=== PATIENT | female | born 1935 | race Caucasian/White ===

== ENCOUNTER 2022-10-17 07:57 | Outpatient (CLI) | payer MEDICARE, BC, SELFPAY ==
--- NOTE | 2022-10-17 08:15 | CRLHL7_ITS ---
For Patients: As a result of the Century Cures Act, medical imaging exams and procedure reports are released immediately into your electronic medical record. You may view this report before your referring provider. If you have questions, please contact your health care provider. INDICATION: Right upper quadrant pain COMPARISON: Ultrasound 12/15/2017, [facility]IDA 01/27/2018 TECHNIQUE: Real time ece scale imaging and color Doppler analysis was performed of the right upper quadrant. FINDINGS: The patient`s liver is of normal size and has uniform echogenicity. There is a normal appearance of the hepatic IVC and proximal abdominal aorta. There is no evidence of ascites. 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 No stones or sludge. The gallbladder wall measures 2.6 mm in thickness. The common bile duct is of normal size and measures 2.6 mm in diameter at the level of the sterling hepatis. The pancreas appears normal. There is no evidence of a stone or hydronephrosis within the right kidney. The right kidney measures 8.8 cm in length. IMPRESSION: The gallbladder is contracted, unchanged from 2018. Remainder normal. Dictated by Misael Olson MD @ 10/17/2022 9:27:45 AM (Electronically Signed)
== END 2022-10-17 07:58 | disposition home or self-care (01) ==
LOC: US 07:58
PROVIDERS: PCP Internal Medicine; Visit Provider Internal Medicine
DX: R10.11 Right upper quadrant pain (principal)
CPT/HCPCS: 76705

== ENCOUNTER 2022-10-18 13:44 | Outpatient (CLI) | payer MEDICARE, BC, SELFPAY | END 2022-10-18 13:45 | disposition home or self-care (01) | LOC: NFLDREF 14:29 | PROVIDERS: PCP Internal Medicine; Visit Provider Internal Medicine | DX: R19.5 Other fecal abnormalities (principal) | CPT/HCPCS: 87045; 87046; 87077; 87252; 87427 ==

== ENCOUNTER 2022-12-09 19:02 | Outpatient (CLI) | payer MEDICARE, BC, SELFPAY | END 2022-12-09 19:03 | disposition home or self-care (01) | LOC: NFLDUCREF 12-11 13:47 | PROVIDERS: PCP Internal Medicine; Visit Provider Nurse Practitioner Family | DX: R30.0 Dysuria (principal); N39.0 Urinary tract infection, site not specified | CPT/HCPCS: 87086 ==

== ENCOUNTER 2022-12-16 14:57 | Outpatient (CLI) | payer MEDICARE, BC, SELFPAY | END 2022-12-16 14:58 | disposition home or self-care (01) | PROVIDERS: PCP Internal Medicine; Visit Provider Internal Medicine | DX: N39.0 Urinary tract infection, site not specified (principal) | CPT/HCPCS: 87086 ==

== ENCOUNTER 2022-12-23 08:13 | Outpatient (CLI) | payer MEDICARE, BC, SELFPAY | END 2022-12-23 08:14 | disposition home or self-care (01) | LOC: NFLDREF 12-27 09:55 | PROVIDERS: PCP Internal Medicine; Referring Provider Internal Medicine; Visit Provider Internal Medicine | DX: R30.9 Painful micturition, unspecified (principal); N76.0 Acute vaginitis | CPT/HCPCS: 87086 ==

== ENCOUNTER 2023-06-12 13:44 | Outpatient (CLI) | payer MEDICARE, BC, SELFPAY ==
--- NOTE | 2023-06-12 14:00 | CRLHL7_ITS ---
For Patients: As a result of the Century Cures Act, medical imaging exams and procedure reports are released immediately into your electronic medical record. You may view this report before your referring provider. If you have questions, please contact your health care provider. BILATERAL SCREENING MAMMOGRAM WITH COMPUTER-AIDED DETECTION AND TOMOSYNTHESIS TECHNIQUE: CC and MLO views were obtained. These mammographic images have been obtained using full-field digital technique. These mammographic images were interpreted with the benefit of computer-aided detection. Breast Tomosynthesis was used in this interpretation. COMPARISON FILM: 03/19/22, 03/16/21, 03/15/20. FINDINGS: There are scattered areas of fibroglandular density IMPRESSION: There is no radiographic evidence for malignancy. ASSESSMENT: BI-RADS Category 2: Benign RECOMMENDATION: Routine screening mammogram in 1 year. A lay language report of this examination will be provided to the patient. Misael Olson M.D. Diagnostic Radiologist [email or web address] CELI/Dictated by: Misael Olson MD @ 06/19/2023 12:05:00 PM (Electronically Signed)
== END 2023-06-12 13:45 | disposition home or self-care (01) ==
LOC: MAMMO 13:46
PROVIDERS: PCP Physician Assistant; Visit Provider Physician Assistant
DX: Z12.31 Encounter for screening mammogram for malignant neoplasm of breast (principal)
CPT/HCPCS: 77063; 77067

== ENCOUNTER 2023-07-07 07:30 | Outpatient (RCR) | payer MEDICARE, BC, SELFPAY | END 2023-08-11 08:25 | disposition home or self-care (01) | PROVIDERS: PCP Internal Medicine; Visit Provider Urology | DX: M79.605 Pain in left leg (principal); M62.81 Muscle weakness (generalized); Z51.89 Encounter for other specified aftercare | CPT/HCPCS: 97110; 97161 ==

== ENCOUNTER 2023-07-21 10:19 | Emergency (ER) | payer MEDICARE, BC, SELFPAY ==
[2023-07-21 10:26] VITALS: BP 155/81; PULSE 77; RESP 16; TEMP 36.7; O2SAT 100; BMI 20.4
--- NOTE | 2023-07-21 10:45 | ED_ITS ---
HPI - General Adult General Time Seen by Provider: 10:45 Date Seen: 07/21/23 Chief complaint: Lower Extremity Swelling Stated complaint: Swelling in L leg Time Seen by Provider: 07/21/23 10:40 Source: patient and RN notes reviewed Mode of arrival: ambulatory Limitations: no limitations History of Present Illness HPI narrative: This 88-year-old female is ambulatory into the ED with concern of increasing left lower extremity swelling. She has a history of left leg swelling which reportedly is worse than her right. She does endorse that she has a compression stocking that was prescribed by her primary provider but admits that she is not diligent in wearing it. She has no history of a DVT or thromboembolic disease. She is not on any blood thinners. She is concerned as she has noted some red dots. She has no chest pain, no shortness of breath, no respiratory symptoms. Related Data Home Medications Medication Instructions Recorded Confirmed calcium carbonate 500 mg calcium 1,000 mg PO QDAY 05/15/22 07/21/23 (1,250 mg) tablet cholecalciferol (vitamin D3) 50 50 mcg PO QDAY 05/15/22 07/21/23 mcg (2,000 unit) capsule zinc gluconate 30 mg tablet 30 mg PO 2XW 05/15/22 07/21/23 Previous Rx's Medication Instructions Recorded lovastatin 10 mg tablet 5 mg (1/2 x 10 mg) PO QDAY 05/17/22 Hyperlipidemia #90 tabs estradiol 0.01% (0.1 mg/gram) 2 g vaginal QDAY Vaginitis #42.5 01/29/23 vaginal cream (Estrace) grams gabapentin 100 mg capsule 100 - 200 mg (1 - 2 x 100 mg) PO 03/07/23 QID Neuropathy #90 caps Allergies Allergy/AdvReac Type Severity Reaction Status Date / Time No Known Allergies Allergy Verified 07/21/23 10:31 Review of Systems Status of ROS: Reports: 6 or more systems reviewed and unremarkable except as noted in History and below [facility] Medical History Vaginitis ?N76.0 - Acute vaginitis (ICD-10) UTI (urinary tract infection) ?N39.0 - Urinary tract infection, site not specified (ICD-10) Health care directive on file ?Z78.9 - Other specified health status (ICD-10) Loose stools ?R19.5 - Other fecal abnormalities (ICD-10) Trochanteric bursitis, right hip ?M70.61 - Trochanteric bursitis, right hip (ICD-10) Surgical History History of appendectomy (04/19/11) ?Z90.49 - Acquired absence of other specified parts of digestive tract (ICD- 10) Social History Narrative: health care directive on file- health care directive completed on 06/28/20 and sent for scanning on 07/07/20. Smoking Status: Never smoker Exam Const: Vital Signs, click to edit/add: Vital Signs - 24 hr 07/21/23 10:26 Temperature 98.0 F Pulse Rate [Pulse Oximeter] 77 Respiratory Rate 16 Blood Pressure [Ri ght Upper Arm] 155/81 H Pulse Oximetry 100 Oxygen Delivery Me thod Room Air This 88-year-old female is alert, interactive, no apparent distress seen in exam room 7, lying comfortably on the bed. Face atraumatic, sclera clear, conjugate gaze. Lungs are clear with good air entry, no wheezing crackles. CV regular rate and rhythm, no murmur, normal S1 and S2. Abdomen is soft, no rebound or guarding. Her lower extremities show that she has about 2+ pretibial pitting edema in the left lower extremity, none on the right. She has capillary breakage with small little micro 0 non blanchable hemorrhages in the lower left extremity just above the ankle. There is some underlying hemosiderin staining that can be seen as well distally in this leg. There is no evidence of any erythematous changes such as cellulitis. Reviewed with her the capillary breakage that happens with edema. Calf is nontender at this point. Documenting provider has reviewed patient's vital signs: yes Course Course ED Course: Will ensure no underlying thromboembolic disease with venous ultrasound of this left lower extremity. If this is negative, have discussed with her the importance of treating edema and trying to prevent it from sitting in the extremity chronically. Did review that there can be chronic skin changes in breakdown if left untreated. She does endorse that the stocking is difficult for her to get on. At this time, will ensure no underlying thromboembolic disease and if we do diagnose it, obviously treat accordingly. Reevaluation(s) Time of Reevaluation #1: 11:35 Reevaluation #1: Reviewed with patient that there was no evidence of a DVT on this imaging study. We reviewed the edema in her leg, which is swelling. She wanted to know what to do about the swelling, reviewed with her that she really needed to manage this with elevating and using her compression stocking. They wanted to know if this would go away with time, reviewed with him that this is going to be a chronic problem from what I am seen in her leg currently. She is really going to need to manage with using the stocking to prevent the edema. Can follow up with her primary care provider and discuss diuretic use if felt appropriate for her. The compression stocking and elevation is where I would recommend starting, this is the least invasive for her and less likely to give side effects of medications. Her edema is not significant enough that I think she needs anything further than these management strategies at this time, follow up with her primary care provider in clinic as well. Vital Signs Vital signs: Initial Vital Signs Temperature 98.0 F 07/21/23 10:26 Temperature Source Temporal Artery Scan 07/21/23 10:26 Pulse Rate 77 07/21/23 10:26 Respiratory Rate 16 07/21/23 10:26 Blood Pressure 155/81 H 07/21/23 10:26 Blood Pressure Mean 105 07/21/23 10:26 Blood Pressure Position Sitting 07/21/23 10:26 Pulse Oximetry 100 07/21/23 10:26 Oxygen Delivery Method Room Air 07/21/23 10:26 Vital Signs Temperature 98.0 F 07/21/23 10:26 Pulse Rate 77 07/21/23 10:26 Respiratory Rate 16 07/21/23 10:26 Blood Pressure 155/81 H 07/21/23 10:26 Pulse Oximetry 100 07/21/23 10:26 Oxygen Delivery Method Room Air 07/21/23 10:26 Temperature 98.0 F 07/21/23 10:26 Pulse Rate 77 07/21/23 10:26 Respiratory Rate 16 07/21/23 10:26 Blood Pressure 155/81 H 07/21/23 10:26 Pulse Oximetry 100 07/21/23 10:26 Oxygen Delivery Method Room Air 07/21/23 10:26 Medical Decision Making Imaging Data Venous US: Attestation: I have reviewed the pertinent imaging results. Radiologist's impression: Patient: JULIANA IRAHETA Facility:?[facility] Patient ID:?[id number] Site Patient ID:?[id number]. Site :?[id number] Study:?US Extremity Left DVT-07/21/2023 11:35:22 AM Ordering Physician:Liam Hagen Final Report: INDICATION: left lag/foot swelling/pain/redness COMPARISON: None. TECHNIQUE: A compression venous ultrasound exam was performed of the left lower extremity using cee-scale imaging, color Doppler and spectral Doppler analysis. FINDINGS: Sonographic imaging of the left lower extremity demonstrates normal compressibility and color Doppler venous blood flow within the common femoral vein, deep femoral vein, and the proximal greater saphenous vein. Within the thigh, the femoral vein is patent and compressible. At a lower level, the popliteal and posterior tibial veins also show normal compressibility and color Doppler venous blood flow. Limited imaging of the contralateral groin demonstrates a normal spectral waveform and color Doppler venous blood flow within the right common femoral vein. IMPRESSION: Normal venous ultrasound exam. No evidence of deep vein thrombosis within the left lower extremity. Dictated by Misael Olson MD @ 07/21/2023 11:45:42 AM (Electronic Signature) Critical Care Time Critical Care Time Critical Care Time: No Discharge Plan Discharge Clinical Impression: Edema of left lower extremity Patient Disposition: Home, Self-Care Condition: Stable Instructions: Leg Edema (ED) Additional Instructions: Need to wear your compression stocking every day during the day to help keep this edema down. Elevating your leg when you are sitting can help diminish edema as well. Recommend you follow-up with your primary care provider within the next few weeks to review your peripheral edema and management strategies. There is no evidence of blood clot at this time, no clinical evidence of any infection. The little red spots you are seen are little blood vessel breaks from the edema in the skin. Activity Level: Activity as Tolerated Prescriptions: No Action calcium carbonate 500 mg calcium (1,250 mg) tablet 1,000 mg PO QDAY cholecalciferol (vitamin D3) 50 mcg (2,000 unit) capsule 50 mcg PO QDAY zinc gluconate 30 mg tablet 30 mg PO 2XW lovastatin 10 mg tablet 5 mg PO QDAY Qty: 90 3RF estradiol [Estrace] 0.01 % (0.1 mg/gram) cream 2 g vaginal QDAY Qty: 42.5 2RF gabapentin 100 mg capsule 100 - 200 mg PO QID Qty: 90 3RF Rx Instructions: 100mg TID and 200mg at HS Follow Up/Referrals: Gisel Mullen PA-C [Primary Care Provider] - Stand Alone [facility] Info Inst[facility]
--- NOTE | 2023-07-21 10:50 | CRLHL7_ITS ---
For Patients: As a result of the Century Cures Act, medical imaging exams and procedure reports are released immediately into your electronic medical record. You may view this report before your referring provider. If you have questions, please contact your health care provider. INDICATION: left lag/foot swelling/pain/redness COMPARISON: None. TECHNIQUE: A compression venous ultrasound exam was performed of the left lower extremity using cee-scale imaging, color Doppler and spectral Doppler analysis. FINDINGS: Sonographic imaging of the left lower extremity demonstrates normal compressibility and color Doppler venous blood flow within the common femoral vein, deep femoral vein, and the proximal greater saphenous vein. Within the thigh, the femoral vein is patent and compressible. At a lower level, the popliteal and posterior tibial veins also show normal compressibility and color Doppler venous blood flow. Limited imaging of the contralateral groin demonstrates a normal spectral waveform and color Doppler venous blood flow within the right common femoral vein. IMPRESSION: Normal venous ultrasound exam. No evidence of deep vein thrombosis within the left lower extremity. Dictated by Misael Olson MD @ 07/21/2023 11:45:42 AM (Electronically Signed)
== END 2023-07-21 11:47 | disposition home or self-care (01) ==
PROVIDERS: Emergency Provider Family Medicine; PCP Physician Assistant
DX: R60.9 Edema, unspecified (principal)
CPT/HCPCS: 93971; 99283; 99284

== ENCOUNTER 2023-07-23 10:30 | Outpatient (RCR) | payer MEDICARE, BC, SELFPAY | END 2023-09-22 09:00 | disposition home or self-care (01) | PROVIDERS: PCP Physician Assistant; Visit Provider Physician Assistant | DX: R42 Dizziness and giddiness (principal); R26.81 Unsteadiness on feet; Z51.89 Encounter for other specified aftercare | CPT/HCPCS: 97112; 97162; 97535 ==

== ENCOUNTER 2024-07-02 20:14 | Emergency (ER) | payer MEDICARE, BC, SELFPAY ==
[2024-07-02 20:22] VITALS: BP 168/100; PULSE 79; RESP 18; TEMP 37.2; O2SAT 98; BMI 19.8
--- NOTE | 2024-07-02 21:05 | ED_ITS ---
HPI - General Adult General Chief complaint: Abdominal Pain Stated complaint: Upper abdominal pain Time Seen by Provider: 07/02/24 20:46 History of Present Illness HPI narrative: Pt c/o epigastric pain that started following dinner tonight. Pt states she has a hx of these episodes that started two years ago following bladder and gallbladder removal d/t bladder cancer. Pt states she also had other organs removed but is unsure of which ones. Pt states she had COVID 10 days ago. 89-year-old woman presenting to the emergency department accompanied by family friend with complaint of cramping and sharp epigastric/upper abdominal pain that occurred a little bit after eating supper this evening. Lasted perhaps for 2 hours. This has occurred episodically since bladder resection and removal of other organs as she states that for bladder cancer. It sounds as though did h ave some imaging done that was inconclusive related to this pain. At this time it pain is fading. Maybe lasted about 2 hours. Denies a history of heartburn. Denies that is constipated. Information complicated initially by difficulty with recall. Discussed also with . Unsure when last episode was. Further information obtained from daughter and acknowledged by Mary that following the weekend has, what sounds like extensive re-evaluation pending at [facility]. Located IV contrasted CT imaging of abdomen and pelvis which was done September 2023. No significant findings other than constipation. Related Data Home Medications ?Medication ?Instructions ?Recorded ?Confirmed calcium carbonate 1,000 mg PO QDAY 05/15/22 07/02/24 cholecalciferol (vitamin D3) 50 50 mcg PO QDAY 05/15/22 07/02/24 mcg (2,000 unit) capsule zinc gluconate 30 mg tablet 30 mg PO 2XW 05/15/22 07/02/24 cyanocobalamin (vitamin B-12) PO 07/02/24 Previous Rx's ?Medication ?Instructions ?Recorded lovastatin 10 mg tablet 5 mg (1/2 x 10 mg) PO QDAY 05/17/22 Hyperlipidemia #90 tabs gabapentin 100 mg capsule 100 - 200 mg (1 - 2 x 100 mg) PO 03/07/23 QID Neuropathy #90 caps Allergies Allergy/AdvReac Type Severity Reaction Status Date / Time No Known Allergies Allergy Verified 07/02/24 20:28 Review of Systems Status of ROS: Reports: 6 or more systems reviewed and unremarkable except as noted in History and below [facility] Medical History Vaginitis ?N76.0 - Acute vaginitis (ICD-10) UTI (urinary tract infection) ?N39.0 - Urinary tract infection, site not specified (ICD-10) Health care directive on file ?Z78.9 - Other specified health status (ICD-10) Loose stools ?R19.5 - Other fecal abnormalities (ICD-10) Trochanteric bursitis, right hip ?M70.61 - Trochanteric bursitis, right hip (ICD-10) Surgical History History of appendectomy (04/19/11) ?Z90.49 - Acquired absence of other specified parts of digestive tract (ICD- 10) Social History Narrative: health care directive on file- health care directive completed on 06/28/20 and sent for scanning on 07/07/20. Smoking Status: Never smoker Do you use any of these nicotine containing products: None Second hand tobacco smoke exposure: No How often do you have a drink containing alcohol: 2-3 times a week AUDIT-C Alcohol total score: 3 Non-prescribed substance use: denies use Exam Narrative: Exam Narrative: Pleasant. Calm. NAD. Fully alert and does not appear to be in particular distress. Skin is warm and dry. No significant edema peripherally. She is well-perfused. Heart in regular rate and rhythm. Lungs are clear. Abdomen with present bowel sounds is soft. Urostomy noted with only yellow urine. No inflammatory changes. Mildly uncomfortable to palpation in the epigastrium. No peritoneal signs. Const: Vital Signs, click to edit/add: Vital Signs - 24 hr 07/02/24 20:22 Temperature 98.9 F Pulse Rate [Pulse Oximeter] 79 Respiratory Rate 18 Blood Pressure [Ri ght Upper Arm] 168/100 H Pulse Oximetry 98 Oxygen Delivery Me thod Room Air Documenting provider has reviewed patient's vital signs: yes Course Vital Signs Vital signs: Initial Vital Signs Temperature 98.9 F 07/02/24 20:22 Temperature Source Temporal Artery Scan 07/02/24 20:22 Pulse Rate 79 07/02/24 20:22 Respiratory Rate 18 09/13/24 20:22 Blood Pressure 168/100 H 07/02/24 20:22 Blood Pressure Mean 122 H 07/02/24 20:22 Blood Pressure Position Sitting 07/02/24 20:22 Pulse Oximetry 98 07/02/24 20:22 Oxygen Delivery Method Room Air 07/02/24 20:22 Vital Signs Temperature 98.9 F 07/02/24 20:22 Pulse Rate 79 07/02/24 20:22 Respiratory Rate 18 07/02/24 20:22 Blood Pressure 168/100 H 07/02/24 20:22 Pulse Oximetry 98 07/02/24 20:22 Oxygen Delivery Method Room Air 07/02/24 20:22 Temperature 98.9 F 07/02/24 20:22 Pulse Rate 79 07/02/24 20:22 Respiratory Rate 18 07/02/24 20:22 Blood Pressure 168/100 H 07/02/24 20:22 Pulse Oximetry 98 07/02/24 20:22 Oxygen Delivery Method Room Air 07/02/24 20:22 Medications Administered Medications: Discontinued Medications Generic Name Dose Route Start Last Admin Trade Name Freq PRN Reason Stop Dose Admin Lidocaine/Aluminum/Magnesium/Simeth 30 ml 07/02/24 21:25 07/02/24 21:53 Gi Cocktail (Visc Lido/Antacid) 30 Ml PO 07/02/24 21:26 30 ml ONCE ONE Administration Medical Decision Making MDM Narrative Medical decision making narrative: Following initial conversation/interview and exam I discussed that are unlikely to find any new changes/anomalies. Might be beneficial to check labs looking for possible evidence of cardiac event. Sounds to be potential spasming of musculature etiology unclear. I suppose could be biliary colic. Similar symptoms with all findings in the past is reassuring. Does not appear to need any intervention for pain or nausea. Labs are unremarkable. No spike in transaminases. Normal white count. Good kidney function. I think can be safely discharged without further evaluation pending evaluation as already scheduled with [facility] where has had other cares. See patient discharge plan for further discussion. Medical Records Medical records reviewed: Yes I reviewed the patient's medical records Lab Data Lab results reviewed: Yes I reviewed the patient's lab results Labs: Lab Results 07/02/24 Range/Units 21:47 WBC 6.58 (4.50-11.00) K/uL RBC 4.21 (4.00-5.20) m/uL Hgb 12.3 (12.0-16.0) gm/dL Hct 36.8 (33.0-51.0) % MCV 87 (80-100) fL MCH 29 (26-34) pg MCHC 33 (32-36) gm/dL RDW Coeff of Marie 13.5 (11.5-15.5) % Plt Count 299 (140-440) K/uL Neut % (Auto) 71.4 (42.0-72.0) % Lymph % (Auto) 19.3 L (20-44) % [place] % (Auto) 8.5 (0.0-11.0) % Eos % (Auto) 0.3 (0.0-7.0) % Baso % (Auto) 0.3 (0.0-3.0) % Neut # (Auto) 4.70 (1.7-7.0) K/uL Lymph # (Auto) 1.30 (0.90-2.90) K/uL [place] # (Auto) 0.60 (0.00-0.90) K/UL Eos # (Auto) 0.02 (0.00-0.50) K/uL Baso # (Auto) 0.02 (0.00-0.30) K/uL Abs Immat Gran (auto) 0.01 (0.00-0.30) K/uL Imm/Tot Granulo (auto) 0.2 % Sodium 137 (135-149) mmol/L Potassium 3.6 (3.6-5.1) mmol/L Chloride 99 (96-114) mmol/L Carbon Dioxide 28 (20-32) mmol/L Anion Gap 10 (7-15) mEq/L BUN 23 (7-30) mg/dL Creatinine 0.6 (0.5-1.5) mg/dL Estimated Creat Clear 31.19 Estimated GFR 86 ml/min Glucose 153 H (60-115) mg/dL Calcium 9.1 (8.4-10.6) mg/dL Total Bilirubin 0.5 (0.1-1.5) mg/dL Direct Bilirubin 0.3 (0.0-0.5) mg/dL AST 24 (12-35) U/L ALT 18 (4-35) U/L Alkaline Phosphatase 80 (40-150) U/L Total Protein 7.2 (6.0-8.3) g/dL Albumin 4.2 (3.3-5.0) g/dL Discharge Plan Discharge Clinical Impression: Recurrent upper abdominal pain Patient Disposition: Home w/ Parent or Adult Condition: Improved Additional Instructions: Please feel free to return for persistent uncontrolled pain, associated fever, repeated vomiting. Please follow-up on Friday as scheduled. Pleasure to meet you. Prescriptions: No Action cyanocobalamin (vitamin B-12) PO calcium carbonate 500 mg calcium (1,250 mg) tablet 1,000 mg PO QDAY cholecalciferol (vitamin D3) 50 mcg (2,000 unit) capsule 50 mcg PO QDAY zinc gluconate 30 mg tablet 30 mg PO 2XW lovastatin 10 mg tablet 5 mg PO QDAY Qty: 90 3RF gabapentin 100 mg capsule 100 - 200 mg PO QID Qty: 90 3RF Rx Instructions: 100mg TID and 200mg at HS Follow Up/Referrals: Gisel Mullen PA-C [Primary Care Provider] - Stand Alone Forms: [facility] Info Instructions
[2024-07-02] MEDS: GI COCKTAIL (VISC LIDO/ANTACID) 30 ML PO (21:53)
[2024-07-02 21:54] LABS: Basophils Absolute Auto 0.02 K/uL (0.00-0.30); Basophils Percent Auto 0.3 % (0.0-3.0); Eosinophils Absolute Auto 0.02 K/uL (0.00-0.50); Eosinophils Percent Auto 0.3 % (0.0-7.0); Hematocrit 36.8 % (33.0-51.0); Hemoglobin* 12.3 gm/dL (12.0-16.0); Immature Granulocytes Abs Auto 0.01 K/uL (0.00-0.30); Immature Granulocytes Pct Auto 0.2 %; Lymphocytes Percent Auto 19.3 % (20-44); Mean Corpuscular HGB Conc 33 gm/dL (32-36); Mean Corpuscular Hemoglobin 29 pg (26-34); Mean Corpuscular Volume 87 fL (80-100); Monocytes Percent Auto 8.5 % (0.0-11.0); Neutrophils Percent Auto 71.4 % (42.0-72.0); Platelet Count* 299 K/uL (140-440); RDW Coefficient of Variation % 13.5 % (11.5-15.5); Red Blood Count 4.21 m/uL (4.00-5.20); White Blood Count* 6.58 K/uL (4.50-11.00)
--- OUTSIDE RECORDS SUMMARY | 2024-07-02 21:54 | XMS_ITS | Clinical Summary ---
Author Organization [employer] [facility] Address [place], [place] [address] Care Team Providers Care Pump Service Supervisor Name Role Phone Gisel Mullen Primary Care Provider [phone] Allergies No known active allergies Medications Medication Sig Dispensed Refills Start Date End Date Status cholecalciferol (Vitamin D) 1,000 unit tablet Take 2,000 units by mouth once daily. Active Zinc Gluconate 30 mg tablet Take 30 mg by mouth. One tab twice weekly Active calcium carbonate (OS-KARIME 500) 500 mg calcium (1,250 mg) tablet Take 1,000 mg by mouth once daily with a meal. Active gabapentin (NEURONTIN) 100 mg capsuleIndications:N europathic pain Take 2 Capsules (200 mg) by mouth three times daily. 540 Capsule 3 04/24/2023 Active Graduated Compression StockingsIndications :Venous insufficiency For personal use. Length: calf Strength: 20-30 mmHg size medium 2 Packet 06/27/2023 Active lovastatin (MEVACOR) 10 mg tabletIndications:Mi xed hyperlipidemia TAKE ONE-HALF TABLET (5 MG) BY MOUTH AT BEDTIME 45 Tablet 2 05/05/2024 Active celecoxib (CELEBREX) 100 mg capsuleIndications:C hronic pain of left knee Take 1 Capsule (100 mg) by mouth 2 times daily if needed for Pain. 60 Capsule 1 07/01/2024 Active meclizine (ANTIVERT) 12.5 mg tabletIndications:Ve rtigo Take 1 Tablet (12.5 mg) by mouth 2 times daily if needed for Vertigo. 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, left leg 11/22/2023 Lymphedema 08/08/2023 Cerebral microvascular disease 06/10/2023 Neuropathic pain 04/25/2023 Mixed hyperlipidemia 04/25/2023 Primary cancer of bladder 04/25/2023 Overview (04/25/2023): Status post vaginal sparing radical cystectomy, bilateral pelvic lymph node dissection, hysterectomy BSA and ileal conduit creation History of breast cancer 04/25/2023 Overview (04/25/2023): History of breast cancer-previous chemo/radiation treatment Osteopenia 04/25/2023 Endometrial cancer 04/25/2023 Resolved Problems Problem Noted Date Diagnosed Date Resolved Date Screening, malignant neoplasm, bladder 04/25/2023 04/25/2023 Encounters Date Type Department Care Team Description 07/01/2024 3:15 PM CDT Ancillary Procedure [facility] [address] [place] [address] Arrived 07/01/2024 2:10 PM CDT Office Visit [facility] [address] [place] [address] Gisel Mullen PA Leg Pain/problem (Left leg pain behind her knee-seems better today but for the last two weeks could hardly walk on it-had to pull on her railing to get up or down the stairs-had to think about how to walk when she got out of bed) 07/01/2024 Travel 06/23/2024 Telephone [facility] [address] [place] [address] Gisel Mullen PA Home Care 06/22/2024 Telephone [facility] [address] [place] [address] Gisel Mullen PA Questions 06/14/2024 Nurse Triage [facility] [address] [place] [address] Gisel Mullen PA Leg Pain/problem (Left upper leg) 05/06/2024 Telephone [facility] [address] [place] [address] Gisel Mullen PA Medication Management (Questions for provider) 05/03/2024 Refill [facility] [address] [place] [address] Gisel Mullen PA Refill Request (Lovastatin) from Last 3 Months Immunizations Name Administration Dates Next Due COVID-19 VACCINE SPIKEVAX (M ODERNA 50MCG/0.5ML) 12YO+ PFS 08/08/2023 COVID-19 vaccine (Moderna 50mcg/0.5mL) 12YO+ BIVALENT PF, MDV 07/12/2022 COVID-19 vaccine (mSnap-Bio NTech 30mcg/0.3mL) 12YO+ BIVALENT PF, MDV 04/24/2023 Influenza Virus, Unspecified 07/18/2009 Influenza, High-dose Inactivated 019,07/20/2018,07/14/2017,2015,08/11/2014 Influenza, High-dose Quadriv alent Inactivated 08/07/2022,07/20/2021 Influenza, IIV3 (Age 6-35 mos) 07/30/2012,2009 Influenza, IIV3 (Age >=3 years) 08/29/2013,08/31,08/19/2006 Influenza, IIV4 08/17/2015 Influenza, Inactivated AIIV4 (Age 65+ Years) Preserv Free 08/08/2023 Pneumococcal Poly,23-Valent (Pneumovax) 09/24/2013 Pneumococcal conj 13-Valent (Prevnar 13) 01/24/2015 Td, Preservative Free (age > = 7 Years) 12/27/2017 Tdap 04/19/2011 Zoster (Shingrix-RZV, recombinant) 10/08/2018, Zoster (Zostavax-ZVL, live) 10/19/2012 Family History Medical History Relation Name Comments Depression Mother Relation Name Status Comments Mother Social History Tobacco Use Types Packs/Day Years Used Date Smoking Tobacco: Never Smokeless Tobacco: Never Tobacco Cessation:Counseling Given: Yes Alcohol Use Standard Drinks/Week Comments Not Currently 0 (1 standard drink = 0.6 oz pur e alcohol) PHQ-2 Answer Date Recorded PHQ-2 TOTAL SCORE 2 04/24/2023 Social Connections Answer Date Recorded Frequency of Communication with Friends and Fami ly Not on file 05/20/2024 Financial Resource Strain Answer Date R ecorded Difficulty of Paying Living Expenses 3 05/14/2023 Difficulty of Paying Living Expenses Not on file 05/14/2023 Food Insecurity Answer Date Recorded Worried About Running Out of Food in the Last Ye ar 1 05/14/2023 Transportation Needs Answer Date Record ed Lack of Transportation (Medical) 1 05/14/2023 Housing Stability Answer Date Recorded Unable to Pay for Housing in the Last Year 1 05/14/2023 Sex and Gender Information Value Date Recorded Sex Assigned at Not on file Gender Identity Not on file Sexual Orientation Not on file Obstetrics History Last Filed Vital Signs Vital Sign Reading Time Taken Comments Blood Pressure 125/76 07/01/2024 2:23 PM CDT Pulse 77 07/01/2024 2:23 PM CDT Temperature 36.6 ??C (97.9 ??F) 03/15/2024 1:14 PM CD T Respiratory Rate 14 03/15/2024 1:14 PM CDT Oxygen Saturation 97% 07/01/2024 2:23 PM CDT Inhaled Oxygen Concentration - - Weight 49.4 kg (109 lb) 07/01/2024 2:23 PM CDT Height 155.3 cm (5' 1.14) 04/24/2023 2:47 PM CD T Body Mass Index 20.5 04/24/2023 2:47 PM CDT Plan of Treatment Health Maintenance Due Date Last Done Comments RSV vaccine for adults or (1 - 1-dose 60+ series) 1996 BMI (ht and wt on same day) for age 18+ 04/24/2024 04/24/2023 Depression screening for age 12+ 04/24/2024 04/24/20 Medicare Wellness for age 65+ 04/24/2024 04/24/2023 COVID-19 vaccine series ( season) 2024 08/08/2023, 04/24/2023, 07/12/2022, Additional history exists Influenza for age 65+ 06/20/2024 08/08/2023 , 08/07/2022, 07/20/2021, Additional history exists Tetanus booster 12/28/2027 12/27/2017, 04/19/2011 Tdap Completed 04/19/2011 Pneumococcal series for age 65+ Completed 5, 09/24/2013 Zoster (shingles) series for age 50+ Completed 10/08/2018, 08/05/2018, 10/19/2012 DEXA/DXA scan for age 65+ Completed 2019 (Completed outside of [facility]) Procedures Procedure Name Priority Date/Time Associated Diagnosis Comments XR KNEE WB 1 VIEW AP BILATERAL AND 1 VIEW LEFT Routine 07/01/2024 3:35 PM CDT Chronic pain of left knee from Last 3 Months Results * XR KNEE WB 1 VIEW AP BILATERAL AND 1 VIEW LEFT (07/01/2024 3:35 PM CDT) Anatomical Region Laterality Modality KNEES, KNEE L Computed Radiogr aphy 07/02/2024 2:33 PM CDT Narrative 07/02/2024 2:33 PM CDT For Patients: ??As a result of the Cures Act, medical imaging exams and procedure reports are released immediately into your electronic medical record. ??You may view this report before your referring provider. ??If you have questions, please contact your health care provider. Indication: Knee pain Technique: AP standing both knees and standing lateral view left knee Comparison: None Findings: Spurring at the quadriceps tendon insertion. Trace joint effusion. Mild medial compartment narrowing and spurring bilaterally. Spurring associated with the posterolateral tibial plateau on the left. 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 Dictated by Misael Olson MD @ 07/02/2024 2:33:19 PM (Electronically Signed) Procedure Note Misael Olson MD - 07/02/2024 For Patients: As a result of the 21st Century Cures Act, medical imagingexams and procedure reports are released immediately into your electronicmedical record. You may view this report before your referring provider.If you have questions, please contact your health care provider. Indication: Knee pain Technique: AP standing both knees and standing lateral view left knee Comparison: None Findings: Spurring at the quadriceps tendon insertion. Trace joint effusion. Mildmedial compartment narrowing and spurring bilaterally. Spurring associatedwith the posterolateral tibial plateau on the left. Impression: Medial and patellofemoral compartment degenerative joint disease leftknee. Dictated by Misael Olson MD @ 07/02/2024 2:33:19 PM (Electronically Signed) [facility] from Last 3 Months Advance Directives * Full Code (Latest Code Status on File) Date Activated Date Inactivated Comments 02/27/2023 10:24 AM 02/27/2023 6:06 PM Question Answer Comments Code Status Discussion: Unable to Assess Preferences, Provider to review later Care Teams Pump Service Supervisor Relationship Specialty Start Date End Date Gisel Mullen PA [address] [place] [address] PCP - General Physician Paid Internship 04/26/23
--- OUTSIDE RECORDS SUMMARY | 2024-07-02 21:54 | XMS_ITS | Data Portability ---
Author Organization [place] - [facility], [facility] Address [address] [place] [address] Assessment No assessment recorded. Plan of Treatment Reminders Order Date Submit Date Provider Last Modified By Organization Details Last Modified Time Details Appointments None recorded. Lab urinalysis , dipstick [address], [facility], [facility] [address], [place], [address], 3 15:25:13 Referral None recorded. Procedures bladder scan (PROC) [address], [facility], [facility] [address], [place], [address], 3 15:25:13 Surgeries None recorded. Imaging None recorded. Medication Orders Pyridium 100 mg tablet 2022 023 [facility] [address] [place], [address], 3 14:47:58 Patient TargetsNo targets recorded. Patient Instructions Encounter Date Encounter Id Patient Instructions Last Modified By Organization Details Last Modified Time 01/06/2023 [id number] UTI treatments a nd managements were discussed. Most of the time there is a predisposition for re-colonization and invasion of the urothelium by pathogens and no other pathology identified. I stressed the importance of obtaining urine culture at the time of UTI symptoms to guide the correct antibiotic choice and prevent antibiotic resistance. If UTIs only happen 2 - 4 times a year, self treatment with an antibiotic on hand could be cost effective. I went over the role of preventative UTI therapies such as: Timed and double voiding, D-mannose, Probiotics, Cranberry Pills & local vaginal estrogenation. [email or web address] Not available 01/06/2023 14:50:06 02/11/2023 [id number] will set up for TUR bladder tumor. [email or web address] discussed [email or web address] Not available 02/11/2023 15:57:51 03/07/2023 [id number] catheter removed today. she is seeing DR Fer[facility] at [place] on Friday for consultation about further management of her cancer. [email or web address] Not available 03/07/2023 12:36:40 Reason for Referral None Reported. Results Created Date Observation Date Name Description Value Unit Range Abnormal Flag Note LastModifiedBy Organization Detail LastModifiedTime 02/12/2002/11/2023 urina lysis , dipst ick Color-Status Yellow Not Available [address] [place], [place], [address], 02/11/2023 15:24:34 02/12/20 23 02/11/2023 urina lysis , dipst ick Clarity-Stat us Slight ly Cloudy Not Available [address] [place], [place], [address], 02/11/2023 15:24:34 02/12/20 23 02/11/2023 urina lysis , dipst ick Glucose-Stat us Negati ve Not Available [address], [place], [address], 02/11/2023 15:24:34 02/12/20 23 02/11/2023 urina lysis , dipst ick Bilirubin-St atus Negati ve Not Available [address], [place], [address], 02/11/2023 15:24:34 02/12/20 23 02/11/2023 urina lysis , dipst ick Ketones-Stat us Negati ve Not Available [address], [place], [address], 02/11/2023 15:24:34 02/12/20 23 02/11/2023 urina lysis , dipst ick Sp [place]-Stat us 1.015 Not Available [address], [place], [address], 02/11/2023 15:24:34 02/12/20 23 02/11/2023 urina lysis , dipst ick pH-Status 7.0 Not Available [address], [place], [address], 02/11/2023 15:24:34 02/12/20 23 02/11/2023 urina lysis , dipst ick Urobilinogen -Status 0.2 Not Available [address], [place], [address], 02/11/2023 15:24:34 02/12/20 23 02/11/2023 urina lysis , dipst ick Nitrates-Sta tus negati ve Not Available [address], [place], [address], 02/11/2023 15:24:34 02/12/20 23 02/11/2023 urina lysis , dipst ick Blood-Status Small Not Available [address], [place], [address], 02/11/2023 15:24:34 02/12/20 23 02/11/2023 urina lysis , dipst ick Leuko-Status Trace Not Available [place] [id number] [facility] [address], [place], [address], 02/11/2023 15:24:34 02/12/20 23 02/11/2023 urina lysis , dipst ick Specimen Type Voided Not Available [facility] [place] [address] [facility] [address], [place], [address], 02/11/2023 15:24:34 02/12/20 23 02/11/2023 bladd er scan (PROC ) Volume (in mL) 0ml Not Available [facility] [place] [address] [facility] [address], [place], [address], 02/11/2023 15:20:28 03/05/20 23 02/11/2023 bladd er scan (PROC ) No observ ation record ed. BARCODE Not Available 2022 13:16:47 Result Notes None recorded. Procedures Surgical History Date Name Laterality Status Provider Name and Address Organization Details Recorded Time 3 Castaneda Catheter Removal completed Michelle February bronwyn [facility] 03/05/2023 16:30:19 3 Cystoscopy- female completed Sanjay Knapp MD [address] [facility],[address], [place], [address], [facility] 02/11/2023 15:57:10 3 Bladder Scan completed Michelle barnhart [facility] 02/11/2023 15:20:09 3 Bladder Scan completed Radha barnhart [facility] 01/06/2023 14:13:41 Imaging Results Imaging Date Name Status LastModified by Organiz ation Details LastModified Time 02/11/2023 bladder scan (PROC) completed BARCODE Information not available 03/05/2023 13:16:47 Procedure Notes None recorded. Medical Equipment None Reported. Allergies No known drug allergies Medications Name Sig Start Date Stop Date Status Note LastModified by Organization Details LastModified Time Pyridium 100 mg tablet Take 1 tablet 3 times a day by oral route as directe d. 2022 active Not Available Not Available Not Avai lable ciprofloxacin 250 mg tablet 02/11 completed Not Available Not Available Not Available sulfamethoxaz ole 800 mg-trimethopr im 160 mg tablet 03/07 completed Not Available Not Available Not Available lovastatin 10 mg tablet active Not Available Not Available No t Available oxycodone-ghada taminophen 5 mg-325 mg tablet 03/07 completed Not Available Not Available Not Available cephalexin 500 mg capsule 03/07 completed Not Available Not Available Not Available gabapentin 300 mg capsule active Not Available Not Available Not Available gabapentin 100 mg capsule 03/07 completed Not Available Not Available Not Available estradiol 0.01% (0.1 mg/gram) vaginal cream active Not Available Not Availabl e Not Available amoxicillin 875 mg-potassium clavulanate 125 mg tablet 02/11 completed Not Available Not Available Not Available Vitals Date Recorded Body height Body mass index (BMI) Body weight Provider Name and Address Organization Details Last Updated DateTime 01/06/2023 157.48 cm 21.9 kg/m2 92298.08 g Radha Brunson [facility] 01/06/2023 14:13:03 Date Recorded Body height Body mass index (BMI) Body weight Provider Name and Address Organization Details Last Updated DateTime 02/11/2023 157.48 cm 21.9 kg/m2 58535.08 g Michelle [facility] 02/11/2023 15:11:51 Date Recorded Body height Body mass index (BMI) Body weight Provider Name and Address Organization Details Last Updated DateTime 03/07/2023 157.48 cm 21.9 kg/m2 87930.08 g Carine Leija [facility] 03/07/2023 12:06:43 Social History Question Answer Notes LastModified by Organizat ion Details LastModified Time Tobacco Smoking Status Never Smoker Radha barnhart [facility] 01/06/2023 14:13:23 What Is Your Level Of Alcohol Consumption? None [email or web address] Information not available 02/11/2023 What Is Your Level Of Caffeine Consumption? None [email or web address] Information not available 02/11/2023 What Was The Date Of Your Most Recent Tobacco Screening? 02/11/2023 [email or web address] Information not available 02/11/2023 Do You Use Any Illicit Or Recreational Drugs? No [email or web address] Information not available 02/11/2023 Has Tobacco Cessation Counseling Been Provided? No [email or web address] Information not available 02/11/2023 Do You Or Have You Ever Used Any Other Forms Of Tobacco Or Nicotine? No [email or web address] Information not available 02/11/2023 Sex: Unknown Functional Status None recorded. Mental Status None recorded. Family History Relationship Description Onset Age of this Age Resolved Age Notes Father No current problems or disability Mother No current problems or disability Medical History Condition Response Sexually Transmitted Infection N Diabetes N Bleeding Disorder N High Blood Pressure N Kidney Stones N Cancer N Depression N Lung Disease N High Cholesterol Y GERD/Acid Reflux N Heart Disease N Gynecological History Statement/Question Response Sexually Active? N Obstetrics History GPAL:G 0 P 0 0 0 0 Immunizations Vaccine Type Date Status Provider Name and Address Organization Details Recorded Time COVID-19, mRNA, LNP-S, PF, 30 mcg/0.3 mL dose 11/25/2020 completed Michelle February bronwyn, [facility] 02/11/2023 15:12:45 COVID-19, mRNA, LNP-S, PF, 30 mcg/0.3 mL dose 12/16/2020 [facility]11[facility] 15:12:45 COVID-19, mRNA, LNP-S, PF, 30 mcg/0.3 mL dose 02/05/2022 [facility], [facility] 02/11/2023 15:12:45 COVID-19, mRNA, LNP-S, PF, 30 mcg/0.3 mL dose 07/15/2021 completed Michelle February bronwyn, [facility] 02/11/2023 15:12:45 pneumococcal polysaccharide PPV23 09/24/2013 [facility] 02/11/2023 15:12:45 Pneumococcal conjugate PCV 13 01/24/2015 completed Michelle February bronwyn, [facility] 02/11/2023 15:12:45 zoster recombinant 08/05/2018 completed Klaudia barnhart, [facility] 09/19/2023 14:52:57 zoster recombinant 10/08/2018 completed Klaudia Keenan null, [facility] 09/19/2023 14:52:57 Influenza, high-dose, quadrivalent, PF 07/20/2021 completed Klaudia Keenan null, [facility] 09/19/2023 14:52:57 Influenza, high-dose, quadrivalent, PF 08/07/2022 completed Klaudia Keenan null, [facility] 09/19/2023 14:52:57 COVID-19, mRNA, LNP-S, bivalent, PF, 50 mcg/0.5 mL or 25mcg/0.25 mL dose 07/12/2022 [facility] 14:52:57 influenza, unspecified formulation 07/18/2009 [facility]2023 14:52:57 Tdap 04/19/2011 [facility]2023 14:52:57 zoster live 10/19/2012 [facility]23 14:52:57 Influenza, high-dose, trivalent, PF 07/14/2017 [facility] 14:52:57 Influenza, high-dose, trivalent, PF 07/20/2018 completed Klaudia Nailsre null, [facility] 09/19/2023 14:52:57 Influenza, high-dose, trivalent, PF 08/11/2014 completed Klaudia Nailsre null, [facility] 09/19/2023 14:52:57 Influenza, high-dose, trivalent, PF 08/15/2016 completed Klaudia Nailsre null, [facility] 09/19/2023 14:52:57 Influenza, high-dose, trivalent, PF 08/17/2019 completed Klaudia Keenan null, [facility] 09/19/2023 14:52:57 Influenza, split virus, trivalent, preservative 08/19/2006 completed Klaudia barnhart [facility] 09/19/2023 14:52:57 Influenza, split virus, trivalent, preservative 08/29/2013 [facility] 14:52:57 Influenza, split virus, trivalent, preservative 08/31/2008 [facility] 14:52:57 Influenza, split virus, trivalent, PF 07/30/2012 [facility] 14:52:57 Influenza, split virus, trivalent, PF 08/15/2010 [facility] 14:52:57 Td (adult), 5 Lf tetanus toxoid, preservative free, adsorbed 12/27/2017 completed Klaudia barnhart [facility] 09/19/2023 14:52:57 Influenza, split virus, quadrivalent, PF 08/17/2015 [facility] 14:52:57 Past Encounters Encounter ID Performer Location Encounter Start Date Encounter Closed Date Diagnosis/Indication Diagnosis SNOMED-CT Code Diagnosis ICD10 Code [id number] EUSEBIO ALEXANDER[facility] [address] [place] [address] 01/06/2023 13:44:50 01/09/2023 10:23:18 History of urinary tract infection 0256848666 107 Z87.440 [id number] Sanjay Knapp MD [facility] [address] [facility],[address] [place] [address] 02/11/2023 15:06:18 02/14/2023 09:08:35 Dysuria 84680425 R30.0 Increased frequency of urination 338991711 R35.0 Neoplasm o f uncertain behavior of urinary bladder 00521649 D41.4 [id number] MD YARELI [facility] [address] [place] [address] 03/07/2023 11:50:40 03/14/2023 03:53:19 Malignant neoplasm of urinary bladder 889983954 C67.9 Health Concerns Section Related Observation LastModified by Organization Detai ls LastModified Time None Recorded Concern Status LastModified by Organization Details LastModified Time None Recorded Advance Directives Directive None Recorded Payers Encounter Date Sequence Insurance Name Policy Number Policy Gomez Covered Member ID Gomez Member ID Guarantor Name 01/06/2023 2 [place] [employer] Mary Pa [id number] Mary Pa 01/06/2023 1 [place] [id number] Mary Pa [id number] Mary Pa 02/11/2023 1 [place] [id number] Mary Pa [id number] Mary Pa 03/07/2023 1 [place] [id number] Mary Pa [id number] Mary Pa Notes Date Note Type Note Provider Name and Address Organization Details Recorded Time 01/06/2023 text/html HPI Notes: Marko Pa is a 87 yo F referred to urology for UTIs. She had gastroenteritis with diarrhea prior to urinary symptoms starting. She reports frequent episodic dysuria which has improved with courses antibiotics (cipro). Cultures have been persistently negative. She was recently started on vaginal estrogen and given pyridium by her PCP. She finished her antibiotics a week ago. She has held her pyridium the last two days, and dysuria has returned. Not bothered by frequency - every 2-3 hours during the day. Denies gross hematuria, flank pain, fever. No h/o kidney stones. Has not had a UTI in decades. UCX Hx: 12/23/22: negative 12/16/22: <50k mixed beau 12/09/22: <50k mixed beau UA today: unable to leave sample PVR: 0ml Surg hx: appendix KALEY BERGER PA-C [address] [place] [address],[address], [place], [address], [facility] 01/06/2023 14:52:39 02/11/2023 text/html HPI Notes: seein g for recurring UTis' with dysuria, john later in the day. no gross heme. UA sm RBC, tr leuks and PVR 0ml today. Sanjay Knapp MD [address] [place] [address],[address], [place], [address], [facility] 02/11/2023 15:58:46 03/07/2023 text/html HPI Notes: here for catheter removal after TURBT last week. 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 urine clear today. Sanjay Knapp MD [address] [place] [address],[address], [place], [address], [facility] 03/07/2023 12:36:58 OBGyn Episode No OBEpisode recorded.
[2024-07-02 21:59] LABS: Slide Review Reflex No
[2024-07-02 22:08] LABS: Albumin* 4.2 g/dL (3.3-5.0); Chloride* 99 mmol/L (96-114); Potassium* 3.6 mmol/L (3.6-5.1); Sodium* 137 mmol/L (135-149)
[2024-07-02 22:11] LABS: Alanine Aminotransferase* 18 U/L (4-35); Alkaline Phosphatase* 80 U/L (40-150); Anion Gap 10 mEq/L (7-15); Aspartate Amino Transferase* 24 U/L (12-35); Bilirubin Direct* 0.3 mg/dL (0.0-0.5); Bilirubin Total* 0.5 mg/dL (0.1-1.5); Blood Urea Nitrogen* 23 mg/dL (7-30); Calcium* 9.1 mg/dL (8.4-10.6); Carbon Dioxide* 28 mmol/L (20-32); Creatinine* 0.6 mg/dL (0.5-1.5); Est. Creatinine Clearance* 31.19; Estimated Glomerular Filt Rate 86 ml/min; Glucose* 153 mg/dL (60-115); Total Protein* 7.2 g/dL (6.0-8.3)
== END 2024-07-02 23:00 | disposition home or self-care (01) ==
PROVIDERS: Emergency Provider Family Medicine; PCP Physician Assistant
DX: R10.10 Upper abdominal pain, unspecified (principal)
CPT/HCPCS: 36415; 80048; 80076; 85025; 99283; 99284; A9270

== ENCOUNTER 2024-07-24 09:05 | Emergency (ER) | payer MEDICARE, BC, SELFPAY ==
[2024-07-24 09:14] VITALS: BP 150/80; PULSE 82; RESP 16; TEMP 36.9; O2SAT 98; BMI 20.3
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
--- OUTSIDE RECORDS SUMMARY | 2024-07-24 10:21 | XMS_ITS | Encounter Summary ---
[facility] Organization [facility] Address [address] [place] [id number] Care Team Providers Care Fishing Reel Assembler Name Role Phone Elsewhere, Pcp Primary Care Provider Unavailabl e Reason for Visit * Reason Onset Date Comments Med Refill 07/23/2024 Urostomy Supplie s Encounter Details Date Type Department Care Team (Latest Contact Info) Description 07/23/2024 Clinical Communication Department of Urology in [place], [place] [address] [place] [phone] Chavez Ferrer M.D. [address] [place] [phone] Med Refill (Urostomy Supplies) Social History Tobacco Use Types Packs/Day Years Used Date Smoking Tobacco: Never Passive Smoke Exposure: Never Smokeless Tobacco: Never Alcohol Use Standard Drinks/Week Comments Not Currently 0 (1 standard drink = 0.6 oz pur e alcohol) Humiliation, Afraid, Rape, and Kick questionnair e Answer Date Recorded Within the last year, have y ou been afraid of your partner or ex-partner? No 03/13/2023 Within the last year, have y ou been humiliated or emotionally abused in other ways by your partner or ex-partner? No Within the last year, have y ou been kicked, hit, slapped, or otherwise physically hurt by your partner or ex-partner? No 03/13/2023 Within the last year, have y ou been raped or forced to have any kind of sexual activity by your partner or ex-partner? No 03/13/2023 Social Connection and Isolat ion Panel [NHANES] Answer Date Recorded In a typical week, how many times do you talk on the phone with family, friends, or neighbors? More than three times a week 03/13/2023 How often do you get togethe r with friends or relatives? Three times a week 03/13/2023 How often do you attend chur or holiness services? More than 4 times per year 03/13/2023 Do you belong to any clubs o r organizations such as yarsani groups, unions, fraternal or athletic groups, or school groups? Yes 03/13/2023 How often do you attend meet ings of the clubs or organizations you belong to? More than 4 times per year 03/13/2023 Are you , , di vorced, , never , or living with a partner? 03/13/2023 AUDIT-C Answer Date Recorded Q1: How often do you have a drink containing alc ohol? Never 03/13/2023 Average Number of Drinks Not on file 023 Frequency of Binge Drinking Not on file 02/18 Overall Financial Resource Strain (CARDIA) Answe r Date Recorded How hard is it for you to pa y for the very basics like food, housing, medical care, and heating? Not hard at all 03/13/2023 [facility] - Occupational Stress Questionnaire Answer Date Recorded Do you feel stress - tense, restless, nervous, or anxious, or unable to sleep at night because your mind is troubled all the time - these days? Only a little 03/13/2023 Exercise Vital Sign Answer Date Recorde d On average, how many days pe r week do you engage in moderate to strenuous exercise (like a brisk walk)? 2 days 03/13/2023 On average, how many minutes do you engage in exercise at this level? 40 min 03/13/2023 Hunger Vital Sign Answer Date Recorded Within the past 12 months, y ou worried that your food would run out before you got the money to buy more. Never true 03/13/20 23 Within the past 12 months, t he food you bought just didn't last and you didn't have money to get more. Never true 03/13/2023 PRAPARE - Transportation Answer Date Re corded In the past 12 months, has l ack of transportation kept you from medical appointments or from getting medications? No 02/18 In the past 12 months, has l ack of transportation kept you from meetings, work, or from getting things needed for daily living? No 03/13/2023 Housing Stability Vital Sign Answer Shay e Recorded In the last 12 months, was t here a time when you were not able to pay the mortgage or rent on time? No 03/13/2023 In the last 12 months, how many places have you lived? 1 03/13/2023 In the last 12 months, was t here a time when you did not have a steady place to sleep or slept in a prison (including now)? No 03/13/2023 Nutrition Answer Date Recorded On average, how many serving s of fruits and vegetables do you eat per day (serving size is equal to 1 cup or approximately the size of a tennis ball)? 2-3 03/13/2023 Dental Answer Date Recorded Dental: Regular Dentist Yes 03/13/20 Employment Answer Date Recorded Employment status Retired 03/13/2023 Education Answer Date Recorded What is the highest level of school you have completed or the highest degree you have received? Bachelor's degree (e.g., BA, AB, BS) 03/13/2023 Sex and Gender Information Value Date Recorded Sex Assigned at Female 03/13/2023 3:04 PM CDT Gender Identity Female 03/13/2023 3:04 PM CDT Sexual Orientation Straight 03/13/2023 3: 04 PM CDT documented as of this encounter Miscellaneous Notes * Telephone Encounter - Noemi Ayala RJhonathanN. - 07/23/2024 2:05 PM CDT New ostomy prescription and DME justification were faxed to the [facility]. * Telephone Encounter - Noemi Ayala R.N. - 07/23/2024 11:45 AM CDT SUBJECTIVE CHIEF COMPLAINT / REASON FOR CALL Med Refill (Urostomy Supplies) Information Discussed Discussed need for updated Ostomy DME prescription. Prescription will be faxed to the [facility] once signed by a provider. Discussed tips for applying wafers as patient also expressed having difficulties with applying her wafers. Also informed her that her prescription allows her to order 20/month. PLAN Disposition/Recommendation: self-care is appropriate at this time, patient encouraged to call back with questions Information/Education: patient/caller able to teach back Caller agreeable to plan of care: yes The following references were used: nursing clinical judgement documented in this encounter Plan of Treatment Upcoming Encounters Date Type Department Care Team (Latest Contact Info) Description 08/02/2024 1:00 PM CDT Clinical Communication Virtual Review in [address] [phone] 08/04/2024 9:30 AM CDT Appointment Department of Laboratory Medicine and Pathology, [facility] in [address] [phone] Gaurang Seth, P.A.-C. [address] [place] [phone] 08/04/2024 10:15 AM CDT Lab Department of Urology in [address] [phone] Gaurang Seth, P.A.-C. [address] [place] [phone] 08/04/2024 11:30 AM CDT Appointment Department of Radiology, [facility], in [address] [phone] Gaurang Seth, P.A.-C. [address] [place] [phone] 08/04/2024 3:30 PM CDT Office Visit Department of Urology in [place], [place] [address] [place] [phone] Chavez Ferrer M.D. 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
--- OUTSIDE RECORDS SUMMARY | 2024-07-24 10:21 | XMS_ITS | Referral Summary ---
Author Organization [facility] Address [address] [place] [address] Care Team Providers Care Sales Operations Assistant Name Role Phone Elsewhere, Pcp Primary Care Provider Unavailabl e Source Comments Patient records contain information from all sites at [facility]. For routine questions regarding patient records, call [phone] during business hours, M-F 8:00 AM - 5:00 PM Central Time. Record requests for emergency care only can be directed to [phone] at any time.[facility] Encounters Date Type Department Care Team Description 07/23/2024 Clinical Communication Department of Urology in [place], [place] [address] [place] [phone] Chavez Ferrer M.D. Med Refill (Urostomy Supplies) 07/06/2024 Clinical Communication Department of Urology in [address] [phone] Chavez Ferrer M.D. Scehdule 08/04 bladder cancer 07/05/2024 4:00 PM CDT Office Visit Department of Oncology in [place], [place] [address] [place] [phone] Caitlin Rajput M.D. Estrellita Turner, AIR PRESS OPERATOR, C.N.P. Malignant Neoplasm Of Endometrium (HCC) (Primary Dx); Malignant Neoplasm Of Bladder (HCC) 07/02/2024 1:15 PM CDT Clinical Communication Virtual Review in [place], [place] 200 [place] [phone] from Last 3 Months Allergies No known active allergies Medications Medication Sig Dispensed Refills Start Date End Date Status lovastatin (MEVACOR) 10 mg tablet Take 5 mg by mouth daily with dinner. (Takes 1/2 tab) 01/29/2023 Active acetaminophen (TYLENOL) 500 mg tablet Take 1 tablet (500 mg total) by mouth every 6 (six) hours as needed for pain. 03/25/2023 Active gabapentin (NEURONTIN) 100 mg capsule Take 200 mg by mouth 3 (three) times a day. 04/24/2023 Active zinc gluconate 30 mg tablet Take 30 mg by mouth 2 (two) times a week. Active CALCIUM CITRATE-VITAMIN D3 ORAL Take 1 tablet by mouth daily. 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 More than 4 times per year 03/13/2023 Do you belong to any clubs o r organizations such as alevism groups, unions, fraternal or athletic groups, or [...] and heating? Not hard at all 03/13/2023 [facility] ion[facility] - Occupational Stress Questionnaire Answer Date [...] the money to buy more. Never true 05/25/20 23 Within the past 12 months, t [...] place to sleep or slept in a nursing home (including now)? No 03/13/2023 Nutrition Answer Date [...] Orientation Straight 03/13/2023 3: 04 PM CDT Last Filed Vital Signs Vital Sign Reading Time Taken Comments Blood Pressure 158/79 07/05/2024 3:38 PM CDT Pulse 75 07/05/2024 3:38 PM CDT Temperature 36 ??C (96.8 ??F) 07/05/2024 3:38 PM CDT Respiratory Rate 16 07/05/2024 3:38 PM CDT Oxygen Saturation 100% 07/05/2024 3:38 PM CDT Inhaled Oxygen Concentration - - Weight 49.8 kg (109 lb 12.6 oz) 07/05/2024 3:38 PM CDT Height 155.4 cm (5' 1.18) 07/05/2024 3:38 PM CD T Body Mass Index 20.62 07/05/2024 3:38 PM CDT Plan of Treatment Upcoming Encounters Date Type Department Care Team (Latest Contact Info) Description 08/02/2024 1:00 PM CDT Clinical Communication Virtual Review in [place], [place] 200 [place] [address] 08/04/2024 9:30 AM CDT Appointment Department of Laboratory Medicine and Pathology, [facility] in [place], [place] [address] [place] [phone] Gaurang Seth P.A.-CJhonathan [address] [place] [phone] 08/04/2024 10:15 AM CDT Lab Department of Urology in [address] [phone] Gaurang Seth P.A.-C. [address] [place] [phone] 08/04/2024 11:30 AM CDT Appointment Department of Radiology, [facility] in [address] [phone] Gaurang Seth P.A.-CJhonathan [address] [place] [phone] 08/04/2024 3:30 PM CDT Office Visit Department of Urology in [address] [phone] Chavez Ferrer M.D. [address] [place] [phone] Medical Devices Implanted Type Area Application Processor Device Identifier Shelf Expiration Date Model / Serial / Lot Clp Hrzn Ti 24 Clp Casey - [id number] Implanted:Qt y: 2 on 03/20/2023 by Chavez Ferrer M.D. at [facility] Hardware e.g. pins/screws /rods N/A: [employer] [id number] / / Clp Hrzn Ti 6 Clp Lg Orng - [id number] Implanted:Qt y: 9 on 03/20/2023 by Chavez Ferrer M.D. at [facility] Hardware e.g. pins/screws /rods N/A: [employer] [id number] / / Stnt Uret Cls Tp Srg 7fx90 - [id number] Implanted:Qt y: 1 on 03/20/2023 by Chavez Ferrer M.D. at [facility] Ureteral Stent Ureter [facility] [id number] 01/28/2027 [id number] / / [id number] Description:2 ureter stents in package; implanted Care Teams Sales Operations Assistant Relationship Specialty Start Date End Date Elsewhere, Pcp PCP - General Internal Medicine 03/13/23
--- OUTSIDE RECORDS SUMMARY | 2024-07-24 10:21 | XMS_ITS ---
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 Past Plans No past plan information found. Radiation Treatments * Plan Last Treated On Elapsed Days Fractions Treated Prescribed Fraction Dose Prescribed Total Dose [id number] 05/16/2023 10 3 of 3 700 cGy 2,100 cGy [id number] 05/06/2023 0 1 of 3 700 cGy 2,100 cGy Reference Point Last Treated On Elapsed Days Session Dose Total Dose DPV HDR 05/16/2023 10 700 cGy 2,100 cGy DPV HDR 05/06/2023 0 700 cGy 700 cGy
--- OUTSIDE RECORDS SUMMARY | 2024-07-24 10:21 | XMS_ITS | Encounter Summary ---
Author Organization [facility] Address [address] [place] [address] Care Team Providers Care Continuous Absorption Process Operator Name Role Phone Elsewhere, Pcp Primary Care Provider Unavailabl e Reason for Referral * Outpatient (Routine) - Authorized Specialty Diagnoses / Procedures Referred By Contac t Referred To Contact Diagnoses Malignant Neoplasm Of Bladder (HCC) Procedures URO Stoma care Gaurang Seth P.A.-C. [address] [place] [phone] [facility] Referral ID Status Reason Start Date Expiration Date V isits Requested Visits Authorized [id number] Authorized 07/06/2024 07/06/2025 12 12 * Outpatient (Routine) - Authorized Specialty Diagnoses / Procedures Referred By Contpaul t Referred To Contact Urology Diagnoses Malignant Neoplasm Of Bladder (HCC) Gaurang Seth P.A.-C. [address] [place] [phone] Chavez Ferrer M.D. [address] [place] [phone] Referral ID Status Reason Start Date Expiration Date V isits Requested Visits Authorized [id number] Authorized 07/06/2024 01/05/2026 1 1 Scheduling Instructions 3:30 direct overbook * MRI/CAT/PET Scan (Routine) - Authorized Specialty Diagnoses / Procedures Referred By Fidel bell Referred To Contact Radiology Diagnoses Malignant Neoplasm Of Bladder (HCC) Procedures CT Urogram without and with IV Contrast Gaurang Seth P.A.-C. [address] [place] [phone] [facility] Referral ID Status Reason Start Date Expiration Date V isits Requested Visits Authorized [id number] Authorized 07/06/2024 07/06/2025 1 1 Reason for Visit * Reason Onset Date Comments [facility] 08/04 bladder cancer 07/06/2024 Encounter Details Date Type Department Care Team (Latest Contact Info) Description 07/06/2024 Clinical Communication Department of Urology in [place], [place] [address] [place] [phone] Chavez Ferrer M.D. [address] [place] [phone] [facility] 08/04 bladder cancer Social History Tobacco Use Types Packs/Day Years [...] often do you attend chur ch or muslim services? More than 4 times per year 03/13/2023 Do you belong to any clubs o r organizations such as anabaptist groups, unions, fraternal or athletic groups, or [...] and heating? Not hard at all 03/13/2023 [facility] - Occupational Stress [...] place to sleep or slept in a fpc (including now)? No 03/13/2023 Nutrition Answer Date [...] PM CDT documented as of this encounter Plan of Treatment Upcoming Encounters Date Type Department Care Team (Latest Contact Info) Description 08/02/2024 1:00 PM CDT Clinical Communication Virtual Review in [place], [place] 200 [place] [address] 08/04/2024 9:30 AM CDT Appointment Department of Laboratory Medicine and Pathology, [facility], in [place], [place] [address] [place] [phone] Gaurang Seth P.A.-C. [address] [place] [phone] 08/04/2024 10:15 AM CDT Lab Department of Urology in [place], [place] [address] [place] [address] Gaurang Seth PMaria E.-Siva [address] [place] [phone] 08/04/2024 11:30 AM CDT Appointment Department of Radiology, [facility], in [place], [place] [address] [place] [phone] Gaurang Seth P.A.-Siva [address] [place] [phone] 08/04/2024 3:30 PM CDT Office Visit Department of Urology in [place], [place] [address] [place] [address] Chavez Ferrer M.D. [address] [place] [phone] Scheduled Orders Name Type Priority Associated Diagnoses Order Schedule CT Urogram without and with IV Contrast Imaging RAD - Routine (most inpatients and all outpatients) Malignant Neoplasm Of Bladder (HCC) Expected: 08/05/2024, Expires: 10/05/2025 URO Stoma care Procedure Routine Malignant Neoplasm Of Bladder (HCC) Expected: 08/04/2024, Expires: 10/05/2025 Basic Metabolic Panel Lab Routine Malignant Neoplasm Of Bladder (HCC) Expected: 08/04/2024, Expires: 10/05/2025 CBC without Differential Lab Routine Malignant Neoplasm Of Bladder (HCC) Expected: 08/04/2024, Expires: 10/05/2025 Cytology Non-SENIOR INSIGHT MANAGER INTERNATIONAL (Scheduled) Pathology and Cytology Routine Malignant Neoplasm Of Bladder (HCC) Expected: 08/04/2024, Expires: 10/05/2025 Scheduled Referrals Name Type Priority Associated Diagnoses Orde r Schedule Urology office visit (clinic) General Outpatient Referral Routine Malignant Neoplasm Of Bladder (HCC) Expected: 08/04/2024, Expires: 10/05/2025 documented as of this encounter Visit Diagnoses Diagnosis Malignant Neoplasm Of Bladder (HCC)- Primary Malignant Neoplasm Of Endometrium (HCC) documented in this encounter Care Teams Continuous Absorption Process Operator Relationship Specialty Start Date End Date Elsewhere, Pcp PCP - General Internal Medicine 03/13/23 documented as of this encounter
--- OUTSIDE RECORDS SUMMARY | 2024-07-24 10:21 | XMS_ITS | Clinical Summary ---
Author Organization [facility] Address [address] [place] [address] Care Team Providers Care Service Desk Manager Name Role Phone Elsewhere, Pcp Primary Care Provider Unavailabl e Source Comments Patient records contain information from all sites at [facility]. For routine questions regarding patient records, call [phone] during business hours, M-F 8:00 AM - 5:00 PM Central Time. Record requests for emergency care only can be directed to [phone] at any time.[facility] Allergies No known active allergies Medications Medication [...] 03/14/2023 Osteopenia 08/11/2009 03/14/2023 Polyneuropathy 07/03/2009 03/14/2023 Encounters Date Type Department Care Team Description 07/23/2024 Clinical Communication Department of Urology in [address] [phone] Chavez Ferrer M.D. Med Refill (Urostomy Supplies) 07/06/2024 Clinical Communication Department of Urology in [address] [phone] Chavez Ferrer M.D. Scehdule 08/04 bladder cancer 07/05/2024 4:00 PM CDT Office Visit Department of Oncology in [address] [phone] Caitlin Rajput M.D. Estrellita Turner, RESIDENT ATHLETIC TRAINER, C.N.P. Malignant Neoplasm Of Endometrium (HCC) (Primary Dx); Malignant Neoplasm Of Bladder (HCC) 07/02/2024 1:15 PM CDT Clinical Communication Virtual Review in [address] [phone] from Last 3 Months Family History Medical History Relation Name Comments Depression Mother Mother Relation Name Status Comments Mother Mother Social History Tobacco Use Types Packs/Day [...] often do you attend chur ch or restoration services? More than 4 times per year 03/13/2023 Do you belong to any clubs o r organizations such as voodoo groups, unions, fraternal or athletic groups, or [...] and heating? Not hard at all 03/13/2023 [facility] Occupat ionme Health - Occupational Stress Questionnaire Answer Date [...] money to buy more. Never true 03/13/20 Within the past 12 months, t he [...] place to sleep or slept in a longterm (including now)? No 03/13/2023 Nutrition Answer Date [...] PM CDT Clinical Communication Virtual Review in [place], [place] 200 [place] [address] 08/04/2024 9:30 AM CDT Appointment Department of Laboratory Medicine and Pathology, [facility] in [address] [phone] Gaurang Seth P.A.-C. [address] [place] [phone] 08/04/2024 10:15 AM CDT Lab Department of Urology in [address] [phone] Gaurang Seth P.A.-CJhonathan [address] [place] [phone] 08/04/2024 11:30 AM CDT Appointment Department of Radiology, [facility], in [address] [address] Gaurang Seth P.A.-CJhonathan [address] [place] [phone] 08/04/2024 3:30 PM CDT Office Visit Department of Urology in [address] [phone] Chavez Ferrer M.D. [address] [place] [phone] Health Maintenance Due Date Last Done Comments Depression Screening (Annual PHQ-2) 10/20/2023 COVID-19 Vaccine (2023- season) 2024 04/24/2023, 07/12/2022, 02/05/2022, Additional history exists Influenza Vaccine (#1) 2024 3, 08/07/2022, 07/20/2021, Additional history exists DTaP,Tdap,and Td Vaccines (4 - Td or Tdap) 12/28/2027 12/27/2017, 12/26/2017, 04/19/2011 Pneumococcal vaccine (65+ years) Completed 01/24/2015, 09/24/2013 Zoster Vaccines Completed 10/08/2018, 07/20, 10/19/2012 Fall Risk Screen (Annual) Completed 11/28/2023 RSV vaccine - (32-36 weeks) or 60+ years Completed 12/26/2023 HPV Vaccines Aged Out No longer eligi ble based on patient's age to complete this topic Medical Devices Implanted Type Area Sex Therapist Device Identifier Shelf Expiration Date Model / Serial / Lot Clp Hrzn Ti 24 Clp Casey - [id number] Implanted:Qt y: 2 on 03/20/2023 by Chavez Ferrer M.D. at [facility] Hardware e.g. pins/screws /rods N/A: [employer] [id number] / / Clp Hrzn Ti 6 Clp Lg Orng - [id number] Implanted:Qt y: 9 on 03/20/2023 by Chavez Ferrer M.D. at [facility] Hardware e.g. pins/screws /rods N/A: [employer] [id number] / / Stnt Uret Cls Tp Srg 7fx90 - [id number] Implanted:Qt y: 1 on 03/20/2023 by Chavez Ferrer M.D. at [facility] Ureteral Stent Ureter [facility] [id number] 01/28/2027 [id number] / / [id number] Description:2 ureter stents in package; implanted Care Teams Service Desk Manager Relationship Specialty Start Date End Date Elsewhere, Pcp PCP - General Internal Medicine 03/13/23
--- OUTSIDE RECORDS SUMMARY | 2024-07-24 10:21 | XMS_ITS | Encounter Summary ---
Author Organization [facility] Address [address] [place] [address] Care Team Providers Care Special Education Administrator Name Role Phone Elsewhere, Pcp Primary Care Provider Unavailabl e Encounter Details Date Type Department Care Team (Latest Contact Info) Description 07/02/2024 1:15 PM CDT Clinical Communication Virtual Review in [place], [place] 200 [place] [address] Social History Tobacco Use Types Packs/Day Years [...] often do you attend chur ch or yazidi services? More than 4 times per year [...] and heating? Not hard at all 03/13/2023 [facility] Occupat ional [facility] - Occupational Stress Questionnaire Answer Date Recorded [...] place to sleep or slept in a senior living (including now)? No 03/13/2023 Nutrition Answer Date [...] PM CDT Clinical Communication Virtual Review in [place], [place] 200 [place] [address] 08/04/2024 9:30 AM CDT Appointment Department of Laboratory Medicine and Pathology, [facility], in [place], [place] [address] [place] [phone] Gaurang Seth, P.A.-C. [address] [place] [phone] 08/04/2024 10:15 AM CDT Lab Department of Urology in [place], [place] [address] [place] [phone] Gaurang Seth, P.A.-C. [address] [place] [address] 08/04/2024 11:30 AM CDT Appointment Department of Radiology, [facility], in [place], [place] [address] [place] [address] Gaurang Seth P.A.-C. [address] [place] [phone] 08/04/2024 3:30 PM CDT Office Visit Department of Urology in [place], [place] [address] [place] [phone] Chavez Ferrer M.D. [address] [place] [phone] documented as of this encounter Visit Diagnoses Not on filedocumented in this encounter Care Teams Special Education Administrator Relationship Specialty Start Date End Date Elsewhere, Pcp PCP - General Internal Medicine 03/13/23 documented as of this encounter
--- OUTSIDE RECORDS SUMMARY | 2024-07-24 10:21 | XMS_ITS | Clinical Summary ---
Author Organization [facility] Address [place], [place] [address] Care Team Providers Care Vest Finisher Name Role Phone Gisel Mullen Primary Care Provider [phone] Allergies No known active allergies Medications Medication [...] mouth once daily with a meal. Active Graduated Compression StockingsIndication s:Venous insufficiency For personal use. Length: calf Strength: 20-30 mmHg size medium 2 Packet 3 Active lovastatin (MEVACOR) 10 mg tabletIndications:M ixed hyperlipidemia TAKE ONE-HALF TABLET (5 MG) BY MOUTH AT BEDTIME 45 Tablet 2 4 Active celecoxib (CELEBREX) 100 mg capsuleIndications: Chronic pain of left knee Take 1 Capsule (100 mg) by mouth 2 times daily if needed for Pain. 60 Capsule 1 4 Active gabapentin (NEURONTIN) 100 mg capsuleIndications: Neuropathic pain TAKE TWO CAPSULES (200 MG TOTAL) BY MOUTH THREE TIMES A DAY 540 Capsule 3 4 Active gabapentin (NEURONTIN) 100 mg capsuleIndications: Neuropathic pain Take 2 Capsules (200 mg) by mouth three times daily. 540 Capsule 3 3 07/19/20 24 Discontinued meclizine (ANTIVERT) 12.5 mg tabletIndications:V ertigo Take 1 Tablet (12.5 mg) by mouth 2 times daily if needed for Vertigo. 30 Tablet 2 3 07/01/20 24 Discontinued(*Me d complete/Regimen complete/Level of care change) Active Problems Problem Noted [...] Encounters Date Type Department Care Team Description 07/15/2024 Refill [facility] [address] [place] [address] Gisel Mullen PA Refill Request (Gabapentin) 07/01/2024 3:15 PM CDT Ancillary Procedure [facility] [address] [place] [address] 07/01/2024 2:10 PM CDT Office Visit [address] [address] Gisel Mullen PA Leg Pain/problem (Left leg pain behind her knee-seems better today but for the last two weeks could hardly walk on it-had to pull on her railing to get up or down the stairs-had to think about how to walk when she got out of bed) 07/01/2024 Travel 06/23/[address] [place] [address] Gisel Mullen PA Home Care 06/22/2024 Telephone [facility] [address] [place] [address] Gisel Mullen PA Questions 06/14/2024 Nurse Triage [facility] [address] [place] [address] Gisel Mullen PA Leg Pain/problem (Left upper leg) 05/06/2024 Telephone [facility] [address] [place] [address] Gisel Mullen PA Medication Management (Questions for provider) 05/03/2024 Refill [facility] [address] [place] [address] Gisel Mullen PA Refill Request (Lovastatin) from Last 3 Months Immunizations Name Administration Dates Next Due COVID-19 VACCINE SPIKEVAX (M ODERNA 50MCG/0.5ML) 12YO+ PFS 08/08/2023 COVID-19 vaccine (Moderna 50mcg/0.5mL) 12YO+ BIVALENT PF, MDV 07/12/2022 COVID-19 vaccine (Pfizer-Bio NTech 30mcg/0.3mL) 12YO+ BIVALENT PF, MDV 04/24/2023 [...] vaccine for adults or (1 - 1-dose 75+ series) 02/28/2011 BMI (ht and wt on same day) [...] For Patients: ??As a result of the 21st Century Cures Act, medical imaging exams and procedure [...] For Patients: As a result of the Cures Act, medical imagingexams and procedure reports [...] Preferences, Provider to review later Care Teams Vest Finisher Relationship Specialty Start Date End Date Gisel Mullen PA [address] [place] [address] PCP - General Physician Panelboard Tank Pumper 04/26/23
--- OUTSIDE RECORDS SUMMARY | 2024-07-24 10:21 | XMS_ITS | Encounter Summary ---
Author Organization [facility] Address [address] [place] [address] Care Team Providers Care Fork Assembler Name Role Phone Elsewhere, Pcp Primary Care Provider Unavailabl e Reason for Referral * Outpatient (Routine) - Authorized Specialty Diagnoses / Procedures Referred By Contac t Referred To Contact Oncology Estrellita Turner APRN, C.N.P. [address] [place] [phone] [facility] Referral ID Status Reason Start Date Expiration Date V isits Requested Visits Authorized [id number] Authorized 07/05/2024 01/04/2026 1 1 * MRI/CAT/PET Scan (Routine) - Authorized Specialty Diagnoses / Procedures Referred By Contac t Referred To Contact Radiology Diagnoses Malignant Neoplasm Of Endometrium (HCC) Malignant Neoplasm Of Bladder (HCC) Procedures CT Chest with IV Contrast Estrellita Turner APRN, C.N.P. [address] [place] [phone] [facility] Referral ID Status Reason Start Date Expiration Date V isits Requested Visits Authorized [id number] Authorized 07/05/2024 07/05/2025 1 1 Reason for Visit * Outpatient (Routine) - Closed Specialty Diagnoses / Procedures Referred By Contac t Referred To Contact Oncology Estrellita Turner APRN, C.N.P. [address] [place] [address] [facility] Referral ID Status Reason Start Date Expiration Date Visits Re quested Visits Authorized [id number] Closed 12/03/2023 06/03/2025 1 1 Encounter Details Date Type Department Care Team (Late st Contact Info) Description 07/05/2024 4:00 PM CDT Office Visit Department of Oncology in [place], [place] [address] [place] [phone] Caitlin Rajput M.D. [address] [place] [phone] Estrellita Turner APRN, C.N.P. [address] [place] [phone] Malignant Neoplasm Of Endometrium (HCC) (Primary Dx); Malignant Neoplasm Of Bladder (HCC) Social History Tobacco Use Types Packs/Day Years [...] often do you attend chur ch or taoist services? More than 4 times per year 03/13/2023 Do you belong to any clubs o r organizations such as denominational groups, unions, fraternal or athletic groups, or [...] and heating? Not hard at all 03/13/2023 [facility] - Occupational Stress [...] place to sleep or slept in a custodial (including now)? No 03/13/2023 Nutrition Answer Date [...] PM CDT documented as of this encounter Last Filed Vital Signs Vital Sign Reading [...] Mass Index 20.62 07/05/2024 3:38 PM CDT documented in this encounter Progress Notes * Estrellita Turner APRN, C.N.P. - 07/05/2024 4:00 PM CDT SUBJECTIVE CHIEF COMPLAINT/REASON FOR VISIT Ms. Pa is a 89 y.o. 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 Caitlin Rajput HISTORY OF PRESENT ILLNESS Ms. Pa is a very pleasant 89 y.o. woman with the following oncologic history: Oncology History Malignant Neoplasm Of Endometrium (HCC) 03/10/[address] Urogram: A 4.2 cm cystic lesion with probable enhancing component superiorly in the uterine body (series 7 image 88, series 14 image 84), indeterminant for uterine fibroid with cystic degeneration versus endometrial carcinoma associated with hydrometra. Additional smaller presumed fibroid with peripheral calcification in the posterior uterine fundus (series 3 image 88). A 1.2 cm hypoenhancing lesion in the uterine cervix, probably a nabothian cyst but indeterminant (series 7 image 99) 03/20/2023 Surgery and Procedures Cystectomy, ileal conduit, lymphadenectomy, pelvic exenteration, transverse abdominis plane block. Vaginal hysterectomy with bilateral salpingo-oophorectomy. 03/20/2023 Biopsy/Pathology Stage IA clear cell carcinoma (2022 stage IIC) Measuring 4.2 x 3.3 x 0.8 cm with myometrial invasion present, no cervical stromal involvement, butlymphatic and vascular invasion present. Twenty pelvic lymph nodes were negative. 04/29/2023 Other Recommendation against chemotherapy. 05/06/2023 - 05/16/2023 Radiation Therapy 2100 cGy brachytherapy in 3 fractions INTERVAL HISTORY: Ms. Pa presents today for a seven-month follow-up to her clear cell carcinoma of the endometrium, now 1 year and 3 months status post surgery and 1 year and 2 months status post brachytherapy. Issues and no vaginal bleeding. She is eating well and sleeping well at night. She has had 2 episodes where the pain is so severe that she ends up vomiting, and this happened twice inthe last 6 weeks, 3 weeks apart. REVIEW OF SYSTEMS Pertinent items are noted in HPI; all other review of systems were negative. OBJECTIVE VITAL SIGNS BP Readings from Last 1 Encounters: 12/03/23 (!) 163/94 Pulse Readings from Last 1 Encounters: 12/03/23 67 Temp Readings from Last 1 Encounters: 12/03/23 (!) 35.8 ??C (Tympanic) No data recorded PHYSICAL EXAMINATION General: Alert and oriented. In no acute distress. Able to ambulate on and off the exam table without difficulty. Lymph: No palpable cervical, supraclavicular, axillary, and inguinal lymphadenopathy. Heart: Regular rate and rhythm. No peripheral edema. Lungs: Clear to auscultation bilaterally. Abdomen: Soft, non-tender, non-distended. Extremities: No pitting edema. No tenderness or erythema. Mental: Mood and affect appropriate for situation. 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 External genitalia with red areas on labia minora with some exudate on labia majora that is yellowish in color. Speculum inserted, vault and cuff visualized and without nodularity or abnormality. Bimanual exam reveals no adnexal masses or nodularity. Rectal: No vaginal/rectal septal nodularity or adnexal nodularity. DIAGNOSTICS I reviewed the pertinent laboratory and diagnostic data. ASSESSMENT / PLAN #1 Malignant Neoplasm of Endometrium Ms. Pa presents today for a six-month follow-up to her stage I A clear cell carcinoma, 2022 stage IIC, of the endometrium, now 1 year and 3 months status post surgery, and 1 year and 2 months status post brachytherapy. Exam is negative, but due to the fact that she has abdominal and pelvic pain that is significant every 1-2 weeks, and has since surgery, I will order a CT of the chest, abdomen and pelvis to check for any concerning findings. I will schedule this for 1st available and call her with the results. If the results are negative, plan would be to see her back in 6 months for a repeat exam. I have placed these orders as well. 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 I will have her send Urology a portal message with inquiry about a follow-up appointment, and I have sent a message to Gaurang Seth P.A.-C., who saw her last in November, to inquire about a follow-up appointment. ECOG score of 1 PATIENT EDUCATION Ready to learn, no apparent learning barriers were identified; learning preferences include listening. Explained diagnosis and treatment plan; patient expressed understanding of the content. documented in this encounter Plan of Treatment Upcoming Encounters Date Type Department Care Team (Latest Contact Info) Description 08/02/2024 1:00 PM CDT Clinical Communication Virtual Review in [place], [place] 200 [place] [address] 08/04/2024 9:30 AM CDT Appointment Department of Laboratory Medicine and Pathology, [facility] in [address] [phone] Gaurang Seth, P.A.-C. [address] [place] [phone] 08/04/2024 10:15 AM CDT Lab Department of Urology in [address] [phone] Gaurang Seth, P.A.-C. [address] [place] [phone] 08/04/2024 11:30 AM CDT Appointment Department of Radiology, [facility], in [address] [phone] Gaurang Seth, P.A.-C. [address] [place] [phone] 08/04/2024 3:30 PM CDT Office Visit Department of Urology in [address] [phone] Chavez Ferrer M.D. [address] [place] [phone] Scheduled Orders Name Type Priority Associated Diagnoses Orde r Schedule CT Chest with IV Contrast Imaging RAD - Routine (most inpatients and all outpatients) Malignant Neoplasm Of Endometrium (HCC) Malignant Neoplasm Of Bladder (HCC) Expected: 07/05/2024, Expires: 10/04/2025 Creatinine with Estimated GFR Lab Routine Malignant Neoplasm Of Endometrium (HCC) Malignant Neoplasm Of Bladder (HCC) Expected: 01/02/2025, Expires: 10/04/2025 Scheduled Referrals Name Type Priority Associated Diagnoses Orde r Schedule Oncology office visit (clinic) Outpatient Referral Routine Expected: 01/02/2025, Expires: 10/04/2025 documented as of this encounter Visit Diagnoses Diagnosis Malignant Neoplasm Of Endometrium (HCC)- Primary Malignant Neoplasm Of Bladder (HCC) documented in this encounter Care Teams Fork Assembler Relationship Specialty Start Date End Date Elsewhere, Pcp PCP - General Internal Medicine 03/13/23 documented as of this encounter
--- OUTSIDE RECORDS SUMMARY | 2024-07-24 10:21 | XMS_ITS ---
Author Organization [facility] Address [address] [place] [address] Care Team Providers Care Diesel Mechanic Name Role Phone Unavailable Unavailable Unavailable Surgery Details Not on file Complications Check Surgery Details section. Procedure Estimated Blood Loss Check Surgery Details section. Procedure Findings Check Surgery Details section. Procedure Specimens Taken Check Surgery Details section.
--- OUTSIDE RECORDS SUMMARY | 2024-07-24 10:22 | XMS_ITS | Data Portability ---
Author Organization [place] - [facility], [facility] Address [address] [place] [address] Assessment No assessment recorded. Plan of Treatment Reminders Order Date Submit Date Provider Last Modified By Organization Details Last Modified Time Details Appointments None recorded. Lab urinalysis , dipstick [address], [facility], [facility] [address], [place], [address], 3 15:25:13 Referral None recorded. Procedures bladder scan (PROC) [address], [facility], [facility] [address], [place], [address], 3 15:25:13 Surgeries None recorded. Imaging None recorded. Medication Orders Pyridium 100 mg tablet 2022 023 [facility], [address] [place], [address], 3 14:47:58 Patient TargetsNo targets recorded. Patient Instructions Encounter Date Encounter Id Patient Instructions Last Modified By Organization Details Last Modified Time 01/06/2023 [id number] UTI treatments a nd managements were discussed. [...] estrogenation. [email or web address] Not available 01/06/2023 14:50:06 02/11/2023 [id number] will set up for TUR bladder tumor. [email or web address] discussed [email or web address] Not available 02/11/2023 15:57:51 03/07/2023 [id number] catheter removed today. she is seeing DR Ferrer [facility] at [facility] on Friday for consultation about further management of her cancer. [email or web address] Not available 03/07/2023 12:36:40 Reason for Referral None Reported. Results Created Date Observation Date Name Description Value Unit Range Abnormal Flag Note LastModifiedBy Organization Detail LastModifiedTime 02/12/2002/11/2023 urina lysis , dipst ick Color-Status Yellow Not Available [address] [place], [place], [address], 02/11/2023 15:24:34 02/12/20 23 02/11/2023 urina lysis , dipst ick Clarity-Stat us Slight ly Cloudy Not Available [address] [place], [place], [address], 02/11/2023 15:24:34 02/12/20 23 02/11/2023 urina lysis , dipst ick Glucose-Stat us Negati ve Not Available [address], [place], [address], 02/11/2023 15:24:34 02/12/20 23 02/11/2023 urina lysis , dipst ick Bilirubin-St atus Negati ve Not Available [address], [place], [address], 02/11/2023 15:24:34 02/12/20 23 02/11/2023 urina lysis , dipst ick Ketones-Stat us Negati ve Not Available [address], [place], [address], 02/11/2023 15:24:34 02/12/20 23 02/11/2023 urina lysis , dipst ick Sp [place]-Stat us 1.015 Not Available [address], [place], [address], 02/11/2023 15:24:34 02/12/20 23 02/11/2023 urina lysis , dipst ick pH-Status 7.0 Not Available [address], [place], [address], 02/11/2023 15:24:34 02/12/20 23 02/11/2023 urina lysis , dipst ick Urobilinogen -Status 0.2 Not Available [address], [place], [address], 02/11/2023 15:24:34 02/12/20 23 02/11/2023 urina lysis , dipst ick Nitrates-Sta tus negati ve Not Available [address], [place], [address], 02/11/2023 15:24:34 02/12/20 23 02/11/2023 urina lysis , dipst ick Blood-Status Small Not Available [address], [place], [address], 02/11/2023 15:24:34 02/12/20 23 02/11/2023 urina lysis , dipst ick Leuko-Status Trace Not Available [place] [id number] [facility] [address], [place], [address], 02/11/2023 15:24:34 02/12/20 23 02/11/2023 urina lysis , dipst ick Specimen Type Voided Not Available [facility] [place] [address] [facility] [address], [place], [address], 02/11/2023 15:24:34 02/12/20 23 02/11/2023 bladd er scan (PROC ) Volume (in mL) 0ml Not Available [facility] [place] [address] [facility] [address], [place], [address], 02/11/2023 15:20:28 03/05/20 23 02/11/2023 bladd er scan (PROC ) No observ ation record ed. BARCODE Not Available 2022 13:16:47 Result Notes None recorded. Procedures Surgical History Date Name Laterality Status Provider Name and Address Organization Details Recorded Time 3 Castaneda Catheter Removal completed February [facility] 03/05/2023 16:30:19 3 Cystoscopy- female completed Sanjay Knapp MD [address] [facility],[address], [place], [address], [facility] 02/11/2023 15:57:10 3 Bladder Scan completed Michellefebruary [facility] 02/11/2023 15:20:09 3 Bladder Scan completed Radha Brunson [facility] 01/06/2023 14:13:41 Imaging Results Imaging Date [...] Updated DateTime 01/06/2023 157.48 cm 21.9 kg/m2 19151.08 g Radha Brunson [facility] 01/06/2023 14:13:03 Date Recorded Body height Body mass index (BMI) Body weight Provider Name and Address Organization Details Last Updated DateTime 02/11/2023 157.48 cm 21.9 kg/m2 38180.08 g Michelle Bull [facility] 02/11/2023 15:11:51 Date Recorded Body height Body mass index (BMI) Body weight Provider Name and Address Organization Details Last Updated DateTime 03/07/2023 157.48 cm 21.9 kg/m2 08581.08 g Carine Leija [facility] 03/07/2023 12:06:43 Social History Question Answer Notes LastModified by Organizat ion Details LastModified Time Tobacco Smoking Status Never Smoker Radha barnhart [facility] 01/06/2023 14:13:23 What Is Your Level Of Alcohol Consumption? None [email or web address] Information not available 02/11/2023 What Is Your Level Of Caffeine Consumption? None [email or web address] Information not available 02/11/2023 What Was The Date Of Your Most Recent Tobacco Screening? 02/11/2023 [email or web address] Information not available 02/11/2023 Do You Use Any Illicit Or Recreational Drugs? No [email or web address] Information not available 02/11/2023 Has Tobacco Cessation Counseling Been Provided? No [email or web address] Information not available 02/11/2023 Do You Or Have You Ever Used Any Other Forms Of Tobacco Or Nicotine? No [email or web address] Information not available 02/11/2023 Sex: Unknown Functional Status None recorded. Mental Status None recorded. Family History Relationship Description Onset Age of this Age Resolved Age Notes LastModified by Organization Details LastModified Time Father No current problems or disability [email or web address] Not available 01/06 14:13:18 Mother No current problems or disability [email or web address] Not available 01/06 14:13:18 Medical History Condition Response Diabetes N Sexually Transmitted Infection N Bleeding Disorder N High Blood Pressure N Kidney Stones N Cancer N Lung Disease N Depression N High Cholesterol Y GERD/Acid Reflux N Heart Disease N Gynecological History Statement/Question Response Sexually Active? N Obstetrics History GPAL:G 0 P 0 0 0 0 Immunizations Vaccine Type Date Status Provider Name and Address Organization Details Recorded Time COVID-19, mRNA, LNP-S, PF, 30 mcg/0.3 mL dose 11/25/2020 completed Michelle February [place], [facility] [place] [facility] 02/11/2023 15:12:45 COVID-19, mRNA, LNP-S, PF, 30 mcg/0.3 mL dose 12/16/2020 [facility] 15:12:45 COVID-19, mRNA, LNP-S, PF, 30 mcg/0.3 mL dose 02/05/2022 completed [facility], [facility] 02/11/2023 15:12:45 COVID-19, mRNA, LNP-S, PF, 30 mcg/0.3 mL dose 07/15/2021 completed Michelle February [place], [facility] [place] [facility] 02/11/2023 15:12:45 pneumococcal polysaccharide PPV23 09/24/2013 [facility] 02/11/2023 15:12:45 Pneumococcal conjugate PCV 13 01/24/2015 completed Michelle Bull null, [facility] [place] [facility] 02/11/2023 15:12:45 zoster recombinant 08/05/2018 completed Klaudia Keenan null, [facility] [place] [facility] 09/19/2023 14:52:57 zoster recombinant 10/08/2018 completed Klaudia Keenan null, [facility] [place] [facility] 09/19/2023 14:52:57 Influenza, high-dose, quadrivalent, PF 07/20/2021 completed Klaudia Keenan null, [facility] [place] [facility] 09/19/2023 14:52:57 Influenza, high-dose, quadrivalent, PF 08/07/2022 completed Klaudia Keenan null, [facility] [place] [facility] 09/19/2023 14:52:57 COVID-19, mRNA, LNP-S, bivalent, PF, 50 mcg/0.5 mL or 25mcg/0.25 mL dose 07/12/2022 [facility] 14:52:57 influenza, unspecified formulation 07/18/2009 completed Klaudia Keenan null, [facility] [place] [facility] 09/19/2023 14:52:57 Tdap 04/19/2011 [facility] 14:52:57 zoster live 10/19/2012 completed Klaudia Kenean null, [facility] [place] [facility] 09/19/2023 14:52:57 Influenza, high-dose, trivalent, PF 07/14/2017 completed Klaudia Keenan null, [facility] [place] [facility] 09/19/2023 14:52:57 Influenza, high-dose, trivalent, PF 07/20/2018 completed Klaudia Nailsre null, [facility] 09/19/2023 14:52:57 Influenza, high-dose, trivalent, PF 08/11/2014 completed Klaudia Nailsre null, [facility] 09/19/2023 14:52:57 Influenza, high-dose, trivalent, PF 08/15/2016 completed Klaudia Keenan null, [facility] 09/19/2023 14:52:57 Influenza, high-dose, trivalent, PF 08/17/2019 completed Klaudia barnhart [facility] 09/19/2023 14:52:57 Influenza, split virus, trivalent, preservative 08/19/2006 [facility] 14:52:57 Influenza, split virus, trivalent, preservative 08/29/2013 [facility] 14:52:57 Influenza, split virus, trivalent, preservative 08/31/2008 [facility] 14:52:57 Influenza, split virus, trivalent, PF 07/30/2012 [facility] 14:52:57 Influenza, split virus, trivalent, PF 08/15/2010 [facility] 14:52:57 Td (adult), 5 Lf tetanus toxoid, preservative free, adsorbed 12/27/2017 [facility] 14:52:57 Influenza, split virus, quadrivalent, PF 08/17/2015 [facility] 14:52:57 Past Encounters Encounter ID Performer Location Encounter Start Date Encounter Closed Date Diagnosis/Indication Diagnosis SNOMED-CT Code Diagnosis ICD10 Code [id number] EUSEBIO ALEXANDER_Joslyn [address] [facility] [place] [phone] 01/06/2023 13:44:50 01/09/2023 10:23:18 History of urinary tract infection 0853323421 107 Z87.440 [id number] MD YARELI Coyle_Danna [facility] [address] [facility],[address] [place] [address] 02/11/2023 15:06:18 02/14/2023 09:08:35 Dysuria 02851487 R30.0 Increased frequency of urination 912823300 R35.0 Neoplasm o f uncertain behavior of urinary bladder 70537124 D41.4 [id number] Sanjay Knapp MD [facility] [address] [place] [id number] 03/07/2023 11:50:40 03/14/2023 03:53:19 Malignant neoplasm of urinary bladder 091944668 C67.9 Health Concerns Section Related Observation LastModified by Organization Detai ls LastModified Time None Recorded Concern Status LastModified by Organization Details LastModified Time None Recorded Advance Directives Directive None Recorded Payers Encounter Date Sequence Insurance Name Policy Number Policy Gomez Covered Member ID Gomez Member ID Guarantor Name 01/06/2023 2 [place] [employer] Mary Pa [id number] Mary Pa 01/06/2023 1 [place] [id number] Mary aP [id number] Mary Pa 02/11/2023 1 [place] [id number] Mary Pa [id number] Mary Pa 03/07/2023 1 [place] [id number] Mary Pa [id number] Mary Pa Notes Date Note Type Note [...] sample PVR: 0ml Surg hx: appendix KALEY GASPERLIN, PA-C [address] [place] [address],[address], [place], [address], [facility] 01/06/2023 14:52:39 02/11/2023 text/html HPI Notes: seein g for recurring UTis' with dysuria, john later in the day. no gross heme. UA sm RBC, tr leuks and PVR 0ml today. Sanjay Knapp MD [address] [place] [address],[address], [address], [facility] 02/11/2023 15:58:46 03/07/2023 text/html HPI Notes: here for catheter removal after TURBT last week. 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 urine clear today. Sanjay Knapp MD [address] [place] [address],[address], [place], [address], [facility] 03/07/2023 12:36:58 OBGyn Episode No OBEpisode recorded.
== END 2024-07-24 10:57 | disposition home or self-care (01) ==
PROVIDERS: Emergency Provider Emergency Medicine; PCP Physician Assistant
DX: M54.2 Cervicalgia (principal); R51.9 Headache, unspecified
CPT/HCPCS: 70450; 72125; 99282; 99283

== ENCOUNTER 2025-01-12 10:08 | Outpatient (CLI) | payer MEDICARE, BC, SELFPAY ==
--- NOTE | 2025-01-12 10:15 | CRLHL7_ITS ---
For Patients: As a result of the Cures Act, medical imaging exams and procedure reports are released immediately into your electronic medical record. You may view this report before your referring provider. If you have questions, please contact your health care provider. For Patients: As a result of the Cures Act, medical imaging exams and procedure reports are released immediately into your electronic medical record. You may view this report before your referring provider. If you have questions, please contact your health care provider. CLINICAL HISTORY: Pill esophagitis TECHNIQUE:Fluoroscopy was provided for speech pathologist during video swallow study. Please see additional report for full details and recommendations. 1 minutes and 6 seconds of fluoroscopy time was utilized. FINDINGS: Patient was given barium of varying consistencies to ingest. There was one episode laryngeal penetration without aspiration during ingestion of thin barium liquids. There was no laryngeal penetration or aspiration during ingestion of pudding + cracker. Barium tablets passed freely. AP view normal swallow. Dictated by Simone Rowell MD @ 01/12/2025 11:02:00 AM (Electronically Signed)
== END 2025-01-12 10:09 | disposition home or self-care (01) ==
LOC: RAD 10:10
PROVIDERS: PCP Physician Assistant; Visit Provider Family Medicine
DX: R13.10 Dysphagia, unspecified (principal); K20.80 Other esophagitis without bleeding; T50.905A Adverse effect of unspecified drugs, medicaments and biological substances, initial encounter
CPT/HCPCS: 74230; 92611

== ENCOUNTER 2025-01-17 12:06 | Emergency (ER) | payer MEDICARE, BC, SELFPAY ==
--- OUTSIDE RECORDS SUMMARY | 2025-01-17 12:09 | XMS_ITS | Encounter Summary ---
Author Organization [facility] Address [address] [place] [id number] Care Team Providers Care Logistics Supply Officer Name Role Phone Elsewhere, Pcp Primary Care Provider Unavailabl e Reason for Visit * Reason Onset Date Comments Follow-up Orders 01/10/2025 Lab Question 01/10/2025 Encounter Details Date Type Department Care Team (Latest Contact Info) Description 01/10/2025 Clinical Communication Department of Urology in [place], [place] [address] [place] [address] Bart Greene M.D. [address] [place] [phone] Follow-up Orders; Lab Question Social History Tobacco Use Types Packs/Day Years [...] How often do you attend chur or episcopal services? More than 4 times per year 03/13/2023 Do you belong to any clubs o r organizations such as anglican groups, unions, fraternal or athletic groups, or [...] and heating? Not hard at all 03/13/2023 [facility] Occupational Stress Questionnaire Answer [...] place to sleep or slept in a skilled nursing (including now)? 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
--- OUTSIDE RECORDS SUMMARY | 2025-01-17 12:09 | XMS_ITS | Data Portability ---
Author Organization [place] - [facility], [facility] Address [address] [place] [address] Assessment No assessment recorded. Plan of Treatment Reminders Order Date Submit Date Provider Last Modified By Organization Details Last Modified Time Details Appointments None recorded. Lab urinalysis , dipstick [address], [facility], [facility] [address], [place], [address], 3 15:25:13 Referral None recorded. Procedures bladder scan (PROC) [address], [facility], [facility] [address], [place], [address], 3 15:25:13 Surgeries None recorded. Imaging None recorded. Medication Orders Pyridium 100 mg tablet 2022 023 [facility] [address] [place], [address], 3 14:47:58 Patient TargetsNo targets recorded. Patient Instructions Encounter Date Encounter Id Patient Instructions Last Modified By Organization Details Last Modified Time 01/06/2023 [id number] UTI treatments a nd managements were discussed. [...] estrogenation. [email or web address] Not available 01/06/2023 14:50:06 02/11/2023 [id number] will set up for TUR bladder tumor. IZABELA discussed [email or web address] Not available 02/11/2023 15:57:51 03/07/2023 [id number] catheter removed today. she is seeing DR Fer[facility] at [place] on Friday for consultation about further management of her cancer. [email or web address] Not available 03/07/2023 12:36:40 Reason for Referral None Reported. Results Created Date Observation Date Name Description Value Unit Range Abnormal Flag Note LastModifiedBy Organization Detail LastModifiedTime 02/12/2002/11/2023 urina lysis , dipst ick Color-Status Yellow Not Available [address] [place], [place], [address], 02/11/2023 15:24:34 02/12/20 23 02/11/2023 urina lysis , dipst ick Clarity-Stat us Slight ly Cloudy Not Available [address] [place], [place], [address], 02/11/2023 15:24:34 02/12/20 23 02/11/2023 urina lysis , dipst ick Glucose-Stat us Negati ve Not Available [address], [place], [address], 02/11/2023 15:24:34 02/12/20 23 02/11/2023 urina lysis , dipst ick Bilirubin-St atus Negati ve Not Available [address], [place], [address], 02/11/2023 15:24:34 02/12/20 23 02/11/2023 urina lysis , dipst ick Ketones-Stat us Negati ve Not Available [address], [place], [address], 02/11/2023 15:24:34 02/12/20 23 02/11/2023 urina lysis , dipst ick Sp Inman-Stat us 1.015 Not Available [address], [place], [address], 02/11/2023 15:24:34 02/12/20 23 02/11/2023 urina lysis , dipst ick pH-Status 7.0 Not Available [address], [place], [address], 02/11/2023 15:24:34 02/12/20 23 02/11/2023 urina lysis , dipst ick Urobilinogen -Status 0.2 Not Available [address], [place], [address], 02/11/2023 15:24:34 02/12/20 23 02/11/2023 urina lysis , dipst ick Nitrates-Sta tus negati ve Not Available [address], [place], [address], 02/11/2023 15:24:34 02/12/20 23 02/11/2023 urina lysis , dipst ick Blood-Status Small Not Available [address], [place], [address], 02/11/2023 15:24:34 02/12/20 23 02/11/2023 urina lysis , dipst ick Leuko-Status Trace Not Available [place] [id number] [facility] [address], [place], [address], 02/11/2023 15:24:34 02/12/20 23 02/11/2023 urina lysis , dipst ick Specimen Type Voided Not Available [facility] [place] [id number] [facility] [address], [place], [address], 02/11/2023 15:24:34 02/12/20 23 02/11/2023 bladd er scan (PROC ) Volume (in mL) 0ml Not Available [facility] [place] [id number] [facility] [address], [place], [address], 02/11/2023 15:20:28 03/05/20 23 02/11/2023 bladd er scan (PROC ) No observ ation record ed. BARCODE Not Available 2022 13:16:47 Result Notes None recorded. Procedures Surgical History Date Name Laterality Status Provider Name and Address Organization Details Recorded Time 3 Castaneda Catheter Removal completed February [facility] 03/05/2023 16:30:19 3 Cystoscopy- female completed Sanjay Knapp MD [address], [place], [address], [facility] 02/11/2023 15:57:10 3 Bladder Scan completed Michellefebruary [facility] 02/11/2023 15:20:09 3 Bladder Scan completed Radha Brunson [facility] 01/06/2023 14:13:41 Imaging Results [...] Updated DateTime 01/06/2023 157.48 cm 21.9 kg/m2 84639.08 g Radha Brunson [facility] 01/06/2023 14:13:03 Date Recorded Body height Body mass index (BMI) Body weight Provider Name and Address Organization Details Last Updated DateTime 02/11/2023 157.48 cm 21.9 kg/m2 58057.08 g Michelle Bull [facility] 02/11/2023 15:11:51 Date Recorded Body height Body mass index (BMI) Body weight Provider Name and Address Organization Details Last Updated DateTime 03/07/2023 157.48 cm 21.9 kg/m2 30186.08 g Carine Leija [facility] 03/07/2023 12:06:43 Social History Question Answer Notes LastModified by Organizat ion Details LastModified Time Tobacco Smoking Status Never Smoker Radha barnhart [facility] 01/06/2023 14:13:23 What Is Your Level Of Alcohol Consumption? None [email or web address] Information not available 02/11/2023 What Is Your Level Of Caffeine Consumption? None [email or web address] Information not available 02/11/2023 What Was The Date Of Your Most Recent Tobacco Screening? 02/11/2023 [email or web address] Information not available 02/11/2023 Do You Use Any Illicit Or Recreational Drugs? No [email or web address] Information not available 02/11/2023 Has Tobacco Cessation Counseling Been Provided? No [email or web address] Information not available 02/11/2023 Do You Or Have You Ever Used Any Other Forms Of Tobacco Or Nicotine? No [email or web address] Information not available 02/11/2023 Sex: Unknown Functional [...] 0 0 Immunizations Vaccine Type Date Status Note Provider Nam e and Address Organization Details Recorded Time COVID-19, mRNA, LNP-S, PF, 30 mcg/0.3 mL dose 1 [facility] 15:12:45 COVID-19, mRNA, LNP-S, PF, 30 mcg/0.3 mL dose 1 [facility] 15:12:45 COVID-19, mRNA, LNP-S, PF, 30 mcg/0.3 mL dose 2 completed [facility] 02/11/[facility] 15:12:45 COVID-19, mRNA, LNP-S, PF, 30 mcg/0.3 mL dose 1 [facility]/11/2023 15:12:45 pneumococcal polysaccharide PPV23 3 completed [facility] 02/11/2023 15:12:45 Pneumococcal conjugate PCV 13 5 completed Michelle Bull null, [facility] 02/11/2023 15:12:45 zoster recombinant 8 completed Klaudia Keenan null, [facility] 09/19/2023 14:52:57 zoster recombinant 8 completed Klaudia Nailsre null, [facility] 09/19/2023 14:52:57 Influenza, high-dose, quadrivalent, PF 1 completed Klaudia Nailsre null, [facility] 09/19/2023 14:52:57 Influenza, high-dose, quadrivalent, PF 2 completed Klaudia Keenan null, [facility] 09/19/2023 14:52:57 COVID-19, mRNA, LNP-S, bivalent, PF, 50 mcg/0.5 mL or 25mcg/0.25 mL dose 2 [facility] 14:52:57 influenza, unspecified formulation 9 completed [facility]23 14:52:57 Tdap 1 completed Klaudia Keenan null, [facility] 09/19/2023 14:52:57 zoster live 2 completed Klaudia Nailsre null, [facility] 09/19/2023 14:52:57 Influenza, high-dose, trivalent, PF 7 completed Klaudia Nailsre null, [facility] 09/19/2023 14:52:57 Influenza, high-dose, trivalent, PF 8 completed Klaudia Powellejere null, [facility] 09/19/2023 14:52:57 Influenza, high-dose, trivalent, PF 4 completed Klaudia Powellejere null, [facility] 09/19/2023 14:52:57 Influenza, high-dose, trivalent, PF 6 completed Klaudia Powellejere null, [facility] 09/19/2023 14:52:57 Influenza, high-dose, trivalent, PF 9 [facility] 14:52:57 Influenza, split virus, trivalent, preservative 6 completed [facility] 14:52:57 Influenza, split virus, trivalent, preservative 3 completed Klaudia Keenan null, [facility] 09/19/2023 14:52:57 Influenza, split virus, trivalent, preservative 8 [facility] 14:52:57 Influenza, split virus, trivalent, PF 2 [facility] 14:52:57 Influenza, split virus, trivalent, PF [address] [facility] 09/19/2023 14:52:57 Td (adult), 5 Lf tetanus toxoid, preservative free, adsorbed [address] [facility] 09/19/2023 14:52:57 Influenza, split virus, quadrivalent, PF [address] [facility] 09/19/2023 14:52:57 Past Encounters Encounter ID Performer Location Encounter Start Date Encounter Closed Date Diagnosis/Indication Diagnosis SNOMED-CT Code Diagnosis ICD10 Code Diagnosis Note [id number] KALEY BERGER PA-C [facility] [address] [place] [address] 01/06/2023 13:44:50 01/09/2023 10:23:18 History of urinary tract infection 5761741845 107 Z87.440 Will send urine for pathnostic sDiscussed prevention at length. Will start cranberry pills, d-mannoseC ontinue vaginal estrogen [id number] Sanjay Knapp MD [facility] [address] [facility],[address] [place] [address] 02/11/2023 15:06:18 02/14/2023 09:08:35 Dysuria 17794474 R30.0 Increased frequency of urination 059078532 R35.0 Neoplasm o f uncertain behavior of urinary bladder 52640087 D41.4 [id number] Sanjay Knapp MD [facility] 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 Health Concerns Section Related Observation LastModified by Organization Detai ls LastModified Time None Recorded Concern Status LastModified by Organization Details LastModified Time None Recorded Advance Directives Directive None Recorded Payers Encounter Date Sequence Insurance Name Policy Number Policy Gomez Covered Member ID Gomez Member ID Guarantor Name 01/06/2023 1 [place] [id number] Mary Pa [id number] Mary Pa 01/06/2023 2 [place] [employer] Mary Pa [id number] Mary Pa 02/11/2023 1 [place] [id number] Mary Pa [id number] Mary Pa 03/07/2023 1 [place] [id number] Mary Pa [id number] Mary Pa Notes Date Note Type Note Provider Name and Address Organization Details Recorded Time 01/06/2023 text/html Mary Pa is a 87 yo F referred [...] not had a UTI in decades. UCX Hx:12/23/22: negative12/16/22: <50k mixed flora12/09/22: <50k mixed beau UA today: unable to leave samplePVR: 0ml Surg hx: appendix KALEY BERGER PA-C [address] [place] [address],[address], [place], [address], [facility] 01/06/2023 14:52:39 02/11/2023 text/html seeing for recur ring UTis' with dysuria, john later in the day. no gross heme. UA sm RBC, tr leuks and PVR 0ml today. Sanjay Knapp MD [address] [place] [address],[address], [place], [address], [facility] 02/11/2023 15:58:46 03/07/2023 text/html here for cathete r removal after TURBT last week. 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 urine clear today. Sanjay Knapp MD [address] [place] [address],[address], [place], [address], [facility] 03/07/2023 12:36:58 OBGyn Episode No OBEpisode recorded.
--- OUTSIDE RECORDS SUMMARY | 2025-01-17 12:09 | XMS_ITS | Clinical Summary ---
Author Organization [facility] Address [address] [place] [id number] Care Team Providers Care Rougher For Cement Name Role Phone Gisel Mullen Primary Care Provider [phone] Allergies No known active allergies Medications cholecalciferol (Vitamin D) 1,000 unit tablet Take 2,000 units by mouth once daily. Active calcium carbonate (OS-KARIME 500) 500 mg calcium (1,250 mg) tablet Take 1,000 mg by mouth once daily with a meal. Active Graduated Compression StockingsIndicati ons:Venous insufficiency For personal use. Length: calf Strength: 20-30 mmHg size medium 2 Packet 06/27/20 23 Active lovastatin (MEVACOR) 10 mg tabletIndications :Mixed hyperlipidemia TAKE ONE-HALF TABLET (5 MG) BY MOUTH AT BEDTIME 45 Tablet 2 05/05/20 24 Active celecoxib (CELEBREX) 100 mg capsuleIndication s:Chronic pain of left knee Take 1 Capsule (100 mg) by mouth 2 times daily if needed for Pain. 60 Capsule 1 08/24/20 24 Active aspirin (ECOTRIN) 81 mg enteric coated tablet Take 81 mg by mouth once daily with a meal. Active donepeziL (ARICEPT) 10 mg tabletIndications :Early onset Alzheimer's dementia without behavioral disturbance, psychotic disturbance, mood disturbance, or anxiety, unspecified dementia severity (HC) Take 0.5 Tablets (5 mg) by mouth at bedtime for 30 days, THEN 1 Tablet (10 mg) at bedtime. 105 Tablet 3 11/26/19 25 025 Active DULoxetine (CYMBALTA) 20 mg Delayed-release capsuleIndication s:Chronic pain syndrome Take 1 Capsule (20 mg) by mouth once daily. 90 Capsule 3 12/02/19 25 Active docusate sodium (STOOL SOFTENER ORAL) Take by mouth. Activ e lubiprostone (AMITIZA) 8 mcg capIndications:Ch ronic constipation Take 1 Capsule (8 mcg) by mouth two times daily with meals. 180 Capsule 3 12/22/19 25 Active estradioL (ESTRACE) 0.01% (0.1 mg/g) vaginal creamIndications: Atrophic vaginitis Insert 500 mg intravaginally twice weekly. 42.5 g 3 12/22/19 25 Active gabapentin 250 mg/5 mL solutionIndicatio ns:Neuropathic pain Take 4 mL (200 mg) by mouth three times daily. 1080 mL 3 01/11/20 25 Active amLODIPine 2.5 mg tabletIndications :HTN (hypertension) Take 2 Tablets (5 mg) by mouth once daily. 01/15/20 25 Active gabapentin (NEURONTIN) 100 mg capsuleIndication s:Neuropathic pain TAKE TWO CAPSULES (200 MG TOTAL) BY MOUTH THREE TIMES A DAY 540 Capsule 3 07/19/20 24 025 Disconti nued(*Me dication adjustme nt) estradioL (ESTRACE) 0.01% (0.1 mg/g) vaginal creamIndications: Atrophic vaginitis Insert 1 G intravaginally nightly for 2 weeks, then 2-3 nights per week for 2 weeks, then once weekly for maintenance. 42.5 g 3 11/18/19 25 025 Disconti nued(Reo rder (E-cance l not sent)) amLODIPine (NORVASC) 2.5 mg tabletIndications :HTN (hypertension) Take 1 Tablet (2.5 mg) by mouth once daily. 90 Tablet 3 12/22/19 25 025 Disconti nued(Reo rder (E-cance l not sent)) gabapentin (NEURONTIN) 100 mg tabletIndications :Neuropathic pain Take 2 Tablets (200 mg) by mouth three times daily. 540 Tablet 3 12/22/19 25 025 Disconti nued(*Me d complete /Regimen complete /Level of care change) estradioL (ESTRACE) 0.01% (0.1 mg/g) vaginal creamIndications: Atrophic vaginitis Insert 500 mg intravaginally twice weekly. 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, left leg 11/22/2023 12/03/2024 Screening, malignant neoplasm, bladder 04/25/2023 04/25/2023 Primary cancer of bladder 04/25/2023 Overview (04/25/2023): Status post vaginal sparing radical cystectomy, bilateral pelvic lymph node dissection, hysterectomy BSA and ileal conduit creation Encounters Date Type Department Care Team Description 01/17/2025 Telephone [facility] [address] [place] [facility] [id number] Gisel Mullen PA Questions (returning call) 01/17/2025 Nurse Triage [facility] [address] [place] [address] [address] Gisel Mullen PA Throat Pain/problem 01/12/2025 Orders Only [facility] Scanner 1 scan: (1-Ord) [facility] , 01/12/2025 01/12/2025 Orders Only [facility] [address] [place] [address] [address] Gisel Mullen PA <No scans attached> 01/10/2025 2:30 PM CDT Nurse/Clinic Staff Only [facility] [address] [place] [id number] Lab (Outside lab orders) 01/10/2025 Travel 01/10/2025 Telephone [facility] [address] [place] [id number] Gisel Mullen PA Medication Management 01/07/2025 Telephone [facility] [address] [place] [address] Gisel Mullen PA Lab (urine) 12/25/2024 Nurse Triage [address] [place] [address] Gisel Mullen PA Hand Pain/problem 12/24/[address] [address] Torrie Marina, DO Questions (/) 12/21/2024 10:30 AM DATA WAREHOUSING ARCHITECT Telemedicine [address] [place] [address] Gisel Mullen PA Results (MRI-discuss quality of life with current conditions); Telehealth (Virtual visit, no vitals taken) 12/20/[address] [address] Gisel Mullen PA Questions 12/19/2024 Travel 12/17/[address] [address] Gisel Mullen PA Results 12/16/2024 Nurse Triage [facility] [address] [place] [address] Gisel Mullen PA Dysphagia 12/13/2024 2:00 PM DATA WAREHOUSING ARCHITECT Ancillary Procedure [address] [address] 12/13/2024 10:15 AM DATA WAREHOUSING ARCHITECT Office Visit [facility] [address] [place] [id number] Torrie Marina, DO Throat Problem (happened last night- feels like pill is stuck in throat/) 12/13/2024 Travel 12/13/2024 Nurse Triage [facility] [address] [place] [id number] Gisel Mullen PA Throat Problem 12/09/2024 Travel 12/07/2024 2:13 PM DATA WAREHOUSING ARCHITECT - 12/07/2024 11:59 PM DATA WAREHOUSING ARCHITECT Hospital Encounter [address] [address] Jayden Singh MD Burns, Kayla A, OT Memory loss 12/07/2024 Travel 12/02/2024 1:30 PM DATA WAREHOUSING ARCHITECT Office Visit [facility] [address] [place] [id number] Gisel Mullen PA Abdominal Pain (Low abdominal pain below naval, both sides, not concerning according to [place] but pt states it comes and goes and is very painful-affecting life) 12/02/2024 Travel 11/26/2024 Orders Only [facility] [address] [place] [address] Jayden Singh MD <No scans attached> 11/26/2024 Telephone [facility] [address] [place] [address] Jayden Singh MD Questions 11/26/2024 Telephone [facility] [address] [place] [id number] Gisel Mullen PA Error-please disregard 11/24/2024 Nurse Triage [facility] [address] [place] [id number] Gisel Mullen PA Abdominal Pain 11/22/2024 Telephone [facility] [address] [place] [address] Gisel Mullen PA Questions; Cognitive Impairment 11/18/2024 1:10 PM DATA WAREHOUSING ARCHITECT Office Visit [facility] [address] [place] [address] Gisel Mullen PA Vaginal Problem (Urology provider wanted her to come in for a vaginal swab) 11/17/2024 Travel 11/16/2024 3:20 PM DATA WAREHOUSING ARCHITECT Office Visit [facility] [place] [address] [place] [address] Jayden Singh MD Consult (Memory loss/Referred by KORIN Salinas ) 11/16/2024 Travel 11/08/2024 3:10 PM DATA WAREHOUSING ARCHITECT Telemedicine [facility] [address] [place] [address] Gisel Mullen PA Telehealth (Virtual visit, no vitals taken); Vaginal Problem (Having some pain in abdomen but has has been since bladder was removed-having a 'wetness' or vaginal discharge-yellow in color-notices this on her pads-wiping is normal) 11/08/2024 Travel 11/03/2024 Nurse Triage [facility] [address] [place] [address] Gisel Mullen PA Questions 11/03/2024 Telephone [facility] [address] [place] [address] Gisel Mullen PA 11/02/2024 Nurse Triage [facility] [address] [place] [address] Gisel Mullen PA Constipation from Last 3 Months Immunizations Immunization Administration Dates Next Due COVID-19 VACCINE SPIKEVAX (M ODERNA 50MCG/0.5ML) 12YO+ PFS 01/15/2024,08/08/2023 COVID-19 vaccine (Moderna 50 mcg/0.5mL) 12YO+ BIVALENT PF, MDV 07/12/2022 COVID-19 vaccine (Pfizer-Bio NTech 30mcg/0.3mL) 12YO+ BIVALENT PF, MDV 04/24/2023 Influenza Virus, Unspecified 07/18/2009 Influenza, High-dose Inactivated 019,07/20/2018,07/14/2017,08/15,08/11/2014 Influenza, High-dose Quadriv alent Inactivated 08/07/2022,07/20/2021 Influenza, IIV3 (Age 6-35 mos) 07/30/2012,2009 Influenza, IIV3 (Age >=3 years) 08/29/2013,08/31,08/19/2006 Influenza, IIV4 08/17/2015 Influenza, Inactivated AIIV4 (Age 65+ Years) Preserv Free 08/08/2023 Influenza, Inactivated IIV3 (Age 65+ Years) Preserv Free 09/07/2024 Pneumococcal Poly,23-Valent (Pneumovax) 09/24/2013 Pneumococcal conj 13-Valent (Prevnar 13) 01/24/2015 RSV, Recombinant ADJ Reconst ituted (Arexvy 120MCG/0.5mL) 12/26/2023 Td, Preservative Free (age >= 7 Years) 8 Tdap 04/19/2011 Zoster (Shingrix-RZV, recombinant) 10/08/2018, Zoster (Zostavax-ZVL, live) 10/19/2012 Family History Medical History Relation Name Comments Depression Mother Relation Name Status Comments Mother Social History Tobacco Use Types Packs/Day Years Used Date Smoking Tobacco: Never Smokeless Tobacco: Never Tobacco Cessation:Counseling Given: Yes Alcohol Use Standard Drinks/Week Comments Not Currently 0 (1 standard drink = 0.6 oz pure alcohol) 1 glass of wine once every 2 weeks PHQ-2 Answer Date Recorded PHQ-2 TOTAL SCORE 2 04/24/2023 Social Connections Answer Date Recorded Do you often feel lonely or isolated from those around you? 0 08/24/2024 Alcohol Use Answer Date Recorded How often do you have a drink containing alcohol ? 2 11/16/2024 How many drinks containing a lcohol do you have on a typical day when you are drinking? 0 11/16/2024 How often do you have five or more drinks on one occasion? 0 11/16/2024 Financial Resource Strain Answer Date R ecorded Difficulty of Paying Living Expenses 3 08/24/2024 Difficulty of Paying Living Expenses Not on file 08/24/2024 Food Insecurity Answer Date Recorded Do you worry your food will run out before you are able to buy more? 1 08/24/2024 Transportation Needs Answer Date Record ed Does lack of transportation keep you from medica l appointments? 1 08/24/2024 Does lack of transportation keep you from work, meetings or getting things that you need? 1 08/24/2024 Housing Stability Answer Date Recorded What is your housing situation today? 1 08/24/2024 Utilities Answer Date Recorded Do you have trouble paying f or utilities (for example, heat, electricity, water, phone)? 1 08/24/2024 Comments No Sex and Gender Information Value Date Recorded Sex Assigned at Not on file Legal Sex Female 6:25 AM DATA WAREHOUSING ARCHITECT Gender Identity Not on file Sexual Orientation Not on file Obstetrics History Last Filed Vital Signs Vital Sign Reading Time Taken Comments Blood Pressure 170/78 12/13/2024 10:25 AM DATA WAREHOUSING ARCHITECT Pulse 71 12/13/2024 10:25 AM DATA WAREHOUSING ARCHITECT Temperature 36.6 C (97.9 F) 03/15/2024 1:14 PM CDT Respiratory Rate 14 03/15/2024 1:14 PM CDT Oxygen Saturation 98% 12/13/2024 10: 25 AM DATA WAREHOUSING ARCHITECT Inhaled Oxygen Concentration - - Weight 51.2 kg (112 lb 12.8 oz) 025 10:25 AM DATA WAREHOUSING ARCHITECT Height 155.3 cm (5' 1.14) 04/24/2023 2:47 PM CD T Body Mass Index 21.21 04/24/2023 2:47 PM CDT Plan of Treatment Upcoming Encounters Date Type Department Care Team (Late st Contact Info) Description 01/24/2025 10:30 AM CDT Office Visit [facility] [address] [place] [address] Gisel Mullen PA [address] [place] [address] Health Maintenance Due Date Last Done Comments BMI (ht and wt on same day) for age 18+ 04/24/2024 04/24/2023 Depression screening for age 12+ 04/24/2024 04/24/20 Medicare Wellness for age 65+ 04/24/2024 04/24/2023 COVID-19 vaccine series ( season) 2025 09/30/2024, 01/15/2024, 08/08/2023, Additional history exists Tetanus booster 12/28/2027 12/27/2017, 04/19/2011 Tdap Completed 04/19/2011 Pneumococcal series for age 50+ Completed 5, 09/24/2013 Zoster (shingles) series for age 50+ Completed 10/08/2018, 08/05/2018, 10/19/2012 DEXA/DXA scan for age 65+ Completed 2019 [facility] RSV vaccine for adults or Completed 12/26/2023 Influenza Vaccine Completed 09/07/2024, , 08/17/2019, Additional history exists Procedures Procedure Name Priority Date/Time Associated Diagnosis Comments SCAN-RADIOLOGY REPORT 01/12/2025 12:00 AM CDT MR PELVIS WWO Routine 12/13/2024 5:10 PM DATA WAREHOUSING ARCHITECT Chronic abdominal pain Chronic pelvic pain in female Vaginal discharge TRICHOMONAS, YOCASTA, AND BACTERIAL VAGINOSIS BY GUSTAVO Routine 11/18/2024 2:13 PM DATA WAREHOUSING ARCHITECT Vaginal discharge from Last 3 Months Results * SCAN-RADIOLOGY REPORT (01/12/2025 12:00 AM CDT) Anatomical Region Laterality Modality Other us Scanner OTHER Final Result * MR PELVIS WWO (12/13/2024 5:10 PM DATA WAREHOUSING ARCHITECT) Anatomical Region Laterality Modality Pelvis Magnetic Resonan ce 12/15/2024 10:4 5 AM DATA WAREHOUSING ARCHITECT Addenda Addendum by Yaw Mendez MD on 12/15/2024 1:42 PM DATA WAREHOUSING ARCHITECT For Patients: As a result of the Century Cures Act, medical imaging exams and procedure reports are released immediately into your electronic medical record. You may view this report before your referring provider. If you have questions, please contact your health care provider. EXAM: MRI OF THE PELVIS, WITHOUT AND WITH IV CONTRAST CLINICAL INDICATION: Chronic pelvic pain. COMPARISON PLAIN FILMS: 08/24/2024. COMPARISON CROSS-SECTIONAL IMAGING STUDIES: 09/23/2023 CT abdomen pelvis. TECHNICAL: Axial, sagittal and coronal T1, PD FS and STIR images of the pelvis precontrast. Postcontrast T1 weighted imaging with fat saturation. Contrast: MultiHance, 15 mL IV. FINDINGS: HIP JOINTS: Right: Mild to moderate chondromalacia. No joint effusion. Left: Mild to moderate chondromalacia. No joint effusion. OSSEOUS STRUCTURES: No fracture, bone marrow contusion or stress change. No or marrow replacement process. No evidence for avascular necrosis. MUSCULOTENDINOUS STRUCTURES AND BURSAE: Gluteus Minimus and Medius: No tendon tear or tendinopathy. No muscle atrophy or edema. Bursae: No trochanteric or iliopsoas bursitis. Common Hamstrings: No tendon tear or tendinopathy. Other: Tendons and myotendinous junctions are intact. No muscle atrophy or edema. SOFT TISSUES: Mild subcutaneous edema in the lower abdominal wall. No subcutaneous hematoma or fluid collection. OTHER JOINTS: Sacroiliac joints are maintained. Pubic symphysis is maintained. INTRAPELVIC CONTENTS: Hysterectomy and cystectomy. Right-sided abdominal wall ostomy. No parastomal hernia. No fluid collection. No adenopathy. No bowel dilatation. NEUROVASCULAR STRUCTURES: No abnormality of the proximal femoral or sciatic nerves. No aneurysmal dilatation of the visualize distal aorta. IMPRESSION: 1. Hysterectomy and cystectomy. 2. Right-sided abdominal wall ostomy. 3. Mild subcutaneous edema in the lower abdominal wall. 4. [id number] chondromalacia at the hips. 5. Remainder unremarkable. Dictated by Yaw Mendez MD @ 12/15/2024 1:42:15 PM (Electronically Signed) Narrative 12/15/2024 10:45 AM DATA WAREHOUSING ARCHITECT For Patients: As a result of the 21st Century Cures Act, medical imaging exams and procedure reports are released immediately into your electronic medical record. You may view this report before your referring provider. If you have questions, please contact your health care provider. INDICATION: Pelvic pain. History of bladder/endometrial cancer. COMPARISON: CT scan of the abdomen and pelvis dated 23 September 2023. TECHNIQUE: Pelvic MRI with T1, T2, and postcontrast images. Intravenous gadolinium administered. FINDINGS: Hysterectomy. The ovaries are not visualized. Cystectomy with an ileal conduit in the right anterior pelvis. No pelvic masses or adenopathy. Minimal bone marrow edema adjacent to the posterior aspects of the SI joints, [id number]-left. No other bony or soft tissue abnormalities identified. Impression : 1. Minimal bone marrow edema adjacent to the posterior aspects of the SI joints, right greater than left, could be due to degenerative changes. 2. No other acute abnormalities of the pelvis identified. Dictated by Chris Flores MD @ 12/15/2024 10:45:17 AM (Electronically Signed) Procedure Note Chris Flores MD / Yaw Mendez MD - 12/15/2024 For Patients: As a result of the Cures Act, medical imagingexams and procedure reports are released immediately into your electronicmedical record. You may view this report before your referring provider.If you have questions, please contact your health care provider. INDICATION: Pelvic pain. History of bladder/endometrial cancer. COMPARISON: CT scan of the abdomen and pelvis dated 23 September 2023. TECHNIQUE: Pelvic MRI with T1, T2, and postcontrast images. Intravenous gadoliniumadministered. FINDINGS: Hysterectomy. The ovaries are not visualized. Cystectomy with an ileal conduit in the right anterior pelvis. No pelvic masses or adenopathy. Minimal bone marrow edema adjacent to the posterior aspects of the SIjoints, [id number]-left. No other bony or soft tissue abnormalities identified. Impression : 1. Minimal bone marrow edema adjacent to the posterior aspects of the SIjoints, right greater than left, could be due to degenerative changes. 2. No other acute abnormalities of the pelvis identified. Dictated by Chris Flores MD @ 12/15/2024 10:45:17 AM (Electronically Signed) us Gisel LANGLEY MR Edited Res ult - Final * TRICHOMONAS, YOCASTA, AND BACTERIAL VAGINOSIS BY GUSTAVO (11/18/2024 2:13 PM DATA WAREHOUSING ARCHITECT) YOCASTA SPECIES Negative Negative 3:18 PM DATA WAREHOUSING ARCHITECT [facility] YOCASTA GLABRATA Negative Negative 11/19/2024 3:18 PM DATA WAREHOUSING ARCHITECT [facility] TRICHOMONAS VVA Negative Negative 3:18 PM DATA WAREHOUSING ARCHITECT [facility] BACTERIAL VAGINOSIS Negative Negative 11/19/2024 3:18 PM DATA WAREHOUSING ARCHITECT [facility] Other VAGINAL SWAB / Unknown Non-Blood / Unknown 11/18/2024 2:13 PM DATA WAREHOUSING ARCHITECT 11/18/2024 2:16 PM DATA WAREHOUSING ARCHITECT us Gisel LANGLEY MICROBIOLOGY Final Resu lt [facility] [address] [place] [address], from Last 3 Months Insurance MEDICARE PART B HB ONLY MEDICARE PART A HB ONLY [employer] BLUE HB ONLY [employer] BLUE MR PB ONLY Advance Directives * Full Code (Latest Code Status on File) Date Activated Date Inactivated Comments 02/27/2023 10:24 AM 02/27/2023 6:06 PM Question Answer Comments Code Status Discussion: Unable to Assess Preferences, Provider to review later Care Teams Rougher For Cement Relationship Specialty Start Date End Date Gisel Mullen PA [address] [place] [address] PCP - General Physician Starcher And Tenter Range Feeder 04/26/23
--- OUTSIDE RECORDS SUMMARY | 2025-01-17 12:10 | XMS_ITS | Encounter Summary ---
Author Organization [facility] Address [address] [place] [id number] Care Team Providers Care Fishing Tool Operator Name Role Phone Elsewhere, Pcp Primary Care Provider Unavailabl e Reason for Visit * Reason Onset Date Comments After Visit Question 12/29/2024 Encounter Details Date Type Department Care Team (Latest Contact Info) Description 12/29/2024 Clinical Communication Department of Urology in [place], [place] [address] [place] [phone] Chavez Ferrer M.D. [address] [place] [phone] After Visit Question Social History Tobacco Use Types Packs/Day [...] often do you attend chur ch or rastafarian services? More than 4 times per year 03/13/2023 Do you belong to any clubs o r organizations such as sikh groups, unions, fraternal or athletic groups, or [...] and heating? Not hard at all 03/13/2023 [facility] - Occupational [...] PM CDT Legal Sex Female 10:39 PM PLUMBING ENGINEER Gender Identity Female 03/13/2023 3:04 PM CDT Sexual Orientation Straight 03/13/2023 3: 04 PM CDT documented as of this encounter Miscellaneous Notes * Telephone Encounter - Bart Greene M.D. - 01/07/2025 9:40 AM CDT Called patient to check in. She feels fine. Discussed evaluation and offered antibiotics, but she declined and prefers to go through PCP. Reviewed warning signs and that she may need to be evaluated in the ED if things worsen. She will let us know if we can assist further. * Telephone Encounter - Santosh Oquendo M.D. 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
--- OUTSIDE RECORDS SUMMARY | 2025-01-17 12:10 | XMS_ITS | Encounter Summary ---
Author Organization [facility] Address [address] [place] [phone] Care Team Providers Care Astronomy Professor Name Role Phone Elsewhere, Pcp Primary Care Provider Unavailabl e Reason for Visit * Reason Onset Date Comments Phone Call 11/09/2024 Encounter Details Date Type Department Care Team (Late st Contact Info) Description 11/09/2024 Clinical Communication Department of Urology in [place], [place] [address] [place] [phone] Chavez Ferrer M.D. [address] [place] [phone] Phone Call Social History Tobacco Use Types Packs/Day Years [...] often do you attend chur ch or yazdanism services? More than 4 times per year 03/13/2023 Do you belong to any clubs o r organizations such as cheondoism groups, unions, fraternal or athletic groups, or [...] and heating? Not hard at all 03/13/2023 [facility] - Occupational [...] place to sleep or slept in a fdc (including now)? No 03/13/2023 Nutrition Answer Date [...] PM CDT Legal Sex Female 10:39 PM HARP ACTION ASSEMBLER Gender Identity Female 03/13/2023 3:04 PM CDT Sexual Orientation Straight 03/13/2023 3: 04 PM CDT documented as of this encounter Miscellaneous Notes * Telephone Encounter - Matheus Albarran IV, M.D. - 11/09/2024 3:19 PM HARP ACTION ASSEMBLER Telephone call with patient She describes small-volume leakage of clear/clear-yellow fluid per vagina since surgery. Requires 1 pad per day and 1 pad per night. No blood seen. No other associated symptoms. I recommended that she obtain pelvic exam with her local PCP with whom she has a good rapport. We are set to see her back in December 2024 and can revisit the symptoms then as well. ACTION ASSEMBLER documented in this encounter Plan of Treatment Not on file documented as of this encounter Visit Diagnoses Not on filedocumented in this encounter Care Teams Astronomy Professor Relationship Specialty Start Date End Date Elsewhere, Pcp PCP - General Internal Medicine 03/13/23 documented as of this encounter
--- OUTSIDE RECORDS SUMMARY | 2025-01-17 12:10 | XMS_ITS | Encounter Summary ---
Author Organization [facility] Address [address] [place] [id number] Care Team Providers Care Turkish Line Attendant Name Role Phone Elsewhere, Pcp Primary Care Provider Unavailabl e Encounter Details Date Type Department Care Team (Latest Contact Info) Description 12/27/2024 8:31 AM CDT - 12/27/2024 8:51 AM CDT Hospital Encounter Department of Laboratory Medicine and Pathology, [facility] in [place], [place] [address] [place] [phone] Bart Greene M.D. [address] [place] [phone] Malignant Neoplasm Of Bladder (HCC) Discharge Disposition: Home or Self Care Social History Tobacco Use Types Packs/Day Years [...] How often do you attend chur or alevism services? More than 4 times per year 03/13/2023 Do you belong to any clubs o r organizations such as religious groups, unions, fraternal or athletic groups, or [...] and heating? Not hard at all 03/13/2023 [facility] - Occupational [...] place to sleep or slept in a correction (including now)? 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 3 amLODIPine (Norvasc) 2.5 mg tablet Take 1 tablet by mouth daily. [address] tablet Take 81 mg by mouth daily. CALCIUM CITRATE-VITAMIN D3 ORAL Take 1 tablet by mouth daily. yifan.stockin g,thigh,reg,med misc cyanocobalamin (vitamin B-12) 100 mcg tablet Take 100 mcg by mouth 3 (three) times a week. 4 DME Ostomy suppliesIndicat ions:Malignant Neoplasm Of Bladder (HCC) DME Order 1 Unspecified 11 4 DOCUSATE SODIUM ORAL Take by mouth daily. donepeziL (Aricept) 10 mg tablet Take 10 mg by mouth at bedtime. 5 03/26/20 25 DULoxetine (Cymbalta) [address] capsule Take 1 capsule by mouth daily. 5 estradioL (Estrace) 0.1 mg/g (0.01%) vaginal cream Insert 500 mg intravaginally twice weekly. 5 gabapentin (NEURONTIN) 100 mg capsule Take 200 mg by mouth 3 (three) times a day. 3 lovastatin (MEVACOR) 10 mg tablet Take 5 mg by mouth daily with dinner. (Takes 1/2 tab) 3 lubiprostone (Amitiza) 8 mcg capsule Take 8 mcg by mouth. Not started yet 5 zinc gluconate 30 mg tablet Take 30 mg by mouth 2 (two) times a week. documented as of this encounter Plan of Treatment Not on file documented as of this encounter Procedures Procedure Name Priority Date/Time Associated Diagnosis Comments VITAMIN B12 ASSAY, S Routine 12/27/2024 8:47 AM CDT Malignant Neoplasm Of Bladder (HCC) COMPREHENSIVE METABOLIC PANEL, S/P Routine 12/27/2024 8:47 AM CDT Malignant Neoplasm Of Bladder (HCC) documented in this encounter Results * Vitamin B12 Assay (12/27/2024 8:47 AM CDT) Vitamin B12 Assay, S 522 180 - 914 ng/L 12/27/2024 11:00 AM CDT DTL Comment: ----ADDITIONAL INFORMATION---- In patients being evaluated for vitamin B12 deficiency who have intrinsic factor blocking antibodies (IFBA), false elevations of B12 may occur due to IFBA interference thus potentially obscuring a physiological deficiency of B12. If observed B12 concentrations are discordant with clinical presentation, measurement of methylmalonic acid (MMA) should be considered. Blood (Blood, Venous) 12/27/2024 8:47 AM CDT 12/27/2024 9:26 AM CDT us Bart Greene M.D. LAB BLOOD ADD-ON Final Resu lt [facility] [address] [place] [address], [facility] DTL [facility] [address] [place] [address] * (ABNORMAL) Comprehensive Metabolic Panel (12/27/2024 8:47 AM CDT) Potassium, S 4.6 3.6 - 5.2 mmol/L 12/27/2024 12:07 PM CDT DTL Sodium, S 141 135 - 145 mmol/L 12/27/2024 12:07 PM CDT DTL Chloride, S 103 98 - 107 mmol/L 12/27/2024 12:07 PM CDT DTL Bicarbonate, S 25 22 - 29 mmol/L 12/27/2024 12:07 PM CDT DTL Anion Gap 13 7 - 15 12/27/2024 12:07 PM CDT DTL BUN (Blood Urea Nitrogen), S 18 6 - 21 mg/dL 12/27/2024 12:07 PM CDT DTL Creatinine 0.82 0.59 - 1.04 mg/dL 12/27/2024 12:07 PM CDT DTL Estimated GFR (eGFR) 69 >=60 mL/min/BS A 12/27/2024 12:07 PM CDT DTL Comment: Estimated GFR calculated using the 2020 CKD_EPI creatinine equation. Calcium, Total, S 9.1 8.8 - 10.2 mg/dL 12/27/2024 12:07 PM CDT DTL Glucose, S 147(H) 70 - 140 mg/dL 12/27/2024 12:07 PM CDT DTL Protein, Total, S 6.9 6.3 - 7.9 g/dL 12/27/2024 12:07 PM CDT DTL Albumin, S 4.3 3.5 - 5.0 g/dL 12/27/2024 12:07 PM CDT DTL Aspartate Aminotransferase (AST), S 24 8 - 43 U/L 12/27/2024 12:07 PM CDT DTL Alkaline Phosphatase, S 103 35 - 104 U/L 12/27/2024 12:07 PM CDT DTL Alanine Aminotransferase (ALT), S 29 7 - 45 U/L 12/27/2024 12:07 PM CDT DTL Bilirubin, Total, S 0.3 0.0 - 1.2 mg/dL 12/27/2024 12:07 PM CDT DTL Blood (Blood, Venous) 12/27/2024 8:47 AM CDT 12/27/2024 9:26 AM CDT Bart Greene M.D. LAB BLOOD ADD-ON Final Resu lt [facility] [address] [place] [address], [facility] DTL [facility] [address] [place] [address] documented in this encounter Visit Diagnoses Diagnosis Malignant Neoplasm Of Bladder (HCC) documented in this encounter Care Teams Turkish Line Attendant Relationship Specialty Start Date End Date Elsewhere, Pcp PCP - General Internal Medicine 03/13/23 documented as of this encounter
--- OUTSIDE RECORDS SUMMARY | 2025-01-17 12:10 | XMS_ITS | Encounter Summary ---
Author Organization [facility] Address [address] [place] [address] Care Team Providers Care Global Account Director Name Role Phone Elsewhere, Pcp Primary Care Provider Unavailabl e Reason for Referral * Outpatient (Routine) - Authorized Specialty Diagnoses / Procedures Referred By Contac t Referred To Contact Oncology Estrellita Turner APRN, C.N.P., M.S.N. [address] [place] [phone] Phone: tel: fax: [facility] Referral ID Status Reason Start Date Expiration Date V isits Requested Visits Authorized [id number] Authorized 12/27/2024 06/28/2026 1 1 * MRI/CAT/PET Scan (Routine) - Authorized Specialty Diagnoses / Procedures Referred By Contac t Referred To Contact Radiology Diagnoses Malignant Neoplasm Of Endometrium (HCC) Procedures CT Abdomen Pelvis with IV Contrast Estrellita Turner APRN C.N.P., M.S.N. [address] [place] [phone] Phone: tel: fax: [facility] Referral ID Status Reason Start Date Expiration Date V isits Requested Visits Authorized [id number] Authorized 12/27/2024 03/29/2026 1 1 * MRI/CAT/PET Scan (Routine) - Authorized Specialty Diagnoses / Procedures Referred By Fidel bell Referred To Contact Radiology Diagnoses Malignant Neoplasm Of Endometrium (HCC) Procedures CT Chest with IV Contrast Estrellita Turner APRN, C.NGracia, M.S.N. [address] [place] [phone] Phone: tel: fax: [facility] Referral ID Status Reason Start Date Expiration Date V isits Requested Visits Authorized [id number] Authorized 12/27/2024 03/29/2026 1 1 Reason for Visit * Outpatient (Routine) - Closed Specialty Diagnoses / Procedures Referred By Fidel bell Referred To Contact Oncology Estrellita Turner APRN, C.NGracia, M.S.N. [address] [place] [phone] Phone: tel: fax: [facility] Referral ID Status Reason Start Date Expiration Date Visits Re quested Visits Authorized [id number] Closed 07/05/2024 01/04/2026 1 1 Encounter Details Date Type Department Care Team (Late st Contact Info) Description 12/27/2024 1:20 PM CDT Office Visit Department of Oncology in [place], [place] [address] [place] [phone] Estrellita Turner APRN, C.NGracia, M.S.N. [address] [place] [phone] Malignant Neoplasm Of Endometrium (HCC) (Primary Dx) Social History Tobacco Use Types Packs/Day Years [...] week 03/13/2023 How often do you attend [facility] or nondenominational services? More than 4 times per year 03/13/2023 Do you belong to any clubs o r organizations such as yazidism groups, unions, fraternal or athletic groups, or [...] and heating? Not hard at all 03/13/2023 [facility] - Occupational Stress [...] to sleep or slept in a senior care (including now)? 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 Gender Identity Female 03/13/2023 3:04 PM CDT Sexual Orientation Straight 03/13/2023 3: 04 PM CDT documented as of this encounter Last Filed Vital Signs Vital Sign Reading Time Taken Comments Blood Pressure 152/85 12/27/2024 1:04 PM CDT Pulse 80 12/27/2024 1:04 PM CDT Temperature 36.3 C (97.3 F) 12/27/2024 1:04 PM CDT Respiratory Rate 14 12/27/2024 1:04 PM CDT Oxygen Saturation 94% 12/27/2024 1:04 PM CDT Inhaled Oxygen Concentration - - Weight 52.1 kg (114 lb 13.8 oz) 12/27/2024 1:04 PM CDT Height 153.4 cm (5' 0.39) 12/27/2024 1:04 PM CD T Body Mass Index 22.14 12/27/2024 1:04 PM CDT documented in this encounter Progress Notes * Estrellita Turner APRN, C.N.P., M.S.N. - 12/27/2024 1:20 PM CDT SUBJECTIVE CHIEF COMPLAINT/REASON FOR VISIT Ms. Pa is a 89 y.o. 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 Pa is [...] HISTORY: Ms. 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 She is having some right-sided pain intermittently and some pelvic painweekly to every other week for which she will just lay down and use a heating pad. 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 She has constipation for which she uses MiraLax as needed and Senokot 1-2 tabs in the evening. Her ileal conduit is functioning well and she has no vaginal bleeding but does have some vaginal discharge. REVIEW OF SYSTEMS Pertinent items are noted in HPI; all other review of systems were negative. OBJECTIVE VITAL SIGNS BP Readings from Last 1 Encounters: 07/05/24 158/79 Pulse Readings from Last 1 Encounters: 07/05/24 75 Temp Readings from Last 1 Encounters: 07/05/24 36 ??C (Tympanic) No data recorded PHYSICAL EXAMINATION [...] Mood and affect appropriate for situation. Pelvic: Choke Reamer: TREVER Alvarado. External genitalia without redness or erythema. Speculum inserted, vault and cuff visualized and without nodularity or abnormality. Bimanual exam reveals no adnexal masses or nodularity. Rectal: No vaginal/rectal septal nodularity or adnexal nodularity. DIAGNOSTICS I reviewed the pertinent laboratory and diagnostic data. ASSESSMENT / PLAN #1 Malignant Neoplasm of Endometrium Ms. 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 She had a CT of the chest that showed a new 2 mm right lower lobenodule and stable 3 mm right middle lobe nodule. She also had a CT urogram that showed a focal area of hypodensity in the left kidney probably represents focal pyelonephritis, but no evidence of recurrence or metastasis in the abdomen or pelvis. I will defer to Urology to manage the pyelonephritis.Exam is negative and I consider her to be in remission. Plan will be to see her back in [address] of the chest, abdomen and pelvis to check on cancer status. ECOG score of 1 PATIENT EDUCATION Ready to learn, no apparent learning barriers were identified; learning preferences include listening. Explained diagnosis and treatment plan; patient expressed understanding of the content. documented in this encounter Plan of Treatment Scheduled Orders Name Type Priority Associated Diagnoses Orde r Schedule CT Chest with IV Contrast Imaging RAD - Routine (most inpatients and all outpatients) Malignant Neoplasm Of Endometrium (HCC) Expected: 06/29/2025 (Approximate), Expires: 03/29/2026 CT Abdomen Pelvis with IV Contrast Imaging RAD - Routine (most inpatients and all outpatients) Malignant Neoplasm Of Endometrium (HCC) Expected: 06/29/2025 (Approximate), Expires: 03/29/2026 Creatinine with Estimated GFR Lab Routine Malignant Neoplasm Of Endometrium (HCC) Expected: 06/29/2025 (Approximate), Expires: 12/27/2025 Scheduled Referrals Name Type Priority Associated Diagnoses Orde r Schedule Oncology office visit (clinic) Outpatient Referral Routine Expected: 06/29/2025 (Approximate), Expires: 03/29/2026 documented as of this encounter Visit Diagnoses Diagnosis Malignant Neoplasm Of Endometrium (HCC)- Primary documented in this encounter Care Teams Global Account Director Relationship Specialty Start Date End Date Elsewhere, Pcp PCP - General Internal Medicine 03/13/23 documented as of this encounter
--- OUTSIDE RECORDS SUMMARY | 2025-01-17 12:10 | XMS_ITS | Encounter Summary ---
Author Organization [facility] Address [address] [place] [address] Care Team Providers Care Movie Projectionist Name Role Phone Elsewhere, Pcp Primary Care Provider Unavailabl e Reason for Referral * Outpatient (Routine) - Authorized Specialty Diagnoses / Procedures Referred By Contac t Referred To Contact Diagnoses Malignant Neoplasm Of Bladder (HCC) Procedures URO Stoma care Gaurang Seth P.A.-Siva [address] [place] [phone] Phone: tel: fax: [facility] Referral ID Status Reason Start Date Expiration Date V isits Requested Visits Authorized [id number] Authorized 12/27/2024 03/29/2026 12 12 * MRI/CAT/PET Scan (Routine) - Authorized Specialty Diagnoses / Procedures Referred By Contac t Referred To Contact Radiology Diagnoses Malignant Neoplasm Of Bladder (HCC) Procedures CT Chest without IV Contrast Gaurang Seth P.A.-CJhonathan [address] [place] [phone] Phone: tel: fax: [facility] Referral ID Status Reason Start Date Expiration Date V isits Requested Visits Authorized [id number] Authorized 12/27/2024 03/29/2026 1 1 * Outpatient (Routine) - Authorized Specialty Diagnoses / Procedures Referred By Contac t Referred To Contact Urology Gaurang Seth P.A.-C. [address] [place] [phone] Phone: tel: fax: [facility] Referral ID Status Reason Start Date Expiration Date V isits Requested Visits Authorized [id number] Authorized 12/27/2024 06/28/2026 1 1 * MRI/CAT/PET Scan (Routine) - Authorized Specialty Diagnoses / Procedures Referred By Fidel t Referred To Contact Radiology Diagnoses Malignant Neoplasm Of Bladder (HCC) Procedures CT Urogram without and with IV Contrast Gaurang Seth P.A.-C. [address] [place] [phone] Phone: tel: fax: [facility] Referral ID Status Reason Start Date Expiration Date V isits Requested Visits Authorized [id number] Authorized 12/27/2024 03/29/2026 1 1 Reason for Visit * Outpatient (Routine) - Closed Specialty Diagnoses / Procedures Referred By Contac t Referred To Contact Urology Bart Greene M.D. [address] [place] [phone] Phone: tel: fax: Chavez Ferrer M.D. [address] [place] [phone] Phone: tel: fax: Referral ID Status Reason Start Date Expiration Date Visits Re quested Visits Authorized [id number] Closed 08/04/2024 02/03/2026 1 1 Encounter Details Date Type Department Care Team (Late st Contact Info) Description 12/27/2024 3:30 PM CDT Office Visit Department of Urology in [place], [place] [address] [place] [phone] Chavez Ferrer M.D. 200 [place] [phone] Malignant Neoplasm Of Bladder (HCC) (Primary Dx) Social History Tobacco Use [...] How often do you attend chur or religion services? More than 4 times per year 03/13/2023 Do you belong to any clubs o r organizations such as jainism groups, unions, fraternal or athletic groups, or [...] and heating? Not hard at all 03/13/2023 [facility] - Occupational Stress Questionnaire Answer Date Recorded [...] place to sleep or slept in a [place] health care facility (including now)? 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 - 12/27/2024 3:30 PM CDT Ms. 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 The patient has done well since surgery without evidence recurrence. She is doing well without any new urologic issues. She has no symptoms of pyelonephritis. 1. Status post radical cystectomy with ileal conduit urinary diversion I reviewed the situation with the patient. I discussed her test results. I discussed how she is doing. I answered her questions. We will continue close surveillance as per our protocol. Follow-up in 6 months. documented in this encounter Plan of Treatment Scheduled Orders Name Type Priority Associated Diagnoses Order Schedule CBC without Differential Lab Add-On Malignant Neoplasm Of Bladder (HCC) Expected: 12/27/2024, Expires: 03/29/2026 Cytology Non-TIRE TECHNICIAN Pathology and Cytology Routine Malignant Neoplasm Of Bladder (HCC) Expected: 06/29/2025 (Approximate), Expires: 12/27/2025 Vitamin B12 Assay Lab Routine Malignant Neoplasm Of Bladder (HCC) Expected: 06/29/2025 (Approximate), Expires: 12/27/2025 CBC without Differential Lab Routine Malignant Neoplasm Of Bladder (HCC) Expected: 06/29/2025 (Approximate), Expires: 03/29/2026 Basic Metabolic Panel Lab Routine Malignant Neoplasm Of Bladder (HCC) Expected: 06/29/2025 (Approximate), Expires: 12/27/2025 CT Urogram without and with IV Contrast Imaging RAD - Routine (most inpatients and all outpatients) Malignant Neoplasm Of Bladder (HCC) Expected: 06/29/2025 (Approximate), Expires: 12/27/2025 CT Chest without IV Contrast Imaging RAD - Routine (most inpatients and all outpatients) Malignant Neoplasm Of Bladder (HCC) Expected: 06/29/2025 (Approximate), Expires: 03/29/2026 Cystatin C with Estimated GFR Lab Routine Malignant Neoplasm Of Bladder (HCC) Expected: 06/29/2025 (Approximate), Expires: 03/29/2026 URO Stoma care Procedure Routine Malignant Neoplasm Of Bladder (HCC) Expected: 06/29/2025 (Approximate), Expires: 03/29/2026 Scheduled Referrals Name Type Priority Associated Diagnoses Orde r Schedule Urology office visit (clinic) Outpatient Referral Routine Expected: 06/29/2025 (Approximate), Expires: 03/29/2026 documented as of this encounter Visit Diagnoses Diagnosis Malignant Neoplasm Of Bladder (HCC)- Primary documented in this encounter Care Teams Movie Projectionist Relationship Specialty Start Date End Date Elsewhere, Pcp PCP - General Internal Medicine 03/13/23 documented as of this encounter
--- OUTSIDE RECORDS SUMMARY | 2025-01-17 12:10 | XMS_ITS ---
Author Organization [facility] Address [address] [place] [address] Care Team Providers Care Ordnance Keeper Name Role Phone Elsewhere, Pcp Primary Care Provider Unavailabl e Active Problems * This document contains information received from the source organization and may not represent a complete record from that organization. 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 Past Treatment and Therapy Plans No past plan information found. Radiation Treatments * Course 1bVaginal Cuff 05/06/2023 - 05/16/2023 Treatment Period Energy Fraction Dose Fractions Total Dose Plans Planned [id number] 05/13/2023 - 05/16/2023 700 cGy 3 / 3 2,100 cGy Reference Points Delivered DPV HDR 05/13/2023 - 05/16/2023 2,100 cGy * Course 1 B Vaginal Cuff 05/06/2023 - 05/06/2023 Treatment Period Energy Fraction Dose Fractions Total Dose Plans Planned [id number] 05/06/2023 - 05/06/2023 700 cGy 1 / 3 2,100 cGy Reference Points Delivered DPV HDR 05/06/2023 - 05/06/2023 700 cGy
--- OUTSIDE RECORDS SUMMARY | 2025-01-17 12:10 | XMS_ITS | Encounter Summary ---
Author Organization [facility] Address [address] [place] [address] Care Team Providers Care Rig Hand Name Role Phone Elsewhere, Pcp Primary Care Provider Unavailabl e Reason for Referral * MRI/CAT/PET Scan (Routine) - Closed Specialty Diagnoses / Procedures Referred By Contac t Referred To Contact Radiology Diagnoses Malignant Neoplasm Of Bladder (HCC) Procedures CT Chest with IV Contrast CT Chest without IV Contrast Bart Greene M.D. [address] [place] [address] Phone: tel: fax: [facility] Referral ID Status Reason Start Date Expiration Date Visits Re quested Visits Authorized [id number] Closed 08/04/2024 08/04/2025 1 1 * MRI/CAT/PET Scan (Routine) - Closed Specialty Diagnoses / Procedures Referred By Contac t Referred To Contact Radiology Diagnoses Malignant Neoplasm Of Bladder (HCC) Procedures CT Urogram without and with IV Contrast Bart Greene M.D. [address] [place] [address] Phone: tel: fax: [facility] Referral ID Status Reason Start Date Expiration Date Visits Re quested Visits Authorized [id number] Closed 08/04/2024 08/04/2025 1 1 Reason for Visit * MRI/CAT/PET Scan (Routine) - Closed Specialty Diagnoses / Procedures Referred By Contpaul t Referred To Contact Radiology Diagnoses Malignant Neoplasm Of Bladder (HCC) Procedures CT Urogram without and with IV Contrast Bart Greene M.D. [address] [place] [address] Phone: tel: fax: [facility] Referral ID Status Reason Start Date Expiration Date Visits Re quested Visits Authorized [id number] Closed 08/04/2024 08/04/2025 1 1 Encounter Details Date Type Department Care Team (Latest Contact Info) Description 12/27/2024 8:52 AM CDT - 12/27/2024 11:59 PM CDT Hospital Encounter Department of Radiology, [facility], in [place], [place] [address] [place] [address] Bart Greene M.D. [address] [place] [address] Malignant Neoplasm Of Bladder (HCC) Discharge Disposition: [...] often do you attend chur ch or confucianism services? More than 4 times per year 03/13/2023 Do you belong to any clubs o r organizations such as buddhist groups, unions, fraternal or athletic groups, or [...] and heating? 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 Gender Identity Female 03/13/2023 3:04 PM CDT [...] as of this encounter Plan of Treatment Scheduled Orders Name Type Priority Associated Diagnoses Orde r Schedule Creatinine, POCT Point of Care Testing-Docked Device Routine Routine lab collecti on (next collection) for 1 Occurrences starting 12/27/2024 until 12/27/2024 documented as of this encounter Procedures Procedure Name Priority Date/Time Associated Diagnosis Comments CT UROGRAM WITHOUT AND WITH IV CONTRAST RAD - Routine (most inpatients and all outpatients) 12/27/2024 10:06 AM CDT Malignant Neoplasm Of Bladder (HCC) CT CHEST WITH IV CONTRAST RAD - Routine (most inpatients and all outpatients) 12/27/2024 10:06 AM CDT Malignant Neoplasm Of Bladder (HCC) CREATININE, POCT, B Routine 12/27/2024 9:18 AM CDT CREATININE, POCT, B Routine 12/27/2024 9:18 AM CDT documented in this encounter Results * CT Chest with IV Contrast (12/27/2024 10:06 AM CDT) Anatomical Region Laterality Modality Chest, Thoracic RST LOS, Tho racic ARZ LOS, Thoracic ARZ LOS, Thoracic FLA LOS N/A Computed Tomography, Compute d Tomography 12/27/2024 9:54 AM CDT Impressions 12/27/2024 10:33 AM CDT 1. Similar previously-increasing 3 mm right middle lobe nodule. 2. New 2 mm right lower lobe nodule. 3. Remainder of the chest CT findings are unchanged. Narrative 12/27/2024 10:33 AM CDT EXAM: CT CHEST WITH IV CONTRAST COMPARISON: Chest CT 08/04/2024. FINDINGS: This examination was performed in conjunction with a CT of the abdomen, which will be reported separately. Similar previously-increasing 3 mm lateral right middle lobe nodule (3/414). New 2 mm nodule right lower lobe (3/377). Several unchanged tiny bilateral pulmonary nodules. Scattered peripheral endobronchial plugging. Similar lower lung predominant interstitial lung abnormality characterized by peripheral reticulation, architectural distortion, and traction bronchiectasis/bronchiolectasis. Presumed mild radiation fibrosis anterior right lung. Biapical scarring. Scattered additional areas of atelectasis/scarring. Similar mildly patulous mid and distal esophagus. No enlarged thoracic lymph nodes. Atherosclerotic arterial calcifications, including mild coronary. Mitral annular calcification. Unchanged prominence of the ascending aorta at 39-40 mm. Hypertrophic and degenerative changes spine. Degenerative change right shoulder. PO change right breast and axilla. Procedure Note Rufina Mancera M.D. - 12/27/2024 EXAM: CT CHEST WITH IV CONTRAST COMPARISON: Chest CT 08/04/2024. FINDINGS: This examination was performed in conjunction with a CT of the abdomen,which will be reported separately. Similar previously-increasing 3 mm lateral right middle lobe nodule(3/414). New 2 mm nodule right lower lobe (3/377). Several unchanged tinybilateral pulmonary nodules. Scattered peripheral endobronchial plugging. Similar lower lungpredominant interstitial lung abnormality characterized by peripheralreticulation, architectural distortion, and tractionbronchiectasis/bronchiolectasis. Presumed mild radiation fibrosis anterior right lung. Biapical scarring. Scattered additional areas ofatelectasis/scarring. Similar mildly patulous mid and distal esophagus. No enlarged thoraciclymph nodes. Atherosclerotic arterial calcifications, including mild coronary. Mitralannular calcification. Unchanged prominence of the ascending aorta at39-40 mm. Hypertrophic and degenerative changes spine. Degenerative change rightshoulder. PO change right breast and axilla. IMPRESSION: 1. Similar previously-increasing 3 mm right middle lobe nodule. 2. New 2 mm right lower lobe nodule. 3. Remainder of the chest CT findings are unchanged. us Bart Greene M.D. [facility] CT PROCEDURES Final Res ult * CT Urogram without and with IV Contrast (12/27/2024 10:06 AM CDT) Anatomical Region Laterality Modality Abdomen, Pelvis, Abdominal R ST LOS, Abdominal ARZ LOS, Abdominal FLA LOS N/A Computed Tomograp hy, Computed Tomography 12/27/2024 10:0 1 AM CDT Impressions 12/27/2024 12:51 PM CDT 1. Focal area of hypodensity in the left kidney probably represents focal pyelonephritis. 2. No evidence of recurrence or metastases in abdomen or pelvis. 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 Ill-defined focal hypodensity in the midpole of the left kidney (series 4/image 38) probably represents focal pyelonephritis. Otherwise bilateral symmetric nephrograms with prompt excretion of contrast into the ileal conduit without obstruction. Mild prominence of the bilateral renal pelvis, greater on left than right is unchanged. Segment of left mid-distal ureter is not well opacified. Otherwise no suspicious filling defect. No suspicious lymphadenopathy. Tiny hepatic cyst/hemangioma. Spleen, pancreas and gallbladder are within normal limits. Mild bilateral adrenal thickening. Postoperative changes of pelvic lymphadenectomy. Curvature and degenerative changes in the spine, bilateral SI and hip joints. Demineralization. This examination was performed in conjunction with a CT of the chest, which will be reported separately. Procedure Note Donald Martin M.B.B.S., Yessica - 12/27/2024 EXAM: CT UROGRAM WITHOUT AND WITH IV CONTRAST COMPARISON: Compared to CT 08/04/2024 FINDINGS: Postoperative changes of radical cystectomy, ileal conduiturinary diversion with right lower quadrant urostomy. Ill-defined focalhypodensity in the midpole of the left kidney (series 4/image 38) probablyrepresents focal pyelonephritis. Otherwise bilateral symmetric nephrograms with prompt excretion ofcontrast into the ileal conduit without obstruction. Mild prominence ofthe bilateral renal pelvis, greater on left than right is unchanged.Segment of left mid-distal ureter is not well opacified. Otherwise no suspicious filling defect. No suspiciouslymphadenopathy. Tiny hepatic cyst/hemangioma. Spleen, pancreas and gallbladder are withinnormal limits. Mild bilateral adrenal thickening. Postoperative changes ofpelvic lymphadenectomy. Curvature and degenerative changes in the spine, bilateral SI and hipjoints. Demineralization. This examination was performed in conjunction with a CT of the chest,which will be reported separately. IMPRESSION: 1. Focal area of hypodensity in the left kidney probably represents focalpyelonephritis. 2. No evidence of recurrence or metastases in abdomen or pelvis. Bart Greene M.D. IMG CT PROCEDURES Final Res ult * Creatinine, POCT (12/27/2024 9:18 AM CDT) [facility] Creatinine, POCT, B 0.9 0.6 - 1.0 mg/dL 12/27/2024 9:23 AM CDT PCDT Comment: ----ADDITIONAL INFORMATION---- Performed at the Point of Care Blood 12/27/2024 9:18 AM CDT 12/27/2024 9:23 AM CDT Unknown Provider LAB POCT ORDERABLES - DEVICE Fi nal Result [facility] PERFORMING LABS [address] [place] [address], [facility] PCDT [facility] POC [address] [place] [address] * Creatinine, POCT (12/27/2024 9:18 AM CDT) Pathologist [facility] Estimated GFR (eGFR), POCT 61 >=60 mL/min/BSA 12/27/2024 9:23 AM CDT PCDT Comment: Estimated GFR calculated using the 2020 CKD_EPI creatinine equation. Blood 12/27/2024 9:18 AM CDT 12/27/2024 9:23 AM CDT us Unknown Provider LAB POCT ORDERABLES - DEVICE Fi nal Result [facility] PERFORMING LABS [address] [place] [address], [facility] PCDT [facility] [place] POC [address] [place] [address] documented in this encounter Visit Diagnoses Diagnosis Malignant Neoplasm Of Bladder (HCC) documented in this encounter Administered Medications Inactive Administered Medications - up to 3 most recent administrations Medication Order MAR Action Action Date Dose Rate Site iohexoL 300 mg iodine/mL solution 1-200 mL (Omnipaque) 1-200 mL, intravenous, Once in imaging, contrast, Starting on Fri12/27/24 at 0917, For 1 dose, Imaging Protocol Orders, Dose per Radiant Medication Guidelines Given 12/27/2024 9:39 AM CDT 100 mL sodium chloride (PF) 0.9 % injection 1-100 mL 1-100 mL, intravenous, Once, On 12/27/24 at 0945, For 1 dose, Imaging Protocol Orders, Dose per Radiant Medication Guidelines Given 12/27/2024 9:40 AM CDT 50 mL documented in this encounter Care Teams Rig Hand Relationship Specialty Start Date End Date Elsewhere, Pcp PCP - General Internal Medicine 03/13/23 documented as of this encounter
--- OUTSIDE RECORDS SUMMARY | 2025-01-17 12:10 | XMS_ITS | Clinical Summary ---
Author Organization [facility] Address [address] [place] [address] Care Team Providers Care Loss Prevention Supervisor Name Role Phone Elsewhere, Pcp Primary Care Provider Unavailabl e Source Comments Patient records contain information from all sites at [facility]. For routine questions regarding patient records, call [phone] during business hours, M-F 8:00 AM - 5:00 PM Central Time. Record requests for emergency care only can be directed to [phone] at any time.[facility] Allergies No known active allergies Medications * This document contains information received from the source organization and may not represent a complete record from that organization. lovastatin (MEVACOR) 10 mg tablet Take 5 mg by mouth daily with dinner. (Takes 1/2 tab) 01/30/20 23 Active acetaminophen (TYLENOL) 500 mg tablet Take 1 tablet (500 mg total) by mouth every 6 (six) hours as needed for pain. 03/25/20 23 Active gabapentin (NEURONTIN) 100 mg capsule Take 200 mg by mouth 3 (three) times a day. 04/24/20 23 Active zinc gluconate 30 mg tablet Take 30 mg by mouth 2 (two) times a week. Active CALCIUM CITRATE-VITAMI N D3 ORAL Take 1 tablet by mouth daily. Active yifan.stocki ng,thigh,reg,m ed misc Active DME Ostomy suppliesIndica tions:Malignan t Neoplasm Of Bladder (HCC) DME Order 1 Unspecified 11 07/23/20 24 Active cyanocobalamin (vitamin B-12) 100 mcg tablet Take 100 mcg by mouth 3 (three) times a week. 07/02/20 24 Active estradioL (Estrace) 0.1 mg/g (0.01%) vaginal cream Insert 500 mg intravaginally twice weekly. 12/22/19 25 Active DULoxetine (Cymbalta) [address] capsule Take 1 capsule by mouth daily. 12/02/19 25 Active donepeziL (Aricept) 10 mg tablet Take 10 mg by mouth at bedtime. 11/26/19 25 025 Active aspirin [address] tablet Take 81 mg by mouth daily. Active amLODIPine (Norvasc) 2.5 mg tablet Take 1 tablet by mouth daily. 12/22/19 25 Active lubiprostone (Amitiza) 8 mcg capsule Take 8 mcg by mouth. Not started yet 12/22/19 25 Active DOCUSATE SODIUM ORAL Take by mouth daily. 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 Follow-up Orders; Lab Question 12/29/2024 Clinical Communication Department of Urology in [place], [place] [address] [place] [phone] Chavez Ferrer M.D. After Visit Question 12/27/2024 3:30 PM CDT Office Visit Department of Urology in [place], [place] [address] [place] [phone] Chavez Ferrer M.D. Malignant Neoplasm Of Bladder (HCC) (Primary Dx) 12/27/2024 1:20 PM CDT Office Visit Department of Oncology in [place], [place] [address] [place] [phone] Estrellita Turner APRN, C.NMaria Ines., M.S.N. Malignant Neoplasm Of Endometrium (HCC) (Primary Dx) 12/27/2024 8:52 AM CDT - 12/27/2024 11:59 PM CDT Hospital Encounter Department of Radiology, [facility], in [place], [place] [address] [place] [phone] Bart Greene M.D. Malignant Neoplasm Of Bladder (HCC) Discharge Disposition: Home or Self Care 12/27/2024 8:31 AM CDT - 12/27/2024 8:51 AM CDT Hospital Encounter Department of Laboratory Medicine and Pathology, [facility] in [place], [place] [address] [place] [phone] Bart Greene M.D. Malignant Neoplasm Of Bladder (HCC) Discharge Disposition: Home or Self Care 12/24/2024 12:00 PM [facility] Clinical Communication Virtual Review in [place], [place] [address] [place] [address] Pre-visit Intake 11/09/2024 Clinical Communication Department of Urology in [place], [place] [address] [place] [phone] Chavez Ferrer M.D. Phone Call from Last 3 Months Family History Medical [...] How often do you attend chur or roman catholic services? More than 4 times per year 03/13/2023 Do you belong to any clubs o r organizations such as quaker groups, unions, fraternal or athletic groups, or [...] [facility] of Occupat ional Health - Occupational Stress [...] place to sleep or slept in a chcf (including now)? 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 Gender Identity Female 03/13/2023 3:04 PM CDT [...] Mass Index 22.14 12/27/2024 1:04 PM CDT Plan of Treatment Health Maintenance Due Date Last Done Comments Depression Screening (Annual PHQ-2) 10/20/2024 Fall Risk Screen (Annual) 10/20/2024 COVID-19 Vaccine (10 - Pfizer risk season) 2025 09/30/2024, 01/15/2024, 08/08/2023, Additional history exists DTaP,Tdap,and Td Vaccines (4 - Td or Tdap) 12/28/2027 12/27/2017, 12/26/2017, 04/19/2011 Pneumococcal vaccine (50+ years) Completed 01/24/2015, 09/24/2013 Zoster Vaccines Completed 10/08/2018, 07/20, 10/19/2012 RSV vaccine - (32-36 weeks) or 60+ years Completed 12/26/2023 Influenza Vaccine Completed 09/07/2024, , 08/07/2022, Additional history exists HPV Vaccines Aged Out No longer eligi ble based on patient's age to complete this topic IPV Vaccines Aged Out No longer eligi ble based on patient's age to complete this topic Medical Devices Implanted Type Area Spiral Winding Machine Helper Device Identifier Shelf Expiration Date Model / Serial / Lot Clp Hrzn Ti 24 Clp Casey - [id number] Implanted:Qt y: 2 on 03/20/2023 by Chavez Ferrer M.D. at [facility] Hardware e.g. pins/screws /rods N/A: [employer] [id number] / / Clp Hrzn Ti 6 Clp Lg Orng - [id number] Implanted:Qt y: 9 on 03/20/2023 by Chavez Ferrer M.D. at [facility] Hardware e.g. pins/screws /rods N/A: [employer] [id number] / / Stnt Uret Cls Tp Srg [id number] - [id number] Implanted:Qt y: 1 on 03/20/2023 by Chavez Ferrer M.D. at [facility] Ureteral Stent Ureter [facility] Susy [id number] 01/28/2027 [id number] / / [id number] Description:2 ureter stents in package; implanted Procedures Procedure Name Priority Date/Time Associated Diagnosis Comments CT CHEST WITH IV CONTRAST RAD - Routine (most inpatients and all outpatients) 12/27/2024 10:06 AM CDT Malignant Neoplasm Of Bladder (HCC) CT UROGRAM WITHOUT AND WITH IV CONTRAST RAD - Routine (most inpatients and all outpatients) 12/27/2024 10:06 AM CDT Malignant Neoplasm Of Bladder (HCC) CREATININE, POCT, B Routine 12/27/2024 9 :18 AM CDT CREATININE, POCT, B Routine 12/27/2024 9 :18 AM CDT VITAMIN B12 ASSAY, S Routine 12/27/2024 8:47 AM CDT Malignant Neoplasm Of Bladder (HCC) COMPREHENSIVE METABOLIC PANEL, S/P Routine 12/27/2024 8:47 AM CDT Malignant Neoplasm Of Bladder (HCC) from Last 3 Months Results * CT Urogram without and with IV [...] recurrence or metastases in abdomen or pelvis. us Bart Greene M.D. IMBaldo CT PROCEDURES Final Res ult * CT Chest with IV Contrast (12/27/2024 [...] findings are unchanged. us Bart Greene M.D. IMG CT PROCEDURES Final Res ult * Creatinine, POCT (12/27/2024 9:18 AM CDT) Only the most recent of2 resultswithin the time period is included. Creatinine, POCT, B 0.9 0.6 - 1.0 mg/dL 12/27/2024 9:23 AM CDT PCDT Comment: ----ADDITIONAL INFORMATION---- Performed at the Point of Care Blood 12/27/2024 9:18 AM CDT 12/27/2024 9:23 AM CDT [facility] Provider LAB POCT ORDERABLES - DEVICE Fi nal Result [facility] PERFORMING LABS [address] [place] [address], [facility] PCDT [facility] [address] [place] [address] * Vitamin B12 Assay (12/27/2024 8:47 AM CDT) Pathologist [facility] Vitamin B12 Assay, S [phone] - [...] M.D. LAB BLOOD ADD-ON Final Resu lt [facility] [address] [place] [address], [place] DTL [facility] [address] [place] [address] * (ABNORMAL) Comprehensive Metabolic Panel (12/27/2024 8:47 AM CDT) [facility] Potassium, S 4.6 3.6 - 5.2 mmol/L [...] M.D. LAB BLOOD ADD-ON Final Resu lt [facility] [address] [place] [address], [place] DTL [facility] [address] [place] [address] from Last 3 Months Insurance MEDICARE [facility] Care Teams Loss Prevention Supervisor Relationship Specialty Start Date End Date Elsewhere, Pcp PCP - General Internal Medicine 03/13/23
--- OUTSIDE RECORDS SUMMARY | 2025-01-17 12:10 | XMS_ITS | Encounter Summary ---
Author Organization [facility] Address [address] [place] [address] Care Team Providers Care Sheet Metal Worker Supervisor Name Role Phone Elsewhere, Pcp Primary Care Provider Unavailabl e Reason for Visit * Reason Onset Date Comments Pre-visit Intake 12/24/2024 * Appointment Request (Routine) - Authorized Specialty Diagnoses / Procedures Referred By Fidel bell Referred To Contact Urology Referral ID Status Reason Start Date Expiration Date V isits Requested Visits Authorized [id number] Authorized 10/11/2024 10/11/2025 1 1 Encounter Details Date Type Department Care Team (Latest Contact Info) Description 12/24/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
[2025-01-17 12:30] VITALS: BP 150/88; PULSE 70; RESP 16; TEMP 36.9; O2SAT 99; BMI 21.0
--- NOTE | 2025-01-17 13:16 | ED_ITS ---
HPI - General Adult General Date Seen: 01/17/25 Chief complaint: Allergic Reaction Stated complaint: allergic reaction to new RX? Time Seen by Provider: 01/17/25 12:49 Source: patient Mode of arrival: ambulatory Limitations: no limitations History of Present Illness HPI narrative: Patient is an 89-year-old female presenting to the emergency department for concern of allergic reaction to her gabapentin. She states she has been taking the gabapentin pill for a while now but recently switched to the liquid as she is having difficulty swallowing pills. Take the liquid for the 1st time today and after she took it she states it is apprised her and she had ago drink water right away. She told her she felt like something was swollen afterwards. Symptoms have since fully resolved. Denies any associated shortness of breath, chest pain, fevers, chills, abdominal pain, nausea, rash, lightheadedness. Has never had symptoms like this before. She now thinks she was likely so apprised by the taste of the medicine. Related Data Home Medications ?Medication ?Instructions ?Recorded ?Confirmed calcium carbonate 1,000 mg PO QDAY 05/15/22 01/17/25 cyanocobalamin (vitamin B-12) PO 07/02/24 12/25/24 duloxetine 20 mg capsule,delayed 20 mg PO DAILY 01/17/25 01/17/25 release gabapentin 250 mg/5 mL oral mg 01/17/25 solution Previous Rx's ?Medication ?Instructions ?Recorded lovastatin 10 mg tablet 5 mg (1/2 x 10 mg) PO QDAY 05/17/22 Hyperlipidemia #90 tabs gabapentin 100 mg capsule 100 - 200 mg (1 - 2 x 100 mg) PO 03/07/23 QID Neuropathy #90 caps cyclobenzaprine 5 mg tablet 5 mg PO BID PRN muscle spasm #10 07/24/24 tabs Allergies Allergy/AdvReac Type Severity Reaction Status Date / Time No Known Allergies Allergy Verified 01/17/25 12:39 Review of Systems Status of ROS: Reports: 10 or more systems reviewed and unremarkable except as noted in History and below [facility] Medical History Vaginitis ?N76.0 - Acute vaginitis (ICD-10) UTI (urinary tract infection) ?N39.0 - Urinary tract infection, site not specified (ICD-10) Health care directive on file ?Z78.9 - Other specified health status (ICD-10) Loose stools ?R19.5 - Other fecal abnormalities (ICD-10) Trochanteric bursitis, right hip ?M70.61 - Trochanteric bursitis, right hip (ICD-10) Surgical History History of appendectomy (04/19/11) ?Z90.49 - Acquired absence of other specified parts of digestive tract (ICD- 10) Social History Narrative: health care directive on file- health care directive completed on 06/28/20 and sent for scanning on 07/07/20. Smoking Status: Never smoker Do you use any of these nicotine containing products: None Second hand tobacco smoke exposure: No How often do you have a drink containing alcohol: 2-3 times a week AUDIT-C Alcohol total score: 3 Non-prescribed substance use: denies use Exam Narrative: Exam Narrative: Const: Well-nourished, Well-developed, in no distress Eyes: PERRL, no conjunctival injection, and symmetrical lids HENT: Atraumatic external nose and ears. Moist mucous membranes. Neck: Symmetric, trachea midline, No thyromegaly. CVS: RRR, No murmurs or gallops. Peripheral pulses 2+ and equal in all extremities RESP: Unlabored respiratory effort. Clear to auscultation bilaterally. GI: Nontender/Nondistended, No rebound or guarding. MSK:Extremities w/o deformity, Normal Active ROM Skin: Warm, Dry. No rashes or lesions. Neuro: Normal Muscle tone, No focal neurological deficits. Psych: Awake, Alert, & Oriented x3. Appropriate mood and affect. Const: Vital Signs, click to edit/add: Vital Signs - 24 hr 01/17/25 12:30 Temperature 98.4 F Pulse Rate [Pulse Oximeter] 70 Respiratory Rate 16 Blood Pressure [Ri ght Upper Arm] 150/88 H Pulse Oximetry 99 Oxygen Delivery Me thod Room Air Course Vital Signs Vital signs: Initial Vital Signs Temperature 98.4 F 01/17/25 12:30 Temperature Source Temporal Artery Scan 01/17/25 12:30 Pulse Rate 70 01/17/25 12:30 Respiratory Rate 16 01/17/25 12:30 Blood Pressure 150/88 H 01/17/25 12:30 Blood Pressure Mean 108 H 01/17/25 12:30 Blood Pressure Position Sitting 01/17/25 12:30 Pulse Oximetry 99 01/17/25 12:30 Oxygen Delivery Method Room Air 01/17/25 12:30 Vital Signs Temperature 98.4 F 01/17/25 12:30 Pulse Rate 70 01/17/25 12:30 Respiratory Rate 16 01/17/25 12:30 Blood Pressure 150/88 H 01/17/25 12:30 Pulse Oximetry 99 01/17/25 12:30 Oxygen Delivery Method Room Air 01/17/25 12:30 Temperature 98.4 F 01/17/25 12:30 Pulse Rate 70 01/17/25 12:30 Respiratory Rate 16 01/17/25 12:30 Blood Pressure 150/88 H 01/17/25 12:30 Pulse Oximetry 99 01/17/25 12:30 Oxygen Delivery Method Room Air 01/17/25 12:30 Medical Decision Making [facility] Narrative Medical decision making narrative: Patient is a 89-year-old female presenting to emergency department for concern of allergic reaction. At this time I see no signs of allergic reaction my exam. Prescription for symptoms also do not sound acutely like allergic reaction. It does seem like she was just not prepared for the taste of the medication. States his she felt like something was swollen a but ordered the never had any shortness of breath discomfort or chest pain associated with this and she does states her esophagus felt weird. At this time I believe she is safe for discharge. She is agreeable to this plan. Discharge Plan Discharge Clinical Impression: Feared condition not demonstrated Patient Disposition: Home, Self-Care Condition: Stable Instructions: Allergy Testing (ED) Additional Instructions: Your symptoms do not seem consistent with allergic reaction but I do recommend calling your primary care provider before continuing to take the medication. Return for new or worsening symptoms. Prescriptions: No Action gabapentin 250 mg/5 mL solution Patient Comments: [NO ORIGINAL SIG] duloxetine 20 mg capsule,delayed release(DR/EC) 20 mg PO DAILY cyanocobalamin (vitamin B-12) PO Patient Comments: 3 times a week cyclobenzaprine 5 mg tablet 5 mg PO BID PRN (Reason: muscle spasm) Qty: 10 0RF calcium carbonate 500 mg calcium (1,250 mg) tablet 1,000 mg PO QDAY lovastatin 10 mg tablet 5 mg PO QDAY Qty: 90 3RF gabapentin 100 mg capsule 100 - 200 mg PO QID Qty: 90 3RF Rx Instructions: 100mg TID and 200mg at HS Follow Up/Referrals: Gisel Mullen PA-C [Primary Care Provider] - Stand Alone Forms: MyHealth Info Instructions
--- OUTSIDE RECORDS SUMMARY | 2025-01-17 13:23 | XMS_ITS | Clinical Summary ---
Author Organization [facility] Address [address] [place] [address] Care Team Providers Care Outside Energy Sales Representatives Name Role Phone Gisel Mullen Primary Care Provider [phone] Allergies No known active allergies Medications cholecalciferol [...] Type Department Care Team Description 01/17/[address] [facility] [address] [facility] [address] Gisel Mullen PA Questions (returning call) 01/17/[address] [facility] [address] [place] [address] [address] Gisel Mullen PA Throat Pain/problem 01/12/2025 Orders Only [facility] Scanner 1 scan: (1-Ord) [facility] , 01/12/2025 01/12/[address] [facility] [address] [place] [address] [address] Gisel Mullen PA <No scans attached> 01/10/2025 2:30 PM CDT Nurse/Clinic Staff Only [facility] [address] [place] [address] Lab (Outside lab orders) 01/10/2025 Travel 01/10/[address] [address] [facility] [place] [address] Gisel Mullen PA Medication Management 01/07/[address] [facility] [address] [facility] [place] [address] Gisel Mullen PA Lab (urine) 12/25/2024 Nurse Triage [address] [place] [address] Gisel Mullen PA Hand Pain/problem 12/24/[address] [address] Torrie Marina, DO Questions (/) 12/21/2024 10:30 AM BANDER AND CELLOPHANER HELPER MACHINE Telemedicine [address] [place] [address] Gisel Mullen PA Results (MRI-discuss quality of life with current conditions); Telehealth (Virtual visit, no vitals taken) 12/20/[address] [address] Gisel Mullen PA Questions 12/19/2024 Travel 12/17/[address] [address] Gisel Mullen PA Results 12/16/[address] [address] [place] [address] Gisel Mullen PA Dysphagia 12/13/2024 2:00 PM BANDER AND CELLOPHANER HELPER MACHINE Ancillary Procedure [address] [address] 12/13/2024 10:15 AM BANDER AND CELLOPHANER HELPER MACHINE Office Visit [facility] [address] [place] [address] Torrie Marina, DO Throat Problem (happened last night- feels like pill is stuck in throat/) 12/13/2024 Travel 12/13/[address] [facility] [address] [place] [address] Gisel Mullen PA Throat Problem 12/09/2024 Travel 12/07/2024 2:13 PM BANDER AND CELLOPHANER HELPER MACHINE - 12/07/2024 11:59 PM BANDER AND CELLOPHANER HELPER MACHINE Hospital Encounter [address] [address] Jayden Singh MD Burns, Kayla A, OT Memory loss 12/07/2024 Travel 12/02/2024 1:30 PM BANDER AND CELLOPHANER HELPER MACHINE Office Visit [facility] [address] [place] [address] Gisel Mullen PA Abdominal Pain (Low abdominal pain below naval, both sides, not concerning according to [place] but pt states it comes and goes and is very painful-affecting life) 12/02/2024 Travel 11/26/2024 Orders Only [facility] [address] [place] [address] Jayden Singh MD <No scans attached> 11/26/2024 Telephone [facility] [address] [place] [address] Jayden Singh MD Questions 11/26/[address] [facility] [address] [place] [address] Gisel Mullen PA Error-please disregard 11/24/[address] [facility] [address] [place] [address] Gisel Mullen PA Abdominal Pain 11/22/[address] [address] [place] [address] Gisel Mullen PA Questions; Cognitive Impairment 11/18/2024 1:10 PM BANDER AND CELLOPHANER HELPER MACHINE Office Visit [facility] [address] [place] [address] Gisel Mullen PA Vaginal Problem (Urology provider wanted her to come in for a vaginal swab) 11/17/2024 Travel 11/16/2024 3:20 PM BANDER AND CELLOPHANER HELPER MACHINE Office Visit [facility] [address] [place] [address] Jayden Singh MD Consult (Memory loss/Referred by KORIN Salinas ) 11/16/2024 Travel 11/08/2024 3:10 PM BANDER AND CELLOPHANER HELPER MACHINE Telemedicine [facility] [address] [place] [address] Gisel Mullen PA Telehealth (Virtual visit, no vitals taken); Vaginal Problem (Having some pain in abdomen but has has been since bladder was removed-having a 'wetness' or vaginal discharge-yellow in color-notices this on her pads-wiping is normal) 11/08/2024 Travel 11/03/[address] [facility] [address] [place] [address] Gisel Mullen PA Questions 11/03/[address] [facility] [address] [place] [address] Gisel Mullen PA 11/02/[address] [facility] [address] [place] [address] Gisel Mullen PA Constipation from Last 3 [...] on file Legal Sex Female 6:25 AM BANDER AND CELLOPHANER HELPER MACHINE Gender Identity Not on file Sexual Orientation Not on file Obstetrics History Last Filed Vital Signs Vital Sign Reading Time Taken Comments Blood Pressure 170/78 12/13/2024 10:25 AM BANDER AND CELLOPHANER HELPER MACHINE Pulse 71 12/13/2024 10:25 AM BANDER AND CELLOPHANER HELPER MACHINE Temperature 36.6 C (97.9 F) 03/15/2024 1:14 PM CDT Respiratory Rate 14 03/15/2024 1:14 PM CDT Oxygen Saturation 98% 12/13/2024 10: 25 AM BANDER AND CELLOPHANER HELPER MACHINE Inhaled Oxygen Concentration - - Weight 51.2 kg (112 lb 12.8 oz) 025 10:25 AM BANDER AND CELLOPHANER HELPER MACHINE Height 155.3 cm (5' 1.14) 04/24/2023 2:47 PM CD T Body Mass Index 21.21 04/24/2023 2:47 PM CDT Plan of Treatment Upcoming Encounters Date Type Department Care Team (Late st Contact Info) Description 01/24/2025 10:30 AM CDT Office Visit [facility] [address] [place] [address] Gisel Mullen PA [address] [place] [address] Health Maintenance Due Date Last Done Comments [...] age 65+ Completed 2019 ([facility]) RSV vaccine for adults or Completed 12/26/2023 Influenza Vaccine Completed 09/07/2024, , 08/17/2019, Additional history exists Procedures Procedure Name Priority Date/Time Associated Diagnosis Comments SCAN-RADIOLOGY REPORT 01/12/2025 12:00 AM CDT MR PELVIS WWO Routine 12/13/2024 5:10 PM BANDER AND CELLOPHANER HELPER MACHINE Chronic abdominal pain Chronic pelvic pain in female Vaginal discharge TRICHOMONAS, YOCASTA, AND BACTERIAL VAGINOSIS BY GUSTAVO Routine 11/18/2024 2:13 PM BANDER AND CELLOPHANER HELPER MACHINE Vaginal discharge from Last 3 Months Results * SCAN-RADIOLOGY REPORT (01/12/2025 12:00 AM CDT) Anatomical Region Laterality Modality Other us Scanner OTHER Final Result * MR PELVIS WWO (12/13/2024 5:10 PM BANDER AND CELLOPHANER HELPER MACHINE) Anatomical Region Laterality Modality Pelvis Magnetic Resonan ce 12/15/2024 10:4 5 AM BANDER AND CELLOPHANER HELPER MACHINE Addenda Addendum by Yaw Mendez MD on 12/15/2024 1:42 PM BANDER AND CELLOPHANER HELPER MACHINE For Patients: As a result of the [...] edema in the lower abdominal wall. 4. 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 5. Remainder unremarkable. Dictated by Yaw Mendez MD @ 12/15/2024 1:42:15 PM (Electronically Signed) Narrative 12/15/2024 10:45 AM BANDER AND CELLOPHANER HELPER MACHINE For Patients: As a result of the [...] the posterior aspects of the SI joints, [id number]-[id number]-left. No other bony or soft tissue abnormalities [...] to the posterior aspects of the SIjoints, daxag-[id number]-gzth-left. No other bony or soft tissue abnormalities [...] BACTERIAL VAGINOSIS BY GUSTAVO (11/18/2024 2:13 PM BANDER AND CELLOPHANER HELPER MACHINE) YOCASTA SPECIES Negative Negative 3:18 PM BANDER AND CELLOPHANER HELPER MACHINE [facility] YOCASTA GLABRATA Negative Negative 11/19/2024 3:18 PM BANDER AND CELLOPHANER HELPER MACHINE [facility] TRICHOMONAS VVA Negative Negative 3:18 PM BANDER AND CELLOPHANER HELPER MACHINE [facility] BACTERIAL VAGINOSIS Negative Negative 11/19/2024 3:18 PM BANDER AND CELLOPHANER HELPER MACHINE [facility] Other VAGINAL SWAB / Unknown Non-Blood / Unknown 11/18/2024 2:13 PM BANDER AND CELLOPHANER HELPER MACHINE 11/18/2024 2:16 PM BANDER AND CELLOPHANER HELPER MACHINE us Gisel LANGLEY MICROBIOLOGY Final Resu lt [facility] [address] [place] [address], from Last 3 Months Insurance MEDICARE PART B HB ONLY MEDICARE PART A HB ONLY [employer] BLUE HB ONLY [employer] BLUE MR PB ONLY Advance Directives * Full Code (Latest Code Status on File) Date Activated Date Inactivated Comments 02/27/2023 10:24 AM 02/27/2023 6:06 PM Question Answer Comments Code Status Discussion: Unable to Assess Preferences, Provider to review later Care Teams Outside Energy Sales Representatives Relationship Specialty Start Date End Date Gisel Mullen PA [address] [place] [address] PCP - General Physician Star Route Mail Driver 04/26/23
--- OUTSIDE RECORDS SUMMARY | 2025-01-17 13:24 | XMS_ITS ---
Author Organization [facility] Address [address] [place] [address] Care Team Providers Care Grain Buyer Name Role Phone Elsewhere, Pcp Primary Care [...] Fraction Dose Fractions Total Dose Plans Planned [id number] 05/13/2023 - 05/16/2023 700 cGy 3 / 3 2,100 cGy Reference Points Delivered DPV HDR 05/13/2023 - 05/16/2023 2,100 cGy * Course 1 B Vaginal Cuff 05/06/2023 - 05/06/2023 Treatment Period Energy Fraction Dose Fractions Total Dose Plans Planned [id number] 05/06/2023 - 05/06/2023 700 cGy 1 / 3 2,100 cGy Reference Points Delivered DPV HDR 05/06/2023 - 05/06/2023 700 cGy
--- OUTSIDE RECORDS SUMMARY | 2025-01-17 13:24 | XMS_ITS | Encounter Summary ---
Author Organization [facility] Address [address] [place] [address] Care Team Providers Care Doctor Of Dental Medicine Name Role Phone Elsewhere, Pcp Primary Care Provider Unavailabl e Reason for Visit * Reason Onset Date Comments Follow-up Orders 01/10/2025 Lab Question 01/10/2025 Encounter Details Date Type Department Care Team (Latest Contact Info) Description 01/10/2025 Clinical Communication Department of Urology in [place], [place] [address] [place] [address] Bart Greene M.D. [address] [place] [phone] Follow-up Orders; Lab Question Social History Tobacco [...] How often do you attend chur or amish services? More than 4 times per year 03/13/2023 Do you belong to any clubs o r organizations such as judaism groups, unions, fraternal or athletic groups, or [...] and heating? Not hard at all 03/13/2023 [facility] - Occupational Stress Questionnaire [...] place to sleep or slept in a care home (including now)? No 03/13/2023 Nutrition Answer [...] PM CDT Legal Sex Female 10:39 PM PREPARING BOX TENDER Gender Identity Female 03/13/2023 3:04 PM CDT Sexual Orientation Straight 03/13/2023 3: 04 PM CDT documented as of this encounter Plan of Treatment Not on file documented as of this encounter Visit Diagnoses Not on filedocumented in this encounter Care Teams Doctor Of Dental Medicine Relationship Specialty Start Date End Date Elsewhere, Pcp PCP - General Internal Medicine 03/13/23 documented as of this encounter
--- OUTSIDE RECORDS SUMMARY | 2025-01-17 13:24 | XMS_ITS | Encounter Summary ---
Author Organization [facility] Address [address] [place] [address] Care Team Providers Care Job Checker Name Role Phone Elsewhere, Pcp Primary Care Provider Unavailabl e Reason for Referral * MRI/CAT/PET Scan (Routine) - Closed Specialty Diagnoses / Procedures Referred By Contac t Referred To Contact Radiology Diagnoses Malignant Neoplasm Of Bladder (HCC) Procedures CT Chest with IV Contrast CT Chest without IV Contrast Bart Greene M.D. [address] [place] [address] Phone: tel: fax: [facility] Referral ID Status Reason Start Date Expiration Date Visits Re quested Visits Authorized [id number] Closed 08/04/2024 08/04/2025 1 1 * MRI/CAT/PET Scan (Routine) - Closed Specialty Diagnoses / Procedures Referred By Contac t Referred To Contact Radiology Diagnoses Malignant Neoplasm Of Bladder (HCC) Procedures CT Urogram without and with IV Contrast Bart Greene M.D. [address] [place] [address] Phone: tel: fax: [facility] Referral ID Status Reason Start Date Expiration Date Visits Re quested Visits Authorized [id number] Closed 08/04/2024 08/04/2025 1 1 Reason for Visit * MRI/CAT/PET Scan (Routine) - Closed Specialty Diagnoses / Procedures Referred By Contpaul t Referred To Contact Radiology Diagnoses Malignant Neoplasm Of Bladder (HCC) Procedures CT Urogram without and with IV Contrast Bart Greene M.D. [address] [place] [address] Phone: tel: fax: [facility] Referral ID Status Reason Start Date Expiration Date Visits Re quested Visits Authorized [id number] Closed 08/04/2024 08/04/2025 1 1 Encounter Details Date Type Department Care Team (Latest Contact Info) Description 12/27/2024 8:52 AM CDT - 12/27/2024 11:59 PM CDT Hospital Encounter Department of Radiology, [facility], in [place], [place] [address] [place] [address] Bart Greene M.D. [address] [place] [address] Malignant Neoplasm Of Bladder (HCC) Discharge Disposition: [...] often do you attend chur ch or rastafari services? More than 4 times per year 03/13/2023 Do you belong to any clubs o r organizations such as yarsanism groups, unions, fraternal or athletic groups, or [...] and heating? Not hard at all 03/13/2023 [facility] [place] of Occupat ional Health - Occupational Stress [...] place to sleep or slept in a mcc (including now)? No 03/13/2023 Nutrition Answer Date [...] PM CDT Legal Sex Female 10:39 PM CORE CUTTER Gender Identity Female 03/13/2023 3:04 PM CDT [...] findings are unchanged. us Bart Greene M.D. [facility] CT PROCEDURES Final Res ult * [...] * Creatinine, POCT (12/27/2024 9:18 AM CDT) [facility] Creatinine, POCT, B 0.9 0.6 - 1.0 mg/dL 12/27/2024 9:23 AM CDT PCDT Comment: ----ADDITIONAL INFORMATION---- Performed at the Point of Care Blood 12/27/2024 9:18 AM CDT 12/27/2024 9:23 AM CDT Unknown Provider LAB POCT ORDERABLES - DEVICE Fi nal Result [facility] PER[facility]S [address] [place] [address], [facility] PCDT [facility] [address] [place] [address] * Creatinine, POCT (12/27/2024 9:18 AM CDT) Pathologist [facility] Estimated GFR (eGFR), POCT 61 >=60 mL/min/BSA 12/27/2024 9:23 AM CDT PCDT Comment: Estimated GFR calculated using the 2020 CKD_EPI creatinine equation. Blood 12/27/2024 9:18 AM CDT 12/27/2024 9:23 AM CDT us Unknown Provider LAB POCT ORDERABLES - DEVICE Fi nal Result [facility] PERFORM[facility]S [address] [place] [address], [facility] PCDT [facility] [place] [facility] [address] [place] [address] documented in this encounter Visit Diagnoses Diagnosis [...] mL documented in this encounter Care Teams Job Checker Relationship Specialty Start Date End Date Elsewhere, Pcp PCP - General Internal Medicine 03/13/23 documented as of this encounter
--- OUTSIDE RECORDS SUMMARY | 2025-01-17 13:24 | XMS_ITS | Encounter Summary ---
Author Organization [facility] Address [address] [place] [address] Care Team Providers Care Men'S Furnishings Salesperson Name Role Phone Elsewhere, Pcp Primary Care Provider Unavailabl e Reason for Referral * Outpatient (Routine) - Authorized Specialty Diagnoses / Procedures Referred By Contac t Referred To Contact Oncology Estrellita Turner APRN, C.N.P., M.S.N. [address] [place] [phone] Phone: tel: fax: [facility] Referral ID Status Reason Start Date Expiration Date V isits Requested Visits Authorized [id number] Authorized 12/27/2024 06/28/2026 1 1 * MRI/CAT/PET Scan (Routine) - Authorized Specialty Diagnoses / Procedures Referred By Contac t Referred To Contact Radiology Diagnoses Malignant Neoplasm Of Endometrium (HCC) Procedures CT Abdomen Pelvis with IV Contrast Estrellita Turner APRN C.N.P., M.S.N. [address] [place] [phone] Phone: tel: fax: [facility] Referral ID Status Reason Start Date Expiration Date V isits Requested Visits Authorized [id number] Authorized 12/27/2024 03/29/2026 1 1 * MRI/CAT/PET Scan (Routine) - Authorized Specialty Diagnoses / Procedures Referred By Fidel bell Referred To Contact Radiology Diagnoses Malignant Neoplasm Of Endometrium (HCC) Procedures CT Chest with IV Contrast Estrellita Turner APRN, C.NGracia, M.S.N. [address] [place] [phone] Phone: tel: fax: [facility] Referral ID Status Reason Start Date Expiration Date V isits Requested Visits Authorized [id number] Authorized 12/27/2024 03/29/2026 1 1 Reason for Visit * Outpatient (Routine) - Closed Specialty Diagnoses / Procedures Referred By Fidel bell Referred To Contact Oncology Estrellita Turner APRN, C.NGracia, M.S.N. [address] [place] [phone] Phone: tel: fax: [facility] Referral ID Status Reason Start Date Expiration Date Visits Re quested Visits Authorized [id number] Closed 07/05/2024 01/04/2026 1 1 Encounter Details Date Type Department Care Team (Late st Contact Info) Description 12/27/2024 1:20 PM CDT Office Visit Department of Oncology in [place], [place] [address] [place] [phone] Estrellita Turner APRN, C.NGracia, M.S.N. [address] [place] [phone] Malignant Neoplasm Of Endometrium (HCC) (Primary Dx) [...] week 03/13/2023 How often do you attend [facility] or jehovah's witness services? More than 4 times per year 03/13/2023 Do you belong to any clubs o r organizations such as baptist groups, unions, fraternal or athletic groups, or [...] and heating? Not hard at all 03/13/2023 [facility] [place] of Occupat ional Health - Occupational Stress [...] place to sleep or slept in a fci (including now)? 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 Pelvic: Pump Technician: TREVER Alvarado. External genitalia without redness or [...] Primary documented in this encounter Care Teams Men'S Furnishings Salesperson Relationship Specialty Start Date End Date Elsewhere, Pcp PCP - General Internal Medicine 03/13/23 documented as of this encounter
--- OUTSIDE RECORDS SUMMARY | 2025-01-17 13:24 | XMS_ITS | Encounter Summary ---
Author Organization [facility] Address [address] [place] [address] Care Team Providers Care Academic Services Professional Name Role Phone Elsewhere, Pcp Primary Care Provider Unavailabl e Encounter Details Date Type Department Care Team (Latest Contact Info) Description 12/27/2024 8:31 AM CDT - 12/27/2024 8:51 AM CDT Hospital Encounter Department of Laboratory Medicine and Pathology, [facility] in [place], [place] [address] [place] [phone] Bart Greene M.D. [address] [place] [phone] Malignant Neoplasm Of Bladder (HCC) Discharge Disposition: [...] How often do you attend chur or scientologist services? More than 4 times per year [...] PM CDT Legal Sex Female 10:39 PM FILER AND SANDER Gender Identity Female 03/13/2023 3:04 PM CDT [...] M.D. LAB BLOOD ADD-ON Final Resu lt [facility] [address] [place] [address], [facility] DTL [facility] [address] [place] [address] * (ABNORMAL) Comprehensive Metabolic Panel (12/27/2024 8:47 [...] M.D. LAB BLOOD ADD-ON Final Resu lt [facility] [address] [place] [address], [facility] DTL [facility] [address] [place] [address] documented in this encounter Visit Diagnoses Diagnosis Malignant Neoplasm Of Bladder (HCC) documented in this encounter Care Teams Academic Services Professional Relationship Specialty Start Date End Date Elsewhere, Pcp PCP - General Internal Medicine 03/13/23 documented as of this encounter
--- OUTSIDE RECORDS SUMMARY | 2025-01-17 13:24 | XMS_ITS | Encounter Summary ---
Author Organization [facility] Address [address] [place] [address] Care Team Providers Care Master Electrician Name Role Phone Elsewhere, Pcp Primary Care Provider Unavailabl e Reason for Visit * Reason Onset Date Comments Pre-visit Intake 12/24/2024 * Appointment Request (Routine) - Authorized Specialty Diagnoses / Procedures Referred By Fidel bell Referred To Contact Urology Referral ID Status Reason Start Date Expiration Date V isits Requested Visits Authorized [id number] Authorized 10/11/2024 10/11/2025 1 1 Encounter Details Date Type Department Care Team (Latest Contact Info) Description 12/24/2024 12:00 PM FIRE SUPPRESSION CAPTAIN Clinical Communication Virtual Review in [address] [phone] Pre-visit Intake Social History Tobacco Use Types [...] How often do you attend chur or mosque services? More than 4 times per year [...] and heating? Not hard at all 03/13/2023 [facility] of Occupat ional Health - Occupational [...] PM CDT Legal Sex Female 10:39 PM FIRE SUPPRESSION CAPTAIN Gender Identity Female 03/13/2023 3:04 PM CDT Sexual Orientation Straight 03/13/2023 3: 04 PM CDT documented as of this encounter Plan of Treatment Not on file documented as of this encounter Visit Diagnoses Not on filedocumented in this encounter Care Teams Master Electrician Relationship Specialty Start Date End Date Elsewhere, Pcp PCP - General Internal Medicine 03/13/23 documented as of this encounter
--- OUTSIDE RECORDS SUMMARY | 2025-01-17 13:24 | XMS_ITS | Encounter Summary ---
Author Organization [facility] Address [address] [place] [address] Care Team Providers Care Upholsterer Assembly Line Name Role Phone Elsewhere, Pcp Primary Care Provider Unavailabl e Reason for Visit * Reason Onset Date Comments Phone Call 11/09/2024 Encounter Details Date Type Department Care Team (Late st Contact Info) Description 11/09/2024 Clinical Communication Department of Urology in [place], [place] [address] [place] [phone] Chavez Ferrer M.D. [address] [place] [phone] Phone Call Social History Tobacco Use Types [...] often do you attend chur ch or mosque services? More than 4 times per year 03/13/2023 Do you belong to any clubs o r organizations such as mu-ism groups, unions, fraternal or athletic groups, or [...] heating? Not hard at all 03/13/2023 [facility] of Occupat ional Health - Occupational [...] PM CDT Legal Sex Female 10:39 PM NUTRITION TECHNICIAN Gender Identity Female 03/13/2023 3:04 PM CDT Sexual Orientation Straight 03/13/2023 3: 04 PM CDT documented as of this encounter Miscellaneous Notes * Telephone Encounter - Matheus Albarran IV, M.D. - 11/09/2024 3:19 PM NUTRITION TECHNICIAN Telephone call with patient She describes small-volume [...] can revisit the symptoms then as well. ITION TECHNICIAN documented in this encounter Plan of Treatment Not on file documented as of this encounter Visit Diagnoses Not on filedocumented in this encounter Care Teams Upholsterer Assembly Line Relationship Specialty Start Date End Date Elsewhere, Pcp PCP - General Internal Medicine 03/13/23 documented as of this encounter
--- OUTSIDE RECORDS SUMMARY | 2025-01-17 13:24 | XMS_ITS | Encounter Summary ---
Author Organization [facility] Address [address] [place] [address] Care Team Providers Care Ad Operations Specialist Name Role Phone Elsewhere, Pcp Primary Care Provider Unavailabl e Reason for Referral * Outpatient (Routine) - Authorized Specialty Diagnoses / Procedures Referred By Contac t Referred To Contact Diagnoses Malignant Neoplasm Of Bladder (HCC) Procedures URO Stoma care Gaurang Seth P.A.-Siva [address] [place] [phone] Phone: tel: fax: [facility] Referral ID Status Reason Start Date Expiration Date V isits Requested Visits Authorized [id number] Authorized 12/27/2024 03/29/2026 12 12 * MRI/CAT/PET Scan (Routine) - Authorized Specialty Diagnoses / Procedures Referred By Contac t Referred To Contact Radiology Diagnoses Malignant Neoplasm Of Bladder (HCC) Procedures CT Chest without IV Contrast Gaurang Seth P.A.-CJhonathan [address] [place] [phone] Phone: tel: fax: [facility] Referral ID Status Reason Start Date Expiration Date V isits Requested Visits Authorized [id number] Authorized 12/27/2024 03/29/2026 1 1 * Outpatient (Routine) - Authorized Specialty Diagnoses / Procedures Referred By Contac t Referred To Contact Urology Gaurang Seth P.A.-C. [address] [place] [phone] Phone: tel: fax: [facility] Referral ID Status Reason Start Date Expiration Date V isits Requested Visits Authorized [id number] Authorized 12/27/2024 06/28/2026 1 1 * MRI/CAT/PET Scan (Routine) - Authorized Specialty Diagnoses / Procedures Referred By Fidel t Referred To Contact Radiology Diagnoses Malignant Neoplasm Of Bladder (HCC) Procedures CT Urogram without and with IV Contrast Gaurang Seth P.A.-C. [address] [place] [phone] Phone: tel: fax: [facility] Referral ID Status Reason Start Date Expiration Date V isits Requested Visits Authorized [id number] Authorized 12/27/2024 03/29/2026 1 1 Reason for Visit * Outpatient (Routine) - Closed Specialty Diagnoses / Procedures Referred By Contac t Referred To Contact Urology Bart Greene M.D. [address] [place] [phone] Phone: tel: fax: Chavez Ferrer M.D. [address] [place] [phone] Phone: tel: fax: Referral ID Status Reason Start Date Expiration Date Visits Re quested Visits Authorized [id number] Closed 08/04/2024 02/03/2026 1 1 Encounter Details Date Type Department Care Team (Late st Contact Info) Description 12/27/2024 3:30 PM CDT Office Visit Department of Urology in [place], [place] [address] [place] [phone] Chavez Ferrer M.D. 200 [place] [phone] Malignant Neoplasm Of Bladder (HCC) (Primary Dx) [...] How often do you attend chur or judaism services? More than 4 times per year 03/13/2023 Do you belong to any clubs o r organizations such as mandaen groups, unions, fraternal or athletic groups, or [...] hard at all 03/13/2023 [facility] - Occupational Stress Questionnaire Answer Date [...] place to sleep or slept in a retirement (including now)? No 03/13/2023 Nutrition Answer Date [...] PM CDT Legal Sex Female 10:39 PM CLINICAL PROJECT COORDINATOR Gender Identity Female 03/13/2023 3:04 PM CDT [...] Bladder (HCC) Expected: 12/27/2024, Expires: 03/29/2026 Cytology Non-SCHOOL PATROL Pathology and Cytology Routine Malignant Neoplasm Of [...] Primary documented in this encounter Care Teams Ad Operations Specialist Relationship Specialty Start Date End Date Elsewhere, Pcp PCP - General Internal Medicine 03/13/23 documented as of this encounter
--- OUTSIDE RECORDS SUMMARY | 2025-01-17 13:24 | XMS_ITS | Clinical Summary ---
Author Organization [facility] Address [address] [place] [address] Care Team Providers Care Bus Driver School Name Role Phone Elsewhere, Pcp Primary Care Provider Unavailabl e Source Comments Patient records contain information from all sites at [facility]. For routine questions regarding patient records, call [phone] during business hours, M-F 8:00 AM - 5:00 PM Central Time. Record requests for emergency care only can be directed to [phone] at any time.[facility] Allergies No known active allergies Medications * [...] 01/10/2025 Clinical Communication Department of Urology in [place], [place] [address] [place] [phone] Bart Greene M.D. Follow-up Orders; Lab Question 12/29/2024 Clinical Communication Department of Urology in [place], [place] [address] [place] [phone] Chavez Ferrer M.D. After Visit Question 12/27/2024 3:30 PM CDT Office Visit Department of Urology in [place], [place] [address] [place] [phone] Chavez Ferrer M.D. Malignant Neoplasm Of Bladder (HCC) (Primary Dx) 12/27/2024 1:20 PM CDT Office Visit Department of Oncology in [place], [place] [address] [place] [phone] Estrellita Turner APRN, C.NMaria Ines., M.S.N. Malignant Neoplasm Of Endometrium (HCC) (Primary Dx) 12/27/2024 8:52 AM CDT - 12/27/2024 11:59 PM CDT Hospital Encounter Department of Radiology, [facility], in [place], [place] [address] [place] [phone] Bart Greene M.D. Malignant Neoplasm Of Bladder (HCC) Discharge Disposition: Home or Self Care 12/27/2024 8:31 AM CDT - 12/27/2024 8:51 AM CDT Hospital Encounter Department of Laboratory Medicine and Pathology, [facility] in [place], [place] [address] [place] [phone] Bart Greene M.D. Malignant Neoplasm Of Bladder (HCC) Discharge Disposition: Home or Self Care 12/24/2024 12:00 PM [facility] Clinical Communication Virtual Review in [place], [place] 200 [place] [phone] Pre-visit Intake 11/09/2024 Clinical Communication Department of Urology in [place], [place] [address] [place] [phone] Chavez Ferrer M.D. Phone Call from Last [...] How often do you attend chur or moravian services? More than 4 times per year 03/13/2023 Do you belong to any clubs o r organizations such as congregational groups, unions, fraternal or athletic groups, or [...] and heating? Not hard at all 03/13/2023 [facility] of Occupat ional Health - Occupational Stress [...] place to sleep or slept in a usp (including now)? No 03/13/2023 Nutrition Answer Date [...] PM CDT Legal Sex Female 10:39 PM ACTUARIAL SCIENCE TEACHER Gender Identity Female 03/13/2023 3:04 PM CDT [...] this topic Medical Devices Implanted Type Area Dance Teacher Device Identifier Shelf Expiration Date Model / Serial / Lot Clp Hrzn Ti 24 Clp Casey - [id number] Implanted:Qt y: 2 on 03/20/2023 by Chavez Ferrer M.D. at [facility] Hardware e.g. pins/screws /rods N/A: [employer] [id number] / / Clp Hrzn Ti 6 Clp Lg Orng - [id number] Implanted:Qt y: 9 on 03/20/2023 by Chavez Ferrer M.D. at [facility] Hardware e.g. pins/screws /rods N/A: [employer] [id number] / / Stnt Uret Cls Tp Srg [id number] - [id number] Implanted:Qt y: 1 on 03/20/2023 by Chavez Ferrer M.D. at [facility] Ureteral Stent [facility] Susy [id number] 01/28/2027 [id number] / / [id number] Description:2 ureter stents in package; implanted Procedures [...] 9:18 AM CDT 12/27/2024 9:23 AM CDT [facility] Provider LAB POCT ORDERABLES - DEVICE Fi nal Result [facility] [address] [place] [address], [facility] PCDT [facility] [address] [place] [address] * Vitamin B12 Assay (12/27/2024 8:47 AM CDT) Pathologist [facility] Vitamin B12 Assay, S [phone] - [...] M.D. LAB BLOOD ADD-ON Final Resu lt [facility] [address] [place] [address], [place] DTL [facility] [address] [place] [address] * (ABNORMAL) Comprehensive Metabolic Panel (12/27/2024 8:47 AM CDT) [facility] Potassium, S 4.6 3.6 - 5.2 mmol/L [...] M.D. LAB BLOOD ADD-ON Final Resu lt [facility] [address] [place] [address], [place] DTL Formerly named [facility] [address] [place] [address] from Last 3 Months Insurance MEDICARE [facility] Care Teams Bus Driver School Relationship Specialty Start Date End Date Elsewhere, Pcp PCP - General Internal Medicine 03/13/23
--- OUTSIDE RECORDS SUMMARY | 2025-01-17 13:24 | XMS_ITS | Encounter Summary ---
Author Organization [facility] Address [address] [place] [address] Care Team Providers Care Pull Socket Assembler Name Role Phone Elsewhere, Pcp Primary Care Provider Unavailabl e Reason for Visit * Reason Onset Date Comments After Visit Question 12/29/2024 Encounter Details Date Type Department Care Team (Latest Contact Info) Description 12/29/2024 Clinical Communication Department of Urology in [place], [place] [address] [place] [phone] Chavez Ferrer M.D. [address] [place] [phone] After Visit Question Social History Tobacco Use [...] often do you attend chur ch or sikhism services? More than 4 times per year 03/13/2023 Do you belong to any clubs o r organizations such as gnosticism groups, unions, fraternal or athletic groups, or [...] and heating? Not hard at all 03/13/2023 [facility] of Occupat ional Health - [...] place to sleep or slept in a jail (including now)? No 03/13/2023 Nutrition Answer Date [...] PM CDT Legal Sex Female 10:39 PM TEST EQUIPMENT MECHANIC Gender Identity Female 03/13/2023 3:04 PM [...] Fever documented in this encounter Care Teams Pull Socket Assembler Relationship Specialty Start Date End Date Elsewhere, Pcp PCP - General Internal Medicine 03/13/23 documented as of this encounter
== END 2025-01-17 13:48 | disposition home or self-care (01) ==
PROVIDERS: Emergency Provider Student in an Organized Health Care Education/Training Program; PCP Physician Assistant
DX: R13.10 Dysphagia, unspecified (principal); T42.6X5A Adverse effect of other antiepileptic and sedative-hypnotic drugs, initial encounter
CPT/HCPCS: 99283

== ENCOUNTER 2025-05-11 13:00 | Outpatient (RCR) | payer MEDICARE, BC, SELFPAY | END 2025-08-11 16:18 | disposition home or self-care (01) | PROVIDERS: PCP Physician Assistant; Visit Provider Physician Assistant | DX: R26.81 Unsteadiness on feet (principal); M25.561 Pain in right knee; M25.562 Pain in left knee; G89.29 Other chronic pain; M25.551 Pain in right hip; M25.552 Pain in left hip; Z51.89 Encounter for other specified aftercare | CPT/HCPCS: 97110; 97112; 97161 ==